=== PATIENT | female | born 1965 | race Caucasian/White ===

== ENCOUNTER → 2016-10-11 | Outpatient (CLI) | payer OTHER ==
--- NOTE | 2016-10-11 12:22 | MR ---
EXAMINATION TYPE: MR brain wo/w con DATE OF EXAM: 10/11/2016 8:55 AM COMPARISON: 10/16/2015 and 07/23/2012. HISTORY: 50-year-old female with dysphagia. TECHNIQUE: Multiplanar, multisequence images of the brain and brainstem were acquired before and aft er administration of 15 mL IV MultiHance. Diffusion weighted imaging is performed. FINDINGS: No evidence for acute infarction, hemorrhage, mass, mass effect, midline shift, herniation, effacemen t of basal cisterns, or extra-axial fluid collection. The ventricles and sulci are age-appropriate. Major intracranial flow voids are intact. On T2/FLAIR weighted sequencing: - A couple foci of bright signal in the posterior right frontal juxtacortical white matter are redemo nstrated, stable, measuring up to 6 mm. - A 5 mm focus in the left pericallosal white matter is unchanged. - 2-3 foci in the juxtacortical and deep white matter of the left frontal lobe anteriorly are unchang ed. - A 4 mm focus in the lateral and inferior left frontal lobe, axial image 19 is unchanged. Midline structures demonstrate normal morphology. The craniocervical junction is normal. Post contrast images demonstrate no evidence of pathologic enhancement. Dural venous sinuses are pat ent. Rightward nasal septal deviation and mild mucosal thickening within the ethmoid air cells. Globes are intact. IMPRESSION: 1. Stable nonspecific T2 bright signal foci with minimal to mild overall burden. 2. No acute intracranial abnormality seen.
== END | disposition home or self-care (01) ==
LOC: RADMRIMAIN 08:05
PROVIDERS: ATTEND Psychiatry & Neurology Neurology
DX: R93.0 Abnormal findings on diagnostic imaging of skull and head, not elsewhere classified (principal); R13.10 Dysphagia, unspecified
CPT/HCPCS: 70553; A9577

== ENCOUNTER → 2016-10-12 | Outpatient (CLI) | payer OTHER ==
--- NOTE | 2016-10-12 11:39 | FL ---
EXAMINATION TYPE: FL barium swallow DATE OF EXAM ORDERED: 10/12/2016 9:19 AM HISTORY: Dysphagia. COMPARISON: Previous study of 05/12/2016. FINDINGS: The patient swallowed barium of these. There is no evidence of obstructing or constricting disease. There is a prominent Schatzki's B ring in the lower esophagus. The mucosal pattern througho ut the esophagus is unremarkable. Limited views of the stomach are normal. IMPRESSION: PROMINENT SCHATZKI B RING IN THE LOWER ESOPHAGUS.
== END | disposition home or self-care (01) ==
LOC: RADFLWHC 08:17
PROVIDERS: ATTEND Psychiatry & Neurology Neurology
DX: K22.2 Esophageal obstruction (principal)
CPT/HCPCS: 74220

== ENCOUNTER → 2016-10-14 | Outpatient (CLI) | payer OTHER ==
--- NOTE | 2016-10-14 10:01 | CT ---
EXAMINATION TYPE: CT soft tissue neck wo con DATE OF EXAM: 10/14/2016 9:31 AM HISTORY: Pt states her neck "collapses" if she doesn't wear soft collar causing her dysphagia and NINO COMPARISON: NONE CT DLP: 271 mGycm. Automated Exposure Control for Dose Reduction was Utilized. TECHNIQUE: CT scan of the neck is performed without IV contrast, axial images are obtained, coronal and sagittal reformatted images are reviewed. FINDINGS: Exam is noted suboptimal due to lack of IV contrast limiting evaluation for mucosal lesions and subcentimeter adenopathy. Airway: Nasopharyngeal and oropharyngeal airways are grossly patent. Region of epiglottis and vallecu la appears within normal limits. Hypopharyngeal airway extending into proximal trachea is unremarkabl e. Thyroid gland is within normal limits in size. Visualized lung apices are clear with minimal apica l scarring bilaterally noted. Parotid/submandibular glands: No gross abnormality seen. Carotid/Vascular Structures: No significant calcified plaque identified in the carotid bulb level. Osseous Structures: Nasal septum is noted deviated to right of midline possibly related to remote tra stefani. Paranasal sinuses are clear. Other: Some scattered subcentimeter lymph nodes are seen throughout the neck bilaterally. No greater than 1 cm suspicious neck lymph nodes are clearly identified. IMPRESSION: No significant abnormality is seen. Visualized airway is felt within normal limits.
== END | disposition home or self-care (01) ==
LOC: RADCTMAIN 09:15
PROVIDERS: ATTEND Psychiatry & Neurology Neurology
DX: R13.10 Dysphagia, unspecified (principal)
CPT/HCPCS: 70490

== ENCOUNTER 2016-11-18 09:18 | Day surgery (SDC) | payer OTHER ==
[2016-11-15 15:42] VITALS: BMI 23.3
[~2016-11-18 09:18] MED LIST: LACTATED RINGERS 1,000 ML IV SCH
[2016-11-18 09:38] VITALS: RESP 16; TEMP 97.8
[2016-11-18] MEDS ORDERED: PROPOFOL 10 MG/ML 20 ML VIAL IV ONE (10:24)
[2016-11-18] MEDS ORDERED: LIDOCAINE 1% INJ 10MG/ML (20 ML MDV) ONE (10:24)
--- NOTE | 2016-11-18 10:37 | P.PCN ---
Date of Procedure: 11/18/16 Procedure(s) Performed: BRIEF HISTORY: Patient is a 51-year-old, pleasant, white female, scheduled for an upper endoscopy as a part of evaluation of dysphagia for the last 2 months duration. She recently had a CT of the neck and was unremarkable. Her symptoms started after she had Botox injection for chronic migraines. She reports no heartburn and denies any odynophagia. PROCEDURE PERFORMED: Esophagogastroduodenoscopy with biopsy. PREOPERATIVE DIAGNOSIS: Dysphagia of 2 months duration. IV sedation per anesthesia. PROCEDURE: After informed consent was obtained, the patient was brought into the endoscopy unit. IV conscious sedation was administered by Anesthesia under continuous monitoring. Initially the Olympus GIF-140 video endoscope was inserted into the mouth. Esophagus intubated without any difficulty. It was gradually advanced into the stomach and duodenum and carefully examined. The bulb and the second part of the duodenum appeared normal. The scope at this time was withdrawn to the stomach, adequately insufflated with air, and upon careful examination, mucosa of the antrum mild gastritis and biopsies were done from this area. The body, cardia and the fundus appeared normal. There was evidence of Penny fundoplication noted. The scope was then withdrawn into the esophagus. The GE junction was located at 36 cm from the incisors. Biopsies were done from the distal esophagus to rule out eosinophilic esophagitis. The esophagus appeared normal. There were no erosions or ulcerations seen. The proximal cervical esophagus was carefully examined and no obvious mucosal lesions identified and the patient tolerated the procedure well. IMPRESSION: 1. Normal-appearing esophagus with no evidence of esophagitis, esophageal stricture or esophageal web. 2. Mild antral gastritis. RECOMMENDATIONS: The findings of this examination were discussed with the patient as well as her family. She was advised to follow with the biopsy results. If she continues to have persistent symptoms and dysphagia will consider proceeding with a modified barium swallow to evaluate for oropharyngeal dysphagia.
[2016-11-18 10:55] VITALS: BP 138/71; PULSE 58
== END 2016-11-18 11:40 | disposition home or self-care (01) ==
LOC: ORWHC2ENDO 09:18
PROVIDERS: ATTEND Internal Medicine Gastroenterology
DX: K29.50 Unspecified chronic gastritis without bleeding (principal); K20.9 Esophagitis, unspecified; G43.909 Migraine, unspecified, not intractable, without status migrainosus; J45.909 Unspecified asthma, uncomplicated; J44.9 Chronic obstructive pulmonary disease, unspecified; N20.9 Urinary calculus, unspecified; M79.7 Fibromyalgia; F39 Unspecified mood [affective] disorder; Z79.891 Long term (current) use of opiate analgesic; Z79.899 Other long term (current) drug therapy
CPT/HCPCS: 88305; 88342; 43239; J2001; J2704

== ENCOUNTER 2016-12-04 13:20 | Emergency (ER) | payer OTHER ==
[2016-12-04 13:27] VITALS: BP 140/70; PULSE 99; RESP 18; TEMP 97.8
[2016-12-04] MEDS ORDERED: SODIUM CHLORIDE 0.9% 1,000 ML IV STA ×2 (14:37)
[2016-12-04] MEDS ORDERED: RX INFO: IV CONTRAST WAS GIVEN 1 EACH MISC MISCELLANE PRN (14:37)
[2016-12-04] MEDS ORDERED: IOHEXOL 350 MG/ML 25 ML BOTTLE (ORAL USE) PO PRN (14:37)
[2016-12-04] MEDS ORDERED: ONDANSETRON 4 MG/2 ML VIAL IVP STA (14:37)
[2016-12-04] MEDS ORDERED: DICYCLOMINE 10 MG/ML 2 ML AMP IM STA (14:39)
--- NOTE | 2016-12-04 14:48 | ED ---
Nausea/Vomiting/Diarrhea HPI - General Chief complaint: Nausea/Vomiting/Diarrhea Stated complaint: Female Source: patient Mode of arrival: ambulatory Limitations: no limitations - History of Present Illness Initial comments: Patient is a 51-year-old female who presents for evaluation for 1+ month of constant diarrhea and left lower quadrant abdominal cramping. Past medical history as below. Patient has a known history of colitis and had constant nausea and vomiting in the past. She is followed by GI. Recently had an EGD on 11/18/2016 which revealed gastritis. Michael has a history of a Schatzki be ringing in the lower esophagus. She stated that she also had a colonoscopy a few weeks ago which was apparently normal and that there were no "bacteria there ". Again she has been having one month of constant diarrhea. She is tried Pepto-Bismol, Imodium with no relief. She is also tried increasing her fiber. She discussed this with her purchasing manager who told her to continue the course. She comes in today because the diarrhea has significantly worsened. She is somewhat incontinent. She stated that she had dark stools which are now an orange color. She also stated that she recently "passed out" while having a bowel movement. She states whenever she drinks or eats immediately goes to her system. She also has some mild nausea and vomiting which is at baseline for her. No significant change. She denies fever, headaches, URI symptoms, shortness of breath, cough, chest pain, significant abdominal pain, pain or burning with urination. - Related Data Home Medications Medication Instructions Recorded Confirmed Albuterol Inhaler [Ventolin Hfa 1 - 2 puff INHALATION RT-Q6H PRN 02/10/16 Inhaler] Baclofen [Lioresal] 10 mg PO TID PRN 02/10/16 12/04/16 Butalb/APAP/Caff 50-325-40Mg 1 tab PO BID PRN 02/10/16 12/04/16 [Fioricet 50-325-40] Cholecalciferol [Vitamin D3] 2,000 unit PO DAILY 02/10/16 12/04/16 Dicyclomine [Bentyl] 10 mg PO TID 02/10/16 12/04/16 Gabapentin [Neurontin] 600 mg PO BID 02/10/16 12/04/16 Glucosamine HCl/Chondr Watters A Na 1 tab PO DAILY 02/10/16 12/04/16 [Osteo Bi-Flex Caplet] Mesalamine [Asacol Hd] 400 mg PO TID 02/10/16 12/04/16 Ondansetron [Zofran ODT] 8 mg PO Q8HR PRN 02/10/16 12/04/16 Simvastatin [Zocor] 20 mg PO HS 02/10/16 12/04/16 Verapamil HCl [Calan] 120 mg PO HS 02/10/16 12/04/16 Sertraline [Zoloft] 50 mg PO DAILY 11/15/16 12/04/16 Black Cohosh Root [Black Cohosh] 200 mg PO DAILY 12/04/16 12/04/16 DULoxetine HCL [Cymbalta] 60 mg PO DAILY 12/04/16 12/04/16 HYDROcodone/APAP 5-325MG [Wister 1 tab PO Q6H PRN 12/04/16 12/04/16 5-325] Previous Rx's Medication Instructions Recorded metroNIDAZOLE [Flagyl] 500 mg PO Q8HR 14 Days 12/04/16 Allergies Allergy/AdvReac Type Severity Reaction Status Date / Time venom-honey bee Allergy Severe Throat Verified 12/04/16 15:05 [bee venom (honey bee)] Swelling coconut oil Allergy Unknown Rash/Hives Verified 12/04/16 15:05 Review of Systems ROS Statement: Those systems with pertinent positive or pertinent negative responses have been documented in the HPI. ROS Other: All systems not noted in ROS Statement are negative. 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 , STATES SHE IS HAVING ALOT OF NECK PAIN AND SOME S.O.B. History of Any Multi-Drug Resistant Organisms: None Reported Past Surgical History: Appendectomy, Cholecystectomy, Hysterectomy, Orthopedic Surgery, Tubal Ligation, Uterine Ablation Additional Past Surgical History / Comment(s): carpel tunnel to left, ganglion cyst, SYED FUNDOPLASTY. Past Anesthesia/Blood Transfusion Reactions: No Reported Reaction Past Psychological History: Anxiety, Depression Additional Psychological History / Comment(s): NO MEDS. Smoking Status: Light tobacco smoker Past Alcohol Use History: Rare Additional Past Alcohol Use History / Comment(s): quit smoking 5-12-15, smoked on & off 30 yrs. CURRENTLY SMOKES OCCASIONALLY WITH STRESS. Past Drug Use History: Marijuana - Past Family History Mother Family Medical History: No Reported History General Exam Limitations: no limitations General appearance: alert, in no apparent distress, other (Well-appearing) Head exam: Present: atraumatic, normocephalic, normal inspection Eye exam: Present: normal appearance, PERRL, EOMI. Absent: scleral icterus, conjunctival injection, periorbital swelling ENT exam: Present: normal exam, mucous membranes dry, mucous membranes moist Neck exam: Present: normal inspection. Absent: tenderness, meningismus, lymphadenopathy Respiratory exam: Present: normal lung sounds bilaterally. Absent: respiratory distress, wheezes, rales, rhonchi, stridor Cardiovascular Exam: Present: regular rate, normal rhythm, normal heart sounds. Absent: systolic murmur, diastolic murmur, rubs, gallop, clicks GI/Abdominal exam: Present: soft, normal bowel sounds, other (Hyperactive bowel sounds in all 4 quadrants. No high-pitched bowel sounds to suggest obstruction. Abdomen is soft. Pain with palpation in the left lower quadrant. She actually grabbed my hand and told me to stop. No peritoneal signs. No rebound tenderness.). Absent: distended, tenderness, guarding, rebound, rigid Extremities exam: Present: normal inspection, full ROM, normal capillary refill. Absent: tenderness, pedal edema, joint swelling, calf tenderness Back exam: Present: normal inspection Neurological exam: Present: alert, oriented X3, CN II-XII intact Psychiatric exam: Present: normal affect, normal mood Skin exam: Present: warm, dry, intact, normal color. Absent: rash Course Vital Signs 12/04/16 13:24 Temperature 97.8 F Pulse Rate 99 Respiratory 18 Rate Blood Pressure 140/70 O2 Sat by Pulse 100 Oximetry Medical Decision Making - Medical Decision Making Patient resents for evaluation for left lower quadrant abdominal pain, constant diarrhea over the past 1+ month. Has a purchasing manager for follow-up. With her history of colitis and left lower quadrant pain we'll get a CT with by mouth and IV contrast. Abdominal labs. IV fluids. Zofran. Bentyl. We'll also order stool studies. 1702: Laboratory studies as below. Within normal limits. No significant leukocytosis. +1 ketones in the urine. No urinary tract infection. Noted to have fecal occult positive stool. However, the patient is regularly taking Pepto-Bismol and is most likely a false negative as she is not having black or bright red stools. Notified by staff that the patient tested positive for C. diff. Awaiting CT abdomen and pelvis. 1810: Reviewed CT findings. Evidence of pancolitis. No signs of perforation. No free air in the abdomen. No other acute abnormalities. Discussed the findings with the patient. Gave patient the option of observation here versus discharge home with prescription for Flagyl and follow-up with her purchasing manager to his outside of this hospital system. She is actually an excellent candidate as there are no signs of ileus, leukocytosis, intractable pain. Discussed risks and benefits. Patient elected to the discharge home with follow-up with her own purchasing manager in the [facility] system. We will write a prescription for 14 days of Flagyl. Recommended that she discontinue all of her intestine motility drugs including lynzest, Bentyl, loperamide. Patient voiced understanding. Also recommended that she avoid playing with children are elderly. Frequent handwashing. We will contact her purchasing manager tomorrow morning for follow-up appointment. Discussed signs and symptoms on when to return to the emergency department for further evaluation. This includes high fevers, worsening diarrhea, black stools, severe abdominal pain, or any other changes in her symptoms. - Lab Data Result diagrams: 12/04/16 15:25 12/04/16 15:25 Lab Results 12/04/16 12/04/16 12/04/16 Range/Units 15:25 15:25 15:25 WBC 10.7 H (3.8-10.6) k/uL RBC 4.40 (3.80-5.40) m/uL Hgb 14.0 (11.4-16.0) gm/dL Hct 40.9 (34.0-46.0) % MCV 92.9 (80.0-100.0) fL MCH 31.8 (25.0-35.0) pg MCHC 34.2 (31.0-37.0) g/dL RDW 13.2 (11.5-15.5) % Plt Count 239 (150-450) k/uL Neutrophils % 77 % Lymphocytes % 8 % Monocytes % 11 % Eosinophils % 1 % Basophils % 0 % Neutrophils # 8.2 H (1.3-7.7) k/uL Lymphocytes # 0.9 L (1.0-4.8) k/uL Monocytes # 1.2 H (0-1.0) k/uL Eosinophils # 0.1 (0-0.7) k/uL Basophils # 0.0 (0-0.2) k/uL Sodium 139 (137-145) mmol/L Potassium 3.5 (3.5-5.1) mmol/L Chloride 101 (98-107) mmol/L Carbon Dioxide 23 (22-30) mmol/L Anion Gap 15 mmol/L BUN 13 (7-17) mg/dL Creatinine 0.67 (0.52-1.04) mg/dL Est GFR (MDRD) Af Amer >60 (>60 ml/min/1.73 sqM) Est GFR (MDRD) Non-Af >60 (>60 ml/min/1.73 sqM) Glucose 87 (74-99) mg/dL Calcium 9.2 (8.4-10.2) mg/dL Total Bilirubin 0.6 (0.2-1.3) mg/dL AST 28 (14-36) U/L ALT 38 (9-52) U/L Alkaline Phosphatase 94 (38-126) U/L Total Protein 6.3 (6.3-8.2) g/dL Albumin 3.7 (3.5-5.0) g/dL Amylase <30 L (30-110) U/L Lipase 14 L (23-300) U/L Urine Color Yellow Urine Appearance Cloudy H (Clear) Urine pH 6.0 (5.0-8.0) Ur Specific [place] 1.019 (1.001-1.035) Urine Protein Trace H (Negative) Urine Glucose (UA) Negative (Negative) Urine Ketones 1+ H (Negative) Urine Blood Negative (Negative) Urine Nitrate Negative (Negative) Urine Bilirubin Negative (Negative) Urine Urobilinogen <2.0 (<2.0) mg/dL Ur Leukocyte Esterase Negative (Negative) Urine RBC 2 (0-5) /hpf Urine WBC 2 (0-5) /hpf Ur Squamous Epith Cells 11 H (0-4) /hpf Amorphous Sediment Occasional H (None) /hpf Hyaline Casts 1 (0-2) /lpf Urine Mucus Rare H (None) /hpf Stool Occult Blood (Negative) C. difficile (EIA) Intrp (Negative) 12/04/16 12/04/16 Range/Units 16:11 16:11 WBC (3.8-10.6) k/uL RBC (3.80-5.40) m/uL Hgb (11.4-16.0) gm/dL Hct (34.0-46.0) % MCV (80.0-100.0) fL MCH (25.0-35.0) pg MCHC (31.0-37.0) g/dL RDW (11.5-15.5) % Plt Count (150-450) k/uL Neutrophils % % Lymphocytes % % Monocytes % % Eosinophils % % Basophils % % Neutrophils # (1.3-7.7) k/uL Lymphocytes # (1.0-4.8) k/uL Monocytes # (0-1.0) k/uL Eosinophils # (0-0.7) k/uL Basophils # (0-0.2) k/uL Sodium (137-145) mmol/L Potassium (3.5-5.1) mmol/L Chloride (98-107) mmol/L Carbon Dioxide (22-30) mmol/L Anion Gap mmol/L BUN (7-17) mg/dL Creatinine (0.52-1.04) mg/dL Est GFR (MDRD) Af Amer (>60 ml/min/1.73 sqM) Est GFR (MDRD) Non-Af (>60 ml/min/1.73 sqM) Glucose (74-99) mg/dL Calcium (8.4-10.2) mg/dL Total Bilirubin (0.2-1.3) mg/dL AST (14-36) U/L ALT (9-52) U/L Alkaline Phosphatase (38-126) U/L Total Protein (6.3-8.2) g/dL Albumin (3.5-5.0) g/dL Amylase (30-110) U/L Lipase (23-300) U/L Urine Color Urine Appearance (Clear) Urine pH (5.0-8.0) Ur Specific [place] (1.001-1.035) Urine Protein (Negative) Urine Glucose (UA) (Negative) Urine Ketones (Negative) Urine Blood (Negative) Urine Nitrate (Negative) Urine Bilirubin (Negative) Urine Urobilinogen (<2.0) mg/dL Ur Leukocyte Esterase (Negative) Urine RBC (0-5) /hpf Urine WBC (0-5) /hpf Ur Squamous Epith Cells (0-4) /hpf Amorphous Sediment (None) /hpf Hyaline Casts (0-2) /lpf Urine Mucus (None) /hpf Stool Occult Blood Positive H (Negative) C. difficile (EIA) Intrp Positive A (Negative) Disposition Clinical Impression: C. difficile colitis, Diarrhea Disposition: HOME SELF-CARE Condition: Good Instructions: Clostridium Difficile Infection (ED) Prescriptions: metroNIDAZOLE [Flagyl] 500 mg PO Q8HR 14 Days Referrals: Holly Jaffe DO [Primary Care Provider] - 1-2 days
[2016-12-04 15:48] LABS: ALT 38 U/L (9-52); AST 28 U/L (14-36); Alkaline Phosphatase 94 U/L (38-126); Amylase <30 U/L (30-110); Anion Gap 15 mmol/L; Blood Urea Nitrogen 13 mg/dL (7-17); Calcium 9.2 mg/dL (8.4-10.2); Carbon Dioxide 23 mmol/L (22-30); Chloride 101 mmol/L (98-107); Glucose 87 mg/dL (74-99); Non-African American GFR(MDRD) >60 (>60 ml/min/1.73 sqM); Potassium 3.5 mmol/L (3.5-5.1); Sodium 139 mmol/L (137-145); Total Bilirubin 0.6 mg/dL (0.2-1.3); Total Protein 6.3 g/dL (6.3-8.2)
[2016-12-04 15:52] LABS: Basophils % (A) 0 %; CH 31.8; CHCM 34.4; Eosinophils # (A) 0.1 k/uL (0-0.7); Eosinophils % (A) 1 %; HCT 40.9 % (34.0-46.0); HDW 2.53; Immature Gran Flag Slight; Luc # (Auto) 0.28; Luc % (Auto) 3; Lymphocytes # (A) 0.9 k/uL (1.0-4.8); Lymphocytes % (A) 8 %; MCH 31.8 pg (25.0-35.0); MCHC 34.2 g/dL (31.0-37.0); MCV 92.9 fL (80.0-100.0); Mean Platelet Volume 7.7; Monocytes # (A) 1.2 k/uL (0-1.0); Monocytes % (A) 11 %; Neutrophils # (A) 8.2 k/uL (1.3-7.7); Neutrophils % (A) 77 %; RDW 13.2 % (11.5-15.5); WBC 10.7 k/uL (3.8-10.6); WBC (Perox) 11.03
[2016-12-04 16:05] LABS: Amorphous Sediment,Urine Occasional /hpf; Appearance,Urine Cloudy (Clear); Bilirubin,Urine Negative (Negative); Glucose,Urine (UA) Negative (Negative); Ketones,Urine 1+ (Negative); Leukocyte Esterase,Urine Negative (Negative); Mucus,Urine Rare /hpf; Nitrite,Urine Negative (Negative); Particle Count 2374; Protein,Urine Trace (Negative); RBC,Urine 2 /hpf (0-5); Specific Gravity,Urine 1.019 (1.001-1.035); Squamous Epithelial Cell,Urine 11 /hpf (0-4); UA Billing (MACRO vs. MICRO) MICRO; Urobilinogen,Urine <2.0 mg/dL (<2.0); WBC,Urine 2 /hpf (0-5)
--- NOTE | 2016-12-04 17:37 | CT ---
EXAMINATION TYPE: CT abdomen pelvis w con DATE OF EXAM: 12/04/2016 5:23 PM COMPARISON: 02/16/2012 HISTORY: Patient complains of LLQ pain nausea/vommitting/diarrhea. CT DLP: 426.8 mGycm CONTRAST: CT scan of the abdomen and pelvis is performed with Oral Contrast and with IV Contrast, patient injec julian with 100 mL of Omnipaque 300. FINDINGS: LUNG BASES-: No visible nodule. No infiltrate. LIVER/GB: Cholecystectomy changes identified. No space occupying hepatic lesion. Biliary tree is o f normal caliber. PANCREAS: No inflammation. No distinct mass. SPLEEN: No splenic enlargement. No lesion seen. ADRENALS: No nodule. No thickening. KIDNEYS/BLADDER: No hydronephrosis. No nephrolithiasis. No cystic changes noted. Urinary bladder g rossly unremarkable. BOWEL: There is contiguous wall thickening from the rectum to the cecum compatible with pancolitis of uncertain etiology. Consider inflammatory process such as ulcerative colitis as well as infectious c olitis. Small bowel is of normal caliber. No evidence for perforation or abscess. Appendectomy change s identified. GENITAL ORGANS: No gross abnormality. LYMPH NODES: No greater than 1cm abdominal or pelvic lymph nodes are appreciated. AORTA: No significant abnormality. OSSEOUS STRUCTURES: No significant abnormality is seen. OTHER: No significant additional abnormality is seen. IMPRESSION: 1. There is contiguous wall thickening from the rectum to the cecum compatible with pancolitis of unc ertain etiology. Consider inflammatory process such as ulcerative colitis as well as infectious colit is.
[2016-12-04] MEDS ORDERED: metroNIDAZOLE 500 MG TAB PO STA (18:11)
== END 2016-12-04 18:40 | disposition home or self-care (01) ==
LOC: EC 13:20
DX: A04.7 Enterocolitis due to Clostridium difficile (principal); M79.7 Fibromyalgia; F41.9 Anxiety disorder, unspecified; F32.9 Major depressive disorder, single episode, unspecified; M19.90 Unspecified osteoarthritis, unspecified site; F17.200 Nicotine dependence, unspecified, uncomplicated; Z79.1 Long term (current) use of non-steroidal anti-inflammatories (NSAID); Z87.11 Personal history of peptic ulcer disease; Z87.19 Personal history of other diseases of the digestive system
CPT/HCPCS: 36415; 80053; 82150; 83690; 85025; 82272; 81001; 87324; 87045; 89055; 87046; 74177; 99284; 96374; 96361 ×2; 96372; J0500; J2405; Q9967

== ENCOUNTER 2016-12-24 10:23 | Inpatient (IN) | payer OTHER ==
[2016-12-24] MEDS ORDERED: SODIUM CHLORIDE 0.9% 500 ML IV STA (11:05)
[2016-12-24] MEDS ORDERED: SODIUM CHLORIDE 0.9% 1,000 ML IV STA ×2 (11:05)
[2016-12-24] MEDS ORDERED: MORPHINE SULFATE 4 MG/ML SYRINGE IVP STA (11:58)
[2016-12-24] MEDS ORDERED: PANTOPRAZOLE 40 MG/10 ML VIAL IVP STA (11:58)
[2016-12-24] MEDS ORDERED: ACETAMINOPHEN IV (For NPO) 1,000 MG in EMPTY BAG 1 BAG IVPB STA (11:58)
[2016-12-24] MEDS ORDERED: ONDANSETRON 4 MG/2 ML VIAL IVP STA (11:58)
[2016-12-24] MEDS ORDERED: DICYCLOMINE 10 MG/ML 2 ML AMP IM STA (11:58)
[2016-12-24] MEDS ORDERED: LEVOFLOXACIN 750MG-D5W PMX 750 MG in DEXTROSE/WATER 1 150ML.BAG IVPB STA (12:08)
[2016-12-24] MEDS ORDERED: metroNIDAZOLE-NS PMX 500 MG in SALINE 1 100ML.BAG IVPB STA (12:08)
--- NOTE | 2016-12-24 12:09 | ED ---
General Adult HPI - General Chief complaint: Abdominal Pain Stated complaint: ABDOMINAL PAIN, DIARRHEA, MIGRAINE Time Seen by Provider: 12/24/16 11:01 Source: patient, RN notes reviewed, old records reviewed Mode of arrival: ambulatory Limitations: no limitations - History of Present Illness Initial comments: This is a 31-year-old female here for evaluation. This represents for evaluation of severe diarrhea abdominal cramping. Patient states she does have history of C. diff colitis. Patient states the symptoms have been going on for a day or so now, she had recent significant about 3 months ago, symptoms did improve between then and now the symptoms are worse now than before. Diarrhea 15 times a day by mouth liquid dark diarrhea foul-smelling. No travel history of similar sick contacts. no recent antibiotic use otherwise - Related Data Home Medications Medication Instructions Recorded Confirmed Albuterol Inhaler [Ventolin Hfa 1 - 2 puff INHALATION RT-Q6H PRN 02/10/16 Inhaler] Baclofen [Lioresal] 10 mg PO TID PRN 02/10/16 12/24/16 Butalb/APAP/Caff 50-325-40Mg 1 tab PO BID PRN 02/10/16 12/24/16 [Fioricet 50-325-40] Cholecalciferol [Vitamin D3] 2,000 unit PO DAILY 02/10/16 12/24/16 Dicyclomine [Bentyl] 10 mg PO TID 02/10/16 12/24/16 Gabapentin [Neurontin] 600 mg PO BID 02/10/16 12/24/16 Glucosamine HCl/Chondr Watters A Na 1 tab PO DAILY 02/10/16 12/24/16 [Osteo Bi-Flex Caplet] Mesalamine [Asacol Hd] 400 mg PO TID 02/10/16 12/24/16 Ondansetron [Zofran ODT] 8 mg PO Q8HR PRN 02/10/16 12/24/16 Simvastatin [Zocor] 20 mg PO HS 02/10/16 12/24/16 Verapamil HCl [Calan] 120 mg PO HS 02/10/16 12/24/16 Sertraline [Zoloft] 50 mg PO DAILY 11/15/16 12/24/16 Black Cohosh Root [Black Cohosh] 200 mg PO DAILY 12/04/16 12/24/16 DULoxetine HCL [Cymbalta] 60 mg PO DAILY 12/04/16 12/24/16 HYDROcodone/APAP 5-325MG [[place] 1 tab PO Q6H PRN 12/04/16 12/24/16 5-325] Allergies Allergy/AdvReac Type Severity Reaction Status Date / Time venom-honey bee Allergy Severe Throat Verified 12/24/16 10:50 [bee venom (honey bee)] Swelling coconut oil Allergy Unknown Rash/Hives Verified 12/24/16 10:50 Review of Systems ROS Statement: Those systems with pertinent positive or pertinent negative responses have been documented in the HPI. ROS Other: All systems not noted in ROS Statement are negative. 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 , STATES SHE IS HAVING ALOT OF NECK PAIN AND SOME S.O.B. History of Any Multi-Drug Resistant Organisms: C-DIFF Date of last positivie culture/infection: 2016 MDRO Source:: stool Past Surgical History: Appendectomy, Cholecystectomy, Hysterectomy, Orthopedic Surgery, Tubal Ligation, Uterine Ablation Additional Past Surgical History / Comment(s): carpel tunnel to left, ganglion cyst, SYED FUNDOPLASTY. Past Anesthesia/Blood Transfusion Reactions: No Reported Reaction Past Psychological History: Anxiety, Depression Additional Psychological History / Comment(s): NO MEDS. Smoking Status: Light tobacco smoker Past Alcohol Use History: Rare Additional Past Alcohol Use History / Comment(s): quit smoking 5-12-15, smoked on & off 30 yrs. CURRENTLY SMOKES OCCASIONALLY WITH STRESS. Past Drug Use History: Marijuana - Past Family History Mother Family Medical History: No Reported History General Exam Limitations: no limitations General appearance: alert, in no apparent distress Head exam: Present: atraumatic, normocephalic, normal inspection Eye exam: Present: normal appearance, PERRL, EOMI. Absent: scleral icterus, conjunctival injection, periorbital swelling ENT exam: Present: mucous membranes dry Neck exam: Present: normal inspection. Absent: tenderness, meningismus, lymphadenopathy Respiratory exam: Present: normal lung sounds bilaterally. Absent: respiratory distress, wheezes, rales, rhonchi, stridor Cardiovascular Exam: Present: regular rate, normal rhythm, tachycardia, normal heart sounds. Absent: systolic murmur, diastolic murmur, rubs, gallop, clicks GI/Abdominal exam: Present: soft, normal bowel sounds. Absent: distended, tenderness, guarding, rebound, rigid Extremities exam: Present: normal inspection, full ROM, normal capillary refill. Absent: tenderness, pedal edema, joint swelling, calf tenderness Back exam: Present: normal inspection Neurological exam: Present: alert, oriented X3, CN II-XII intact Psychiatric exam: Present: normal affect, normal mood Skin exam: Present: warm, dry, intact, normal color. Absent: rash Course Vital Signs 12/24/16 10:46 Temperature 98.6 F Pulse Rate 101 H Respiratory 16 Rate Blood Pressure 91/51 O2 Sat by Pulse 96 Oximetry - Reevaluation(s) Reevaluation #1: 12/24/16 13:52 Patient still feeling nauseous with severe diarrhea and cramping Medical Decision Making - Medical Decision Making 51 female the ER for evaluation of infectious diarrhea, severe diarrhea 15-20 times a day, positive for C. diff, patient will be admitted for. Patient's treatment C. diff as well as treatment of possible recurrence of C. diff. Patient was put on IV antibiotics by mouth antibiotics as tolerated and IV fluid resuscitation - Lab Data Result diagrams: 12/24/16 12:30 12/24/16 12:30 Lab Results 12/24/16 12/24/16 12/24/16 Range/Units 12:30 12:30 12:30 WBC 11.0 H (3.8-10.6) k/uL RBC 4.34 (3.80-5.40) m/uL Hgb 13.7 (11.4-16.0) gm/dL Hct 41.5 (34.0-46.0) % MCV 95.6 (80.0-100.0) fL MCH 31.6 (25.0-35.0) pg MCHC 33.0 (31.0-37.0) g/dL RDW 13.9 (11.5-15.5) % Plt Count 300 (150-450) k/uL Neutrophils % 86 % Lymphocytes % 7 % Monocytes % 6 % Eosinophils % 0 % Basophils % 0 % Neutrophils # 9.5 H (1.3-7.7) k/uL Lymphocytes # 0.8 L (1.0-4.8) k/uL Monocytes # 0.6 (0-1.0) k/uL Eosinophils # 0.0 (0-0.7) k/uL Basophils # 0.0 (0-0.2) k/uL PT (9.0-12.0) sec INR (<1.1) APTT (22.0-30.0) sec Sodium 139 (137-145) mmol/L Potassium 4.0 (3.5-5.1) mmol/L Chloride 103 (98-107) mmol/L Carbon Dioxide 24 (22-30) mmol/L Anion Gap 12 mmol/L BUN 18 H (7-17) mg/dL Creatinine 0.62 (0.52-1.04) mg/dL Est GFR (MDRD) Af Amer >60 (>60 ml/min/1.73 sqM) Est GFR (MDRD) Non-Af >60 (>60 ml/min/1.73 sqM) Glucose 95 (74-99) mg/dL Plasma Lactic Acid Nick (0.7-2.0) mmol/L Calcium 9.1 (8.4-10.2) mg/dL Phosphorus 4.4 (2.5-4.5) mg/dL Magnesium 1.7 (1.6-2.3) mg/dL Total Bilirubin 0.6 (0.2-1.3) mg/dL AST 20 (14-36) U/L ALT 25 (9-52) U/L Alkaline Phosphatase 54 (38-126) U/L Total Creatine Kinase 33 (30-135) U/L CK-MB (CK-2) <0.2 (0.0-2.4) ng/mL CK-MB (CK-2) Rel Index Troponin I <0.012 (0.000-0.034) ng/mL Total Protein 6.1 L (6.3-8.2) g/dL Albumin 3.7 (3.5-5.0) g/dL 12/24/16 12/24/16 Range/Units 12:30 12:30 WBC (3.8-10.6) k/uL RBC (3.80-5.40) m/uL Hgb (11.4-16.0) gm/dL Hct (34.0-46.0) % MCV (80.0-100.0) fL MCH (25.0-35.0) pg MCHC (31.0-37.0) g/dL RDW (11.5-15.5) % Plt Count (150-450) k/uL Neutrophils % % Lymphocytes % % Monocytes % % Eosinophils % % Basophils % % Neutrophils # (1.3-7.7) k/uL Lymphocytes # (1.0-4.8) k/uL Monocytes # (0-1.0) k/uL Eosinophils # (0-0.7) k/uL Basophils # (0-0.2) k/uL PT 10.9 (9.0-12.0) sec INR 1.1 (<1.1) APTT 21.9 L (22.0-30.0) sec Sodium (137-145) mmol/L Potassium (3.5-5.1) mmol/L Chloride (98-107) mmol/L Carbon Dioxide (22-30) mmol/L Anion Gap mmol/L BUN (7-17) mg/dL Creatinine (0.52-1.04) mg/dL Est GFR (MDRD) Af Amer (>60 ml/min/1.73 sqM) Est GFR (MDRD) Non-Af (>60 ml/min/1.73 sqM) Glucose (74-99) mg/dL Plasma Lactic Acid Nick 2.3 H* (0.7-2.0) mmol/L Calcium (8.4-10.2) mg/dL Phosphorus (2.5-4.5) mg/dL Magnesium (1.6-2.3) mg/dL Total Bilirubin (0.2-1.3) mg/dL AST (14-36) U/L ALT (9-52) U/L Alkaline Phosphatase (38-126) U/L Total Creatine Kinase (30-135) U/L CK-MB (CK-2) (0.0-2.4) ng/mL CK-MB (CK-2) Rel Index Troponin I (0.000-0.034) ng/mL Total Protein (6.3-8.2) g/dL Albumin (3.5-5.0) g/dL Disposition Clinical Impression: C. difficile colitis, Diarrhea, Migraine Disposition: ADMITTED IP TO THIS HOSP Condition: Good Referrals: Holly Jaffe DO [Primary Care Provider] - 1-2 days
[2016-12-24 13:07] LABS: Basophils % (A) 0 %; CH 31.8; CHCM 33.4; Eosinophils % (A) 0 %; HCT 41.5 % (34.0-46.0); HDW 2.35; HGB 13.7 gm/dL (11.4-16.0); Luc # (Auto) 0.12; Luc % (Auto) 1; Lymphocytes # (A) 0.8 k/uL (1.0-4.8); Lymphocytes % (A) 7 %; MCH 31.6 pg (25.0-35.0); MCV 95.6 fL (80.0-100.0); Mean Platelet Volume 7.6; Monocytes # (A) 0.6 k/uL (0-1.0); Monocytes % (A) 6 %; Neutrophils # (A) 9.5 k/uL (1.3-7.7); Neutrophils % (A) 86 %; RBC 4.34 m/uL (3.80-5.40); RDW 13.9 % (11.5-15.5); WBC (Perox) 12.18
[2016-12-24 13:10] LABS: INR 1.1 (<1.1); Partial Thromboplastin Time 21.9 sec (22.0-30.0); Prothrombin Time 10.9 sec (9.0-12.0)
[2016-12-24 13:11] LABS: ALT 25 U/L (9-52); AST 20 U/L (14-36); Alkaline Phosphatase 54 U/L (38-126); Anion Gap 12 mmol/L; Blood Urea Nitrogen 18 mg/dL (7-17); Calcium 9.1 mg/dL (8.4-10.2); Carbon Dioxide 24 mmol/L (22-30); Chloride 103 mmol/L (98-107); Glucose 95 mg/dL (74-99); Magnesium 1.7 mg/dL (1.6-2.3); Non-African American GFR(MDRD) >60 (>60 ml/min/1.73 sqM); Phosphorous 4.4 mg/dL (2.5-4.5); Sodium 139 mmol/L (137-145); Total Bilirubin 0.6 mg/dL (0.2-1.3); Total Protein 6.1 g/dL (6.3-8.2)
[2016-12-24 13:25] LABS: Creatine Kinase 33 U/L (30-135)
[2016-12-24 13:38] LABS: Creatine Kinase MB <0.2 ng/mL (0.0-2.4); Troponin I <0.012 ng/mL (0.000-0.034)
[2016-12-24] MEDS ORDERED: FIDAXOMICIN 200 MG TABLET PO ONE (13:51)
[2016-12-24] MEDS ORDERED: MORPHINE SULFATE 4 MG/ML SYRINGE IVP PRN (13:54)
[2016-12-24] MEDS ORDERED: SODIUM CHLORIDE 0.9% 1,000 ML IV ONE (13:54)
[2016-12-24] MEDS ORDERED: BACLOFEN 10 MG TAB PO PRN (14:51)
[2016-12-24] MEDS ORDERED: MELATONIN 5 MG TABLET PO PRN (14:51)
[2016-12-24] MEDS ORDERED: ONDANSETRON ODT 8 MG TAB.RAPDIS PO PRN (14:51)
[2016-12-24] MEDS ORDERED: HYDROcodone/APAP 5-325MG 1 EACH TAB PO PRN (14:51)
[2016-12-24] MEDS ORDERED: VANCOMYCIN ORAL SOLUTION 250 MG/5 ML BOTTLE PO SCH (15:00)
[2016-12-24 16:29] VITALS: BMI 23.4
[2016-12-24] MEDS ORDERED: ACETAMINOPHEN TAB 325 MG TAB PO PRN (17:37)
[2016-12-24] MEDS: BALSALAZIDE DISODIUM 750 MG CAPSULE PO SCH ×2 (17:59→21:45)
[2016-12-24] MEDS: CHOLESTYRAMINE (WITH SUGAR) 4 GM PACKET PO SCH (17:59)
[2016-12-24] MEDS: SODIUM CHLORIDE 0.9% 1,000 ML IV SCH ×2 (18:00→23:40)
[2016-12-24] MEDS: CHERRY FLAVOR 60 ML BOTTLE PO SCH ×2 (18:00→23:40)
[2016-12-24] MEDS ORDERED: ACETAMINOPHEN IV (For NPO) 1,000 MG in EMPTY BAG 1 BAG IVPB PRN (18:00)
[2016-12-24] MEDS: VANCOMYCIN ORAL SOLUTION 250 MG/5 ML BOTTLE PO SCH ×2 (18:00→23:40)
[2016-12-24] MEDS: MORPHINE SULFATE 4 MG/ML SYRINGE IVP PRN ×2 (18:02→22:11)
[2016-12-24 19:55] LABS: Appearance,Urine Clear (Clear); Bilirubin,Urine Negative (Negative); Glucose,Urine (UA) Negative (Negative); Ketones,Urine Negative (Negative); Leukocyte Esterase,Urine Negative (Negative); Nitrite,Urine Negative (Negative); PH, Urine 5.5 (5.0-8.0); Protein,Urine Negative (Negative); Specific Gravity,Urine 1.012 (1.001-1.035); UA Billing (MACRO vs. MICRO) CHEM; Urobilinogen,Urine <2.0 mg/dL (<2.0)
[2016-12-24] MEDS ORDERED: FIDAXOMICIN 200 MG TABLET PO SCH (21:00)
[2016-12-24] MEDS ORDERED: VERAPAMIL HCL 120 MG PO SCH (21:00)
--- NOTE | 2016-12-24 21:41 | HP ---
DATE OF ADMISSION: 12/24/2016 The patient with known history of C-diff colitis, came in with severe abdominal pain, abdominal cramping, nausea, vomiting, which is much worse for the last couple of days. Has been going on since last discharge. The patient was discharged ( ) for C-dif. The patient was not ( ), because of which the patient was discharged on oral metronidazole. The patient did not take any antibiotics in the recent past as per the patient. The patient is also having a little bit of suprapubic pain and tenderness, because of which ( ) pain. The patient denies any cough, fevers or chills. The patient does have leukocytosis. Unfortunately the patient was ( ). The patient was initially started on metronidazole and ( ), which were discontinued and the patient was started on vancomycin. The patient will continue with IV fluids. Denies any blood in the stool, dark stools, hematemesis, melena or hematochezia. Home medications: 1. Albuterol. 2. Baclofen. 3. Fioricet. 4. Dicyclamine. 5. Cholecalciferol. 6. Gabapentin. 7. Glucosamine. 8. Mesalamine. 9. ( ). 10. Simvastatin. 11. Verapamil. 12. Sertraline. 13. Zaroxolyn. 14. ( ). ALLERGIES: ( ) PAST MEDICAL HISTORY: Asthma, fibromyalgia, osteoarthritis. PAST SURGICAL HISTORY: Cholecystectomy, hysterectomy, orthopedic surgery, tubal ligation, uterine ablation surgery. SOCIAL HISTORY: Quit smoking in 2014. Denies any alcohol abuse or drug abuse. FAMILY HISTORY: Unknown at this time. Mother and father history unknown per patient. REVIEW OF SYSTEMS: CONSTITUTIONAL: No fever, no malaise, no fatigue. HEENT: No recent visual problems or hearing problems. Denied any sore throat. CARDIOVASCULAR: No chest pain, orthopnea, PND, no palpitations, no syncope. PULMONARY: No shortness of breath, no cough, no hemoptysis. GASTROINTESTINAL: No diarrhea, no nausea, no vomiting, no abdominal pain. Normoactive bowel sounds. NEUROLOGICAL: No headaches, no weakness, no numbness. HEMATOLOGICAL: Denies any bleeding or petechiae. GENITOURINARY: Denies any burning micturition, frequency, or urgency. MUSCULOSKELETAL/RHEUMATOLOGICAL: Denies any joint pain, swelling, or any muscle pain. ENDOCRINE: Denies any polyuria or polydipsia. The rest of the 14 point review of systems is negative. PHYSICAL EXAMINATION: Temperature 98.6, pulse 101, respiratory rate 16, blood pressure 91/51. saturating at 97% on room air. GENERAL: The patient is alert and oriented x3, not in any acute distress. Well developed, well nourished. HEENT: Pupils are round and equally reacting to light. EOMI. No scleral icterus. No conjunctival pallor. Normocephalic, atraumatic. No pharyngeal erythema. No thyromegaly. CARDIOVASCULAR: S1 and S2 present. No murmurs, rubs, or gallops. PULMONARY: Chest is clear to auscultation, no wheezing or crackles. ABDOMEN: Minimal suprapubic tenderness. No rebound or rigidity appreciated. Abdomen soft, nontender, nondistended. MUSCULOSKELETAL: No joint swelling or deformity. EXTREMITIES: No cyanosis, clubbing, or pedal edema. NEUROLOGICAL: Gross neurological examination did not reveal any focal deficits. SKIN: No rashes. LABS: ( ) 11,000, neutrophilic leukocytosis. Comprehensive metabolic profile is essentially within normal limits. ASSESSMENT AND PLAN: 1. C-diff colitis. Start on vancomycin. Patient has been ( ) consistent with ( ) C-diff colitis. The patient's IV fluids will be increased to 125 mL/hour. Lactic acidosis can be related to dehydration as well. 2. Fibromyalgia. 3. ( ). 4. Asthma and chronic obstructive pulmonary disease with any acute exacerbation. 5. Hyperlipidemia. Continue home medications.
[2016-12-24] MEDS: GABAPENTIN 300 MG CAP PO SCH (21:43)
[2016-12-24] MEDS: ATORVASTATIN 10 MG TAB PO SCH (21:44)
[2016-12-24] MEDS: DULoxetine HCL 60 MG CAPSULE.DR PO SCH (21:44)
[2016-12-24] MEDS: VERAPAMIL SR 120 MG TABLET.ER PO SCH (22:19)
[2016-12-25] MEDS ORDERED: metroNIDAZOLE-NS PMX 500 MG in SALINE 1 100ML.BAG IVPB SCH
[2016-12-25] MEDS: MORPHINE SULFATE 4 MG/ML SYRINGE IVP PRN ×4 (02:17→14:35)
[2016-12-25] MEDS: VANCOMYCIN ORAL SOLUTION 250 MG/5 ML BOTTLE PO SCH ×4 (06:07→23:39)
[2016-12-25] MEDS: CHERRY FLAVOR 60 ML BOTTLE PO SCH ×4 (06:08→23:39)
[2016-12-25] MEDS: ALBUTEROL NEBULIZED 2.5 MG/3 ML INHALATION PRN (08:37)
[2016-12-25] MEDS ORDERED: PANTOPRAZOLE 40 MG/10 ML VIAL IVP SCH (09:00)
[2016-12-25] MEDS: GABAPENTIN 300 MG CAP PO SCH ×2 (09:08→21:01)
[2016-12-25] MEDS: SERTRALINE 50 MG TAB PO SCH (09:08)
[2016-12-25] MEDS: CHOLESTYRAMINE (WITH SUGAR) 4 GM PACKET PO SCH ×2 (09:08→18:04)
[2016-12-25] MEDS: SODIUM CHLORIDE 0.9% 1,000 ML IV SCH ×2 (09:08→18:05)
[2016-12-25] MEDS: BALSALAZIDE DISODIUM 750 MG CAPSULE PO SCH ×3 (09:08→21:01)
--- NOTE | 2016-12-25 16:52 | CONS ---
DATE OF CONSULTATION: 12/24/2016 REASON FOR CONSULTATION: C. diff. colitis. HISTORY OF PRESENT ILLNESS: The patient is 51-year-old female with a past medical history significant for ulcerative colitis. The patient was recently diagnosed with C. diff. colitis when she presented to the [facility] ER on 12/04/2016. At that time, the patient had been advised a 10-day course of Flagyl 500 mg 3 times a day. With the Flagyl, the patient's symptoms did improve. The patient said that she was doing well for a week; however, started having diarrhea again on , that is 2 days prior to presentation to the hospital. The patient did have multiple episodes of loose stools almost 12 to 15 per day, is watery, with no blood or mucus in it. The patient did have crampy lower abdominal pain with intensity of about 4 to 5 out of 10 and no radiation. The patient has been nauseated with episode of vomiting, but it improved with Zofran. Patient denies any high-grade fever, though. Subsequently, she was evaluated by the ER physician, where the patient did have an elevated white count 11,000. Stool for C. diff. initially came back positive. The patient then received a dose of levofloxacin and Flagyl IV and has been admitted to the hospital. I was asked to see the patient for further recommendation regarding antibiotic therapy. REVIEW OF SYSTEMS: CONSTITUTIONAL: Positive for weakness, but no high-grade fever. EYES: No complaint. ENT: No complaint. RESPIRATORY: No complaint. CARDIOVASCULAR: No complaint. GENITOURINARY: No complaint. GASTROINTESTINAL: As per HPI. MUSCULOSKELETAL: No complaint. INTEGUMENTARY: No complaint. PSYCHOLOGICAL: No complaint. ENDOCRINE: No complaint. HEMATOLOGIC: No complaint. PAST MEDICAL HISTORY: COPD, asthma, fibromyalgia, osteoarthritis, ulcerative colitis and C. difficile. PAST SURGICAL HISTORY: Appendectomy, cholecystectomy, hysterectomy, tubal ligation, uterine ablation, carpal tunnel to the left and a fundoplication. SOCIAL HISTORY: The patient has smoked off and on for about 30 years; quit back in February 2015. Occasionally drinks. Admitted to marijuana use. FAMILY HISTORY: Nobody with autoimmune disease. ALLERGIES: No known drug allergies. Medications currently include the patient is on: 1. Tylenol. 2. Fioricet. 3. Norvasc. 4. Lipitor. 5. Baclofen. 6. Cymbalta. 7. Neurontin. 8. Melatonin. 9. Morphine sulfate. 10. Zofran. 11. Melipramin. On examination, blood pressure is 91/55 with a pulse of 90, temperature 98.8. She is 95% on room air. General description is a middle-aged female lying in bed in no distress. No tachypnea or accessory muscles of respiration use. HEENT shows no pallor or scleral icterus. Oral mucous membranes dry. NECK: Trachea central. No thyromegaly. LUNGS: Unlabored breathing. Clear to auscultation anteriorly. HEART: S1, S2. Regular rate and rhythm. ABDOMEN: Soft. Very minimally tender in left lower quadrant area. No guarding. No rigidity. EXTREMITIES: No edema of feet. SKIN EXAM : No rash , No mass palpable. NEUROLOGICAL: The patient is awake, alert, oriented x3. Mood and affect were normal. LABS: Hemoglobin is 13.7, white count of 11 with a BUN of 18, creatinine of 0.62. Electrolytes have been normal. Lactic acid was 2.3. Liver enzymes are normal. Stool for C. diff. was positive. DIAGNOSTIC IMPRESSIONPLAN: Patient with acute Clostridium difficile colitis. This being the second episode in a patient who did have underlying ulcerative colitis, who did mention any exposure to antibiotics in the recent past, especially before her first episode of Clostridium difficile that was diagnosed on 12/04/2016. That apparently responded well to the Flagyl, now with recurrence, more likely because of re-germination of the spores. PLAN: 1. Vancomycin 250 p.o. every 6 hours and Questran for symptomatic relief and toxin binding. 2. Patient will be advised to use a probiotic and yogurt intake. 3. Will follow up on the clinical condition and cultures to further adjust the medication if needed. Thank you for this consultation. Will follow this patient along with you. NEEMA
[2016-12-25] MEDS: HYDROcodone/APAP 5-325MG 1 EACH TAB PO PRN (19:28)
[2016-12-25] MEDS: VERAPAMIL SR 120 MG TABLET.ER PO SCH (21:01)
[2016-12-25] MEDS: DULoxetine HCL 60 MG CAPSULE.DR PO SCH (21:01)
[2016-12-25] MEDS: ATORVASTATIN 10 MG TAB PO SCH (21:01)
[2016-12-26] MEDS: SODIUM CHLORIDE 0.9% 1,000 ML IV SCH ×3 (01:45→17:36)
[2016-12-26] MEDS: HYDROcodone/APAP 5-325MG 1 EACH TAB PO PRN ×3 (06:29→21:19)
[2016-12-26] MEDS: CHERRY FLAVOR 60 ML BOTTLE PO SCH ×4 (06:30→23:35)
[2016-12-26] MEDS: VANCOMYCIN ORAL SOLUTION 250 MG/5 ML BOTTLE PO SCH ×4 (06:30→23:35)
[2016-12-26] MEDS: BALSALAZIDE DISODIUM 750 MG CAPSULE PO SCH ×3 (09:09→21:15)
[2016-12-26] MEDS: SERTRALINE 50 MG TAB PO SCH (09:09)
[2016-12-26] MEDS: GABAPENTIN 300 MG CAP PO SCH ×2 (09:09→21:16)
[2016-12-26] MEDS: CHOLESTYRAMINE (WITH SUGAR) 4 GM PACKET PO SCH ×2 (09:10→17:35)
[2016-12-26] MEDS: ONDANSETRON 4 MG/2 ML VIAL IVP PRN ×2 (09:16→21:22)
--- NOTE | 2016-12-26 09:45 | PN ---
DATE OF SERVICE: 12/25/2016 Reason for follow-up: C. dif colitis. INTERVAL HISTORY: The patient is afebrile. Her diarrhea has slightly decreased in frequency However, still having some liquidy stools. She is having pain in the left lower abdominal area, but no worsening. No further nausea or vomiting. Denies having any chest pain or shortness of breath or cough. On examination, blood pressure is 100/59 with a pulse of 74, temperature 97.6, she is 96% on room air. General description is a middle-age female lying in bed in no distress. RESPIRATORY SYSTEM: Unlabored breathing. Clear to auscultation anteriorly. HEART: S1, S2 with regular rate and rhythm. ABDOMEN: Soft, no tenderness. LABS: No new labs have been obtained today. lactic acid has come down to normal. DIAGNOSTIC IMPRESSION AND PLAN: Patient with acute Clostridium difficile colitis, has a second episode last month. Currently on p.o. vancomycin which will be continued along with Questran. Patient advised increase Probiotic and yogurt intake. We will reevaluate the patient tomorrow. NEEMA
[2016-12-26 09:48] LABS: CH 31.6; CHCM 33.2; HCT 33.3 % (34.0-46.0); HDW 2.53; HGB 11.2 gm/dL (11.4-16.0); MCH 32.1 pg (25.0-35.0); MCHC 33.5 g/dL (31.0-37.0); MCV 95.7 fL (80.0-100.0); Mean Platelet Volume 7.3; RBC 3.48 m/uL (3.80-5.40); RDW 13.5 % (11.5-15.5); WBC 4.6 k/uL (3.8-10.6)
[2016-12-26] MEDS: IOHEXOL 350 MG/ML 25 ML BOTTLE (ORAL USE) PO PRN ×2 (10:39→11:38)
[2016-12-26] MEDS: BUTALB/APAP/CAFF 50-325-40MG TAB PO PRN (10:42)
[2016-12-26 10:58] LABS: Anion Gap 9 mmol/L; Blood Urea Nitrogen 3 mg/dL (7-17); Calcium 8.5 mg/dL (8.4-10.2); Carbon Dioxide 26 mmol/L (22-30); Chloride 108 mmol/L (98-107); Glucose 109 mg/dL (74-99); Non-African American GFR(MDRD) >60 (>60 ml/min/1.73 sqM); Potassium 4.2 mmol/L (3.5-5.1); Sodium 143 mmol/L (137-145)
--- NOTE | 2016-12-26 11:13 | PN ---
Patient is admitted for Clostridium difficile colitis. Patient's diarrhea is improving at this point of time. Patient will be continued on oral vancomycin. REVIEW OF SYSTEMS: CARDIOVASCULAR: No chest pain, no orthopnea, no PND, no palpitations. PULMONARY: Denied any shortness of breath. No cough or hemoptysis. GASTROINTESTINAL: As described in history of present illness. NEUROLOGIC: No headaches, no weakness, no numbness. Medications are reviewed. PHYSICAL EXAMINATION: Temperature 97.6, pulse of 88, respirations 16, blood pressure is 100/79, saturating at 96% on room air. GENERAL: The patient is alert and oriented x3, not in any acute distress. Well developed, well nourished. HEENT: Pupils are round and equally reacting to light. EOMI. No scleral icterus. No conjunctival pallor. Normocephalic, atraumatic. No pharyngeal erythema. No thyromegaly. CARDIOVASCULAR: S1 and S2 present. No murmurs, rubs, or gallops. PULMONARY: Chest is clear to auscultation, no wheezing or crackles. ABDOMEN: Soft, nontender, nondistended, normoactive bowel sounds. No palpable organomegaly. MUSCULOSKELETAL: No joint swelling or deformity. EXTREMITIES: No cyanosis, clubbing, or pedal edema. NEUROLOGICAL: Gross neurological examination did not reveal any focal deficits. SKIN: No rashes. LABORATORY DATA: None available from today. ASSESSMENT AND PLAN: 1. Severe Clostridium difficile colitis. Continue vancomycin. 2. Fibromyalgia. 3. Asthma, without any acute exacerbation. 4. Hyperlipidemia. 5. Nicotine abuse. Counseling was provided regarding that. Plan is to continue with present medications. Continue with IV fluids. Awaiting improvement in her diarrhea. Continue with ( ) and probiotics.
--- NOTE | 2016-12-26 12:59 | CT ---
EXAMINATION TYPE: CT abdomen pelvis wo con DATE OF EXAM: 12/26/2016 12:36 PM COMPARISON: 12/04/2016 HISTORY: LLQ pain and diarrhea CT DLP: 785 mGycm Automated exposure control for dose reduction was used. TECHNIQUE: Helical acquisition of images was performed from the lung bases through the pelvis. Exam limited by noncontrast technique particularly for vascular anomalies or intra-abdominal masses. FINDINGS: LIVER/GB: Cholecystectomy changes identified. No space occupying hepatic lesion. Biliary tree is of n ormal caliber. PANCREAS: No inflammation. No distinct mass. SPLEEN: No splenic enlargement. No lesion seen. ADRENALS: No nodule. No thickening. KIDNEYS/BLADDER: No hydronephrosis. There is a 8 mm cortical based calcification the right kidney wit h evidence of cortical loss. No hydronephrosis. 3 mm mid pole left renal calculus seen. No hydronephr osis. Additional punctate 2 mm calculus lower pole right kidney. Nonspecific hypodense lesions are se en within the left kidney. There are multiple hyperdense subcentimeter lesion seen within the left ki dney and a single within the right kidney which may represent tiny hemorrhagic cyst. 2 small to fully characterize. BOWEL: There is thickening of the rectum and sigmoid colon wall. No inflammatory changes. Small bowel is of normal caliber. No evidence for perforation or abscess. Appendectomy changes identified. LYMPH NODES: No greater than 1cm abdominal or pelvic lymph nodes are appreciated. AORTA: No significant abnormality. OSSEOUS STRUCTURES: No significant abnormality is seen. OTHER: Small periumbilical hernia noted. Small follicle or cyst within the right ovary measuring 1.5 cm as well as a calcification. Similar finding noted involving the left ovary. Uterus not seen with amado lo correlate for surgical history. IMPRESSION: 1. There is contiguous wall thickening from the rectum and sigmoid colon without inflammatory pericol onic changes. Correlate for a colitis. Mucosal lesion not excluded. 2. Basilar atelectasis or infiltrate. 3. See above regarding the kidneys with multiple indeterminate lesions and renal calculi but no evide nce of obstruction. Evaluation limited by noncontrast technique. Findings stable from previous exam.
[2016-12-26] MEDS: VERAPAMIL SR 120 MG TABLET.ER PO SCH (21:16)
[2016-12-26] MEDS: ATORVASTATIN 10 MG TAB PO SCH (21:16)
[2016-12-26] MEDS: DULoxetine HCL 60 MG CAPSULE.DR PO SCH (21:16)
[2016-12-27] MEDS: SODIUM CHLORIDE 0.9% 1,000 ML IV SCH ×4 (00:47→22:00)
[2016-12-27] MEDS: VANCOMYCIN ORAL SOLUTION 250 MG/5 ML BOTTLE PO SCH ×2 (06:01→12:25)
[2016-12-27] MEDS: HYDROcodone/APAP 5-325MG 1 EACH TAB PO PRN ×3 (06:02→23:52)
[2016-12-27] MEDS: CHERRY FLAVOR 60 ML BOTTLE PO SCH ×3 (06:02→17:42)
[2016-12-27] MEDS: BALSALAZIDE DISODIUM 750 MG CAPSULE PO SCH ×3 (07:34→21:57)
[2016-12-27] MEDS: GABAPENTIN 300 MG CAP PO SCH ×2 (07:34→21:57)
[2016-12-27] MEDS: SERTRALINE 50 MG TAB PO SCH (07:34)
[2016-12-27] MEDS: BUTALB/APAP/CAFF 50-325-40MG TAB PO PRN ×2 (07:34→19:25)
--- NOTE | 2016-12-27 08:23 | PN ---
Patient is admitted with C. diff colitis and patient's diarrhea, although improving and his stool is ill-defined, patient still has these symptoms, because of which will keep her here today. Possibly can be discharged on oral vancomycin tomorrow. Patient had a CT of the abdomen which did show colitis, sigmoid colitis maybe because of the diverticulitis. Leukocytosis is improving. Her diarrhea is also improving. REVIEW OF SYSTEMS: CARDIOVASCULAR: No chest pain, no orthopnea, no PND, no palpitations. PULMONARY: Denied any shortness of breath. No cough or hemoptysis. GASTROINTESTINAL: As described in HPI. NEUROLOGIC: No headaches, no weakness, no numbness. Medications are reviewed. PHYSICAL EXAMINATION: Temperature 97.6, pulse of 63, respiratory rate of 17, blood pressure is 117/73, saturating at 96% on room air. GENERAL: The patient is alert and oriented x3, not in any acute distress. Well developed, well nourished. HEENT: Pupils are round and equally reacting to light. EOMI. No scleral icterus. No conjunctival pallor. Normocephalic, atraumatic. No pharyngeal erythema. No thyromegaly. CARDIOVASCULAR: S1 and S2 present. No murmurs, rubs, or gallops. PULMONARY: Chest is clear to auscultation, no wheezing or crackles. ABDOMEN: Soft, nontender, nondistended, normoactive bowel sounds. No palpable organomegaly. MUSCULOSKELETAL: No joint swelling or deformity. EXTREMITIES: No cyanosis, clubbing, or pedal edema. NEUROLOGICAL: Gross neurological examination did not reveal any focal deficits. SKIN: No rashes. LABORATORY DATA: CBC, CMP showed improvement in leukocytosis. ASSESSMENT AND PLAN: 1. Severe Clostridium difficile colitis which is improving on oral vancomycin and patient has colitis which is probably due to Clostridium difficile colitis. 2. Fibromyalgia. 3. Asthma without any acute exacerbation. 4. Hyperlipidemia. 5. Nicotine abuse. Plan is to continue with oral vancomycin. Continue with IV fluids at a slower rate. Possibility of discharge tomorrow on oral vancomycin for 14 days.
[2016-12-27] MEDS: CHOLESTYRAMINE (WITH SUGAR) 4 GM PACKET PO SCH ×2 (09:03→17:51)
[2016-12-27 09:11] LABS: Anion Gap 8 mmol/L; Blood Urea Nitrogen 3 mg/dL (7-17); Carbon Dioxide 28 mmol/L (22-30); Chloride 107 mmol/L (98-107); Glucose 100 mg/dL (74-99); Non-African American GFR(MDRD) >60 (>60 ml/min/1.73 sqM); Potassium 3.7 mmol/L (3.5-5.1); Sodium 143 mmol/L (137-145)
[2016-12-27 09:12] LABS: Calcium 8.8 mg/dL (8.4-10.2)
[2016-12-27] MEDS: ONDANSETRON 4 MG/2 ML VIAL IVP PRN (10:22)
--- NOTE | 2016-12-27 12:33 | PN ---
DATE OF SERVICE: 12/26/2016 Reason for follow-up is C. dif colitis. INTERVAL HISTORY: The patient is afebrile. Her diarrhea has decreased. Slightly decreased and forming up slightly formed stools. However, the patient still complaining of pain in her left lower abdominal area. The patient did have some nausea, but no vomiting. Denies having chest pain or shortness of breath or cough. On examination, blood pressure is 126/69 with a pulse of 57, temperature 97.4. She is 96% on room air. GENERAL DESCRIPTION: A middle-age female lying in bed in no distress. RESPIRATORY SYSTEM: Unlabored breathing. Clear to auscultation anteriorly. HEART: S1, S2. Regular rate and rhythm. ABDOMEN: Soft. Minimally tender in the lower quadrant area. EXTREMITIES: No edema of the feet. LABS: Hemoglobin 11.2, white count 4.6 with a BUN of 3, creatinine 0.50. DIAGNOSTIC IMPRESSION AND PLAN: Patient with Clostridium difficile colitis with a recurrent episode of because of her abdominal pain, a CT was ordered which did show inflammatory changes, but no complication of toxic megacolon, the patient does not look toxic either. She will be maintained on p.o. vancomycin and we be at least two more weeks of therapy in addition to the Questran. Continue supportive care. MTDD
[2016-12-27] MEDS: FIDAXOMICIN 200 MG TABLET PO SCH ×2 (15:12→21:57)
[2016-12-27] MEDS: ATORVASTATIN 10 MG TAB PO SCH (21:56)
[2016-12-27] MEDS: DULoxetine HCL 60 MG CAPSULE.DR PO SCH (21:57)
[2016-12-27] MEDS: VERAPAMIL SR 120 MG TABLET.ER PO SCH (21:57)
[2016-12-28] MEDS: HYDROcodone/APAP 5-325MG 1 EACH TAB PO PRN ×3 (07:15→18:57)
[2016-12-28] MEDS: ALBUTEROL NEBULIZED 2.5 MG/3 ML INHALATION PRN (07:44)
[2016-12-28] MEDS: SODIUM CHLORIDE 0.9% 1,000 ML IV SCH ×2 (09:03→15:44)
[2016-12-28] MEDS: SERTRALINE 50 MG TAB PO SCH (09:04)
[2016-12-28] MEDS: GABAPENTIN 300 MG CAP PO SCH ×2 (09:04→20:21)
[2016-12-28] MEDS: FIDAXOMICIN 200 MG TABLET PO SCH ×2 (09:04→20:20)
[2016-12-28] MEDS: CHOLESTYRAMINE (WITH SUGAR) 4 GM PACKET PO SCH ×2 (09:04→16:42)
[2016-12-28] MEDS: BALSALAZIDE DISODIUM 750 MG CAPSULE PO SCH ×3 (09:04→20:21)
--- NOTE | 2016-12-28 10:10 | PN ---
DATE OF SERVICE: 12/27/2016 INTERVAL HISTORY: Ms. Florence is a 51-year-old female who was admitted to the hospital for recurrent C. diff colitis starting from October 2016. Apparently, patient was started on p.o. vancomycin. Otherwise, the patient does have improved diarrhea today. One episode of diarrhea in the morning. Otherwise, denied any complaints of abdominal pain. No nausea or vomiting. No fever or chills. No acute overnight issues. Leukocytosis is improving. REVIEW OF SYSTEMS: CONSTITUTIONAL: No fever. No chills. No weakness. RESPIRATORY: No cough or sputum production. CARDIOVASCULAR: No chest pain or short of breath. ABDOMEN: No nausea, vomiting or abdominal pain. Patient does have diarrhea. ( ): Negative. ENDOCRINE: Negative. MUSCULOSKELETAL: Negative. Current medications include Tylenol, Fioricet, [place], albuterol, Lipitor, baclofen, Colazal, cholestyramine, Cymbalta, fidaxomicin, gabapentin, melatonin, Zofran, Zoloft, normal saline 125 mL/h, verapamil. PHYSICAL EXAM: A 51-year-old female lying in the bed, awake, alert, oriented x3, patient in no apparent distress. VITALS: Blood pressure is 136/81, pulse is a 67, respirations 20, temperature afebrile, pulse ox 97% on room air. HEENT: Atraumatic, normocephalic. Neck is supple, no JVD. CVS EXAM: S1, S2 heard. No murmurs, no gallop. LUNGS: Bilateral air entry is present. No wheezing. No crackles. Nonlabored breathing. Abdomen is soft, nontender. Bowel sounds are present. ST[employer]: Awake, alert and oriented x3. No focal neurologic deficit. Cranial nerves are grossly intact. EXTREMITIES: No edema. Pulses palpable bilaterally. No clubbing or cyanosis. PSYCHIATRIC: Cooperative. LABORATORY DATA: Sodium 143, potassium 3.7, chloride 107, bicarb is 28. BUN 3 and creatinine 0.71, calcium 8.8. IMPRESSION: 1. Acute recurrent Clostridium difficile colitis, currently on fidaxomicin, diarrhea is improving. Patient may need ( ) treatment as per ID recommendations. 2. Fibromyalgia. 3. Asthma without any exacerbation. 4. Hyperlipidemia. 5. Nicotine abuse. DISCUSSION AND PLAN: Patient will be continued on fidaxomicin. Continue with IV fluids. Patient is slightly tolerating p.o. diet and follow up closely. Further information based on the clinical course and ID final recommendations.
--- NOTE | 2016-12-28 10:41 | PN ---
DATE OF SERVICE: 12/27/2016 Reason for followup is C. diff colitis. INTERVAL HISTORY: The patient is afebrile. The patient continues to have diarrhea with every hour on the hour, still loose, has not formed up. The abdominal has lessened up. No nausea, no vomiting. On examination, blood pressure is 126/71 with a pulse of 57, temperature 98.0, she is 96% on room air. General description is a middle-age female, lying in bed in no distress. RESPIRATORY SYSTEM: Unlabored breathing, clear to auscultation. HEART: S1, S2, regular rate and rhythm. ABDOMEN: Soft. No tenderness. LABS: Hemoglobin is 11.2, white count of 4.6 with a BUN of 3 creatinine 0.71. DIAGNOSTIC IMPRESSION AND PLAN: Patient with Clostridium difficile colitis with not very good response to the p.o. vancomycin. At this time antibiotic will be switched over to Dificid 200 mg p.o. twice a day. Continue with the [facility] and will re-evaluate the patient tomorrow.
[2016-12-28] MEDS: BUTALB/APAP/CAFF 50-325-40MG TAB PO PRN (13:30)
[2016-12-28 15:28] VITALS: RESP 16
--- NOTE | 2016-12-28 17:14 | PN ---
DATE OF SERVICE: 12/28/2016 Reason for follow-up: C. difficile colitis. INTERVAL HISTORY: The patient is afebrile. She is feeling better compared to yesterday after she was started on Dificid and has had only one bowel movement slightly formed this morning. Patient abdominal pain has improved. Patient denies any nausea, vomiting, denies having any chest pain, shortness of breath or cough. On examination, blood pressure 118/70 with a pulse of 75, temperature 97.4. She is 97% on room air. General description is a middle-age female lying in bed in no distress. RESPIRATORY SYSTEM: Unlabored breathing. Clear to auscultation anteriorly. HEART: S1, S2 regular rate and rhythm. Abdomen soft, no tenderness. LABS: Hemoglobin 11.4, white count 4.6. BUN of 30, creatinine 0.71. DIAGNOSTIC IMPRESSION AND PLAN: Patient with Clostridium difficile colitis and did have a recurrence after she was treated with oral Flagyl and did not respond very well to the p.o. Vanco for the last few days. She did well on p.o. Dificid, hence we will recommend getting the Dificid 200 daily for another 9 days to finish a course of therapy. Scripts have been written for the patient, once antibiotics arranged, she should be able to go home from ID standpoint with outpatient follow-up.
[2016-12-28] MEDS: ATORVASTATIN 10 MG TAB PO SCH (20:20)
[2016-12-28] MEDS: DULoxetine HCL 60 MG CAPSULE.DR PO SCH (20:20)
[2016-12-28] MEDS: VERAPAMIL SR 120 MG TABLET.ER PO SCH (20:21)
[2016-12-28 23:24] VITALS: TEMP 97.4
[2016-12-29] MEDS ORDERED: ONDANSETRON 4 MG TAB PO PRN
[2016-12-29 07:44] VITALS: BP 122/72; PULSE 70
[2016-12-29] MEDS: SERTRALINE 50 MG TAB PO SCH (09:25)
[2016-12-29] MEDS: HYDROcodone/APAP 5-325MG 1 EACH TAB PO PRN (09:25)
[2016-12-29] MEDS: FIDAXOMICIN 200 MG TABLET PO SCH (09:25)
[2016-12-29] MEDS: CHOLESTYRAMINE (WITH SUGAR) 4 GM PACKET PO SCH (09:26)
[2016-12-29] MEDS: GABAPENTIN 300 MG CAP PO SCH (09:26)
[2016-12-29] MEDS: BALSALAZIDE DISODIUM 750 MG CAPSULE PO SCH (09:26)
--- NOTE | 2016-12-29 11:07 | PN ---
DATE OF SERVICE: 12/29/2016 Reason for follow-up is C. dif colitis. INTERVAL HISTORY: The patient is afebrile. Her diarrhea has improved. She had about three episodes of semi-formed stool in the last 24 hours. Her abdominal pain has improved. The patient denies any nausea or vomiting. She is currently waiting for insurance approval for the Dificid before discharge. On examination, blood pressure is 122/72 with a pulse of 70, temperature 97.4. She is 97% on room air. General description is a middle-age female lying in bed in no distress. RESPIRATORY SYSTEM: Unlabored breathing. Clear to auscultation anteriorly. HEART: S1, S2. Regular rate and rhythm. ABDOMEN: Soft, no tenderness. EXTREMITIES: No edema of feet. LABS: No new labs have been obtained today. DIAGNOSTIC IMPRESSION AND PLAN: Patient with Clostridium difficile colitis this being her second episode. She has recurrence with Flagyl and did not respond very well to p.o. Vanco. However, was doing good on the p.o. Dificid. At this point we are waiting for insurance approval for Dificid for another 8 days to finish a total of 10 day course of therapy. The patient advised to increase probiotic and yogurt intake and follow up in the office in about a week's time.
--- NOTE | 2016-12-30 11:45 | PN ---
DATE OF SERVICE: 12/28/2016 INTERVAL HISTORY: Ms. Florence is a 51 -year-old male admitted to the hospital for diarrhea and recurrent C. dif infection since October 2016. The patient was initially started on p.o. Vancomycin. The patient was still having diarrhea and antibiotic has been changed to Dificid which controlled her diarrhea. Otherwise, the patient is awaiting for prior authorization for antibiotics. Otherwise, the patient does have formed stool today. No nausea, vomiting, tolerating p.o. diet. Complete review of systems negative except as above. No complaints of chest pain or short of breath. CURRENT MEDICATIONS: Reviewed. PHYSICAL EXAMINATION: A 51-year-old female, lying in bed comfortably, awake, alert, oriented, x3. Appears to be in no apparent distress. VITALS: Blood pressure is 123/71, pulse is 66, respirations 16, temperature afebrile, pulse ox 96% on room air. Laboratory data reviewed. Discharge physical examination done. Laboratory data reviewed. IMPRESSION: 1. Acute recurrent Clostridium difficile colitis, currently on ( ) diarrhea improved now. Infectious disease is following. 2. Fibromyalgia. 3. Asthma, without any acute exacerbation. 4. Hyperlipidemia. 5. Leukocytosis history. DISCUSSION AND PLAN: Patient will be continued on ( ). Continue with ( ) the patient is tolerating a p.o. diet. We will hold IV fluids and continue to follow closely. Awaiting for antibiotic approval. Anticipate discharge tomorrow with more clinical improvement ( ).
--- NOTE | 2016-12-30 22:07 | DS ---
DATE OF ADMISSION: 12/24/2016 DATE OF DISCHARGE: 12/29/2016 DISCHARGE DIAGNOSES: 1. Acute recurrent Clostridium difficile colitis. Diarrhea improved with fidaxomicin. Continue with the fidaxomicin for a total of 10 days as per ID recommendations. 2. Fibromyalgia. 3. Nicotine abuse. 4. Asthma without exacerbation. 5. Hyperlipidemia. HOSPITAL COURSE: Ms. Florence is a 51-year-old female with known history of C difficile colitis, first in October 2016. She came to the hospital with worsening diarrhea and abdominal pain. Patient was found to have C difficile toxin positive. Patient was initially started on vancomycin, but patient was still having diarrhea. Her antibiotics were changed to fidaxomicin as per ID recommendations. Patient did improve clinically and diarrhea has improved now. Patient was sent for prior authorization for antibiotic fidaxomicin, which has been approved, and patient is being discharged home to complete the remaining course of antibiotics for a total of 10 days with fidaxomicin. Otherwise, patient is stable to be discharged. DISCHARGE PHYSICAL EXAMINATION: [id number]-old female lying in bed. Awake, alert and oriented x3. No apparent distress. VITALS: Blood pressure is 128/72. Pulse is 70, respiration 16, temperature afebrile, pulse ox 97% on room air. LABORATORY DATA: Reviewed. Discharge physical examination done. Discharge medications include: 1. Albuterol inhaler 2 puffs q.6 hourly p.r.n. for shortness of breath. 2. Baclofen 10 mg p.o. t.i.d. 3. Fioricet 1 tablet p.o. b.i.d. p.r.n. 4. Vitamin D3 2000 units p.o. daily. 5. Gabapentin 600 mg p.o. b.i.d. 6. Osteo Bi-Flex 1 tablet p.o. daily. 7. Mesalamine 800 mg p.o. t.i.d. 8. Ondansetron 8 mg p.o. q.8 hourly p.r.n. 9. Simvastatin 20 mg p.o. at bedtime. 10. Verapamil 120 mg p.o. at bedtime. 11. Sertraline 50 mg p.o. daily. 12. Black cohosh root 200 mg p.o. daily. 13. Cymbalta 60 mg p.o. at bedtime. 14. Bertha 5 q.6 hourly p.r.n. for pain. 15. Zyrtec-D one tablet p.o. q.12 hours p.r.n. for allergies. 16. Melatonin 5 mg p.o. at bedtime p.r.n. for sleep. 17. Naprosyn 500 mg p.o. q.12 hourly p.r.n. 18. Fidaxomicin 200 mg p.o. b.i.d. for 9 more days. Activity as tolerated. Heart-healthy diet. Follow with primary physician, Dr. Holly Jaffe. Follow up with Dr. Kimble.
== END 2016-12-29 14:40 | disposition home or self-care (01) | DRG 372 ==
LOC: EC 10:23 → 4MS4W 13:54
PROVIDERS: ADMIT Hospitalist; ATTEND Hospitalist
DX: A04.7 Enterocolitis due to Clostridium difficile (principal); E87.2 Acidosis; K51.90 Ulcerative colitis, unspecified, without complications; E78.5 Hyperlipidemia, unspecified; E86.0 Dehydration; F12.90 Cannabis use, unspecified, uncomplicated; F17.200 Nicotine dependence, unspecified, uncomplicated; G43.909 Migraine, unspecified, not intractable, without status migrainosus; J44.9 Chronic obstructive pulmonary disease, unspecified; J45.909 Unspecified asthma, uncomplicated; M79.7 Fibromyalgia; F32.9 Major depressive disorder, single episode, unspecified; F41.9 Anxiety disorder, unspecified; M19.90 Unspecified osteoarthritis, unspecified site; M54.2 Cervicalgia; Z79.899 Other long term (current) drug therapy
CPT/HCPCS: 36415; 74176; 80048; 80053; 81003; 82550; 82553; 83605; 83735; 84100; 84484; 85025; 85027; 85610; 85730; 87040; 87086; 87324; 94640

== ENCOUNTER 2017-04-10 13:45 | Emergency (ER) | payer OTHER ==
[2017-04-10] MEDS ORDERED: SODIUM CHLORIDE 0.9% 1,000 ML IV ONE (14:10)
--- NOTE | 2017-04-10 14:14 | ED ---
Nausea/Vomiting/Diarrhea HPI - General Chief complaint: Nausea/Vomiting/Diarrhea Stated complaint: Diarrhea Time Seen by Provider: 04/10/17 13:54 Source: patient Mode of arrival: ambulatory Limitations: no limitations - History of Present Illness Initial comments: This is a 51-year-old female to history of ulcerative colitis and C. diff colitis who presents emergency department for diarrhea, abdominal pain, nausea. She states the symptoms been going on for the last 2 months. She states that she had shock wave lithotripsy performed and was placed on Keflex and that is when the diarrhea started. This was at the beginning of February 2017. She states that she has had consistent diarrhea since then however it seemed to worsen over the last couple of days. She has some abdominal cramping and left-sided abdominal pain. She also has some associated nausea. She has been checked for C. diff twice by Dr. Gtz with infectious disease which has been negative. She came in today because of the worsening symptoms. She follows with Dr. Morris with GI out of [place]. She denies any other complaints. - Related Data Home Medications Medication Instructions Recorded Confirmed Albuterol Inhaler [Ventolin Hfa 1 - 2 puff INHALATION RT-Q6H PRN 02/10/16 Inhaler] Baclofen [Lioresal] 10 mg PO TID PRN 02/10/16 04/10/17 Butalb/APAP/Caff 50-325-40Mg 1 tab PO BID PRN 02/10/16 04/10/17 [Fioricet 50-325-40] Cholecalciferol [Vitamin D3] 2,000 unit PO DAILY 02/10/16 04/10/17 Gabapentin [Neurontin] 600 mg PO BID 02/10/16 04/10/17 Ondansetron [Zofran ODT] 8 mg PO Q8HR PRN 02/10/16 04/10/17 Simvastatin [Zocor] 20 mg PO HS 02/10/16 04/10/17 Sertraline [Zoloft] 50 mg PO DAILY 11/15/16 04/10/17 Black Cohosh Root [Black Cohosh] 200 mg PO DAILY 12/04/16 04/10/17 DULoxetine HCL [Cymbalta] 60 mg PO HS 12/04/16 04/10/17 HYDROcodone/APAP 5-325MG [[place] 1 tab PO Q6H PRN 12/04/16 04/10/17 5-325] Cetirizine HCl/Pseudoephedrine 1 tab PO DAILY PRN 12/24/16 04/10/17 [Zyrtec-D Tablet] Melatonin 5 mg PO HS PRN 12/24/16 04/10/17 Dicyclomine [Bentyl] 10 mg PO TID 04/10/17 04/10/17 Hyoscyamine Sulfate [Hyoscyamine 0.125 mg SL Q6H PRN 04/10/17 04/10/17 Sulfate SL] Mesalamine Ec 400mg 400 mg PO TID 04/10/17 04/10/17 Verapamil HCl [Verapamil ER] 180 mg PO DAILY 04/10/17 04/10/17 Previous Rx's Medication Instructions Recorded Diphenox-Atrop 2.5-0.025 mg 1 tab PO QID PRN #30 tablet 04/10/17 [Lomotil] Allergies Allergy/AdvReac Type Severity Reaction Status Date / Time venom-honey bee Allergy Severe Anaphylaxis Verified 04/10/17 14:43 [bee venom (honey bee)] coconut oil Allergy Unknown Rash/Hives Verified 04/10/17 14:43 hops Allergy Unknown Verified 04/10/17 14:43 Review of Systems ROS Statement: Those systems with pertinent positive or pertinent negative responses have been documented in the HPI. ROS Other: All systems not noted in ROS Statement are negative. 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 , STATES SHE IS HAVING ALOT OF NECK PAIN AND SOME S.O.B. History of Any Multi-Drug Resistant Organisms: C-DIFF Date of last positivie culture/infection: 12/24/16 MDRO Source:: stool Past Surgical History: Appendectomy, Cholecystectomy, Hysterectomy, Orthopedic Surgery, Tubal Ligation, Uterine Ablation Additional Past Surgical History / Comment(s): carpel tunnel to left, ganglion cyst, SYED FUNDOPLASTY. Past Anesthesia/Blood Transfusion Reactions: No Reported Reaction Past Psychological History: Anxiety, Depression Smoking Status: Light tobacco smoker Past Alcohol Use History: Rare Past Drug Use History: Marijuana - Past Family History Mother Family Medical History: No Reported History General Exam - General Exam Comments Initial Comments: Constitutional: Awake alert Appears comfortable Head: Normocephalic atraumatic Eyes: no conjunctival injection No scleral icterus EOMI Neck: No JVD Supple Heart: Regular rate rhythm normal S1-S2 no murmurs Lungs: Clear to auscultation bilaterally No wheezing No rales Abdomen: Soft nondistended tenderness to palpation in the left upper and left lower quadrant without rebound or guarding Extremities: Non edematous DP pulses intact Radial pulses intact Neuro: A&Ox3 No focal neurologic deficits Psych: Appropriate mood and affect Limitations: no limitations Course Vital Signs 04/10/17 13:50 Temperature 99 F Pulse Rate 81 Respiratory 20 Rate Blood Pressure 108/66 O2 Sat by Pulse 97 Oximetry Medical Decision Making - Medical Decision Making This is a 51-year-old female to history of C. diff colitis and ulcerative colitis who presents emergency department for diarrhea for 2 months. Patient had lab work performed which is significant for mild leukocytosis otherwise unremarkable. Computed tomography scan did not show any evidence for colitis. C. diff toxin was negative. I spoke with Dr. Kimble about the patient who recommended Lomotil or Imodium. He also recommended close follow-up with GI specialist. He does not feel that this is infectious in etiology. Patient was updated on this and agrees. Can return if has worsening or changing symptoms. - Lab Data Result diagrams: 04/10/17 14:22 04/10/17 14:22 Lab Results 04/10/17 04/10/17 04/10/17 Range/Units 14:22 14:22 14:40 WBC 14.7 H (3.8-10.6) k/uL RBC 4.18 (3.80-5.40) m/uL Hgb 13.4 (11.4-16.0) gm/dL Hct 38.8 (34.0-46.0) % MCV 92.9 (80.0-100.0) fL MCH 32.2 (25.0-35.0) pg MCHC 34.7 (31.0-37.0) g/dL RDW 14.0 (11.5-15.5) % Plt Count 293 (150-450) k/uL Neutrophils % 79 % Lymphocytes % 13 % Monocytes % 6 % Eosinophils % 1 % Basophils % 1 % Neutrophils # 11.6 H (1.3-7.7) k/uL Lymphocytes # 1.9 (1.0-4.8) k/uL Monocytes # 0.9 (0-1.0) k/uL Eosinophils # 0.2 (0-0.7) k/uL Basophils # 0.1 (0-0.2) k/uL Sodium 140 (137-145) mmol/L Potassium 4.6 (3.5-5.1) mmol/L Chloride 107 (98-107) mmol/L Carbon Dioxide 24 (22-30) mmol/L Anion Gap 9 mmol/L BUN 27 H (7-17) mg/dL Creatinine 0.61 (0.52-1.04) mg/dL Est GFR (MDRD) Af Amer >60 (>60 ml/min/1.73 sqM) Est GFR (MDRD) Non-Af >60 (>60 ml/min/1.73 sqM) Glucose 80 (74-99) mg/dL Calcium 9.3 (8.4-10.2) mg/dL Total Bilirubin 0.6 (0.2-1.3) mg/dL AST 26 (14-36) U/L ALT 11 (9-52) U/L Alkaline Phosphatase 63 (38-126) U/L Total Protein 6.9 (6.3-8.2) g/dL Albumin 4.1 (3.5-5.0) g/dL Amylase 31 (30-110) U/L Lipase 74 (23-300) U/L Urine Color Urine Appearance (Clear) Urine pH (5.0-8.0) Ur Specific [place] (1.001-1.035) Urine Protein (Negative) Urine Glucose (UA) (Negative) Urine Ketones (Negative) Urine Blood (Negative) Urine Nitrite (Negative) Urine Bilirubin (Negative) Urine Urobilinogen (<2.0) mg/dL Ur Leukocyte Esterase (Negative) C. difficile (EIA) Intrp Negative (Negative) 04/10/17 Range/Units 15:40 WBC (3.8-10.6) k/uL RBC (3.80-5.40) m/uL Hgb (11.4-16.0) gm/dL Hct (34.0-46.0) % MCV (80.0-100.0) fL MCH (25.0-35.0) pg MCHC (31.0-37.0) g/dL RDW (11.5-15.5) % Plt Count (150-450) k/uL Neutrophils % % Lymphocytes % % Monocytes % % Eosinophils % % Basophils % % Neutrophils # (1.3-7.7) k/uL Lymphocytes # (1.0-4.8) k/uL Monocytes # (0-1.0) k/uL Eosinophils # (0-0.7) k/uL Basophils # (0-0.2) k/uL Sodium (137-145) mmol/L Potassium (3.5-5.1) mmol/L Chloride (98-107) mmol/L Carbon Dioxide (22-30) mmol/L Anion Gap mmol/L BUN (7-17) mg/dL Creatinine (0.52-1.04) mg/dL Est GFR (MDRD) Af Amer (>60 ml/min/1.73 sqM) Est GFR (MDRD) Non-Af (>60 ml/min/1.73 sqM) Glucose (74-99) mg/dL Calcium (8.4-10.2) mg/dL Total Bilirubin (0.2-1.3) mg/dL AST (14-36) U/L ALT (9-52) U/L Alkaline Phosphatase (38-126) U/L Total Protein (6.3-8.2) g/dL Albumin (3.5-5.0) g/dL Amylase (30-110) U/L Lipase (23-300) U/L Urine Color Yellow Urine Appearance Clear (Clear) Urine pH 5.5 (5.0-8.0) Ur Specific [place] 1.023 (1.001-1.035) Urine Protein Negative (Negative) Urine Glucose (UA) Negative (Negative) Urine Ketones Negative (Negative) Urine Blood Negative (Negative) Urine Nitrite Negative (Negative) Urine Bilirubin Negative (Negative) Urine Urobilinogen <2.0 (<2.0) mg/dL Ur Leukocyte Esterase Negative (Negative) C. difficile (EIA) Intrp (Negative) Disposition Clinical Impression: Diarrhea Disposition: HOME SELF-CARE Condition: Stable Instructions: Chronic Diarrhea (ED) Prescriptions: Diphenox-Atrop 2.5-0.025 mg [Lomotil] 1 tab PO QID PRN #30 tablet PRN Reason: Diarrhea Referrals: Holly Jaffe DO [Primary Care Provider] - 1-2 days April Anne MD [STAFF PHYSICIAN] - 1-2 days
[2017-04-10 14:58] LABS: Basophils # (A) 0.1 k/uL (0-0.2); Basophils % (A) 1 %; CH 32.3; CHCM 34.9; Eosinophils # (A) 0.2 k/uL (0-0.7); Eosinophils % (A) 1 %; HCT 38.8 % (34.0-46.0); HDW 2.26; HGB 13.4 gm/dL (11.4-16.0); Luc # (Auto) 0.17; Luc % (Auto) 1; Lymphocytes # (A) 1.9 k/uL (1.0-4.8); Lymphocytes % (A) 13 %; MCH 32.2 pg (25.0-35.0); MCHC 34.7 g/dL (31.0-37.0); MCV 92.9 fL (80.0-100.0); Mean Platelet Volume 7.9; Monocytes # (A) 0.9 k/uL (0-1.0); Monocytes % (A) 6 %; Neutrophils # (A) 11.6 k/uL (1.3-7.7); Neutrophils % (A) 79 %; RBC 4.18 m/uL (3.80-5.40); WBC 14.7 k/uL (3.8-10.6); WBC (Perox) 13.67
[2017-04-10 15:03] LABS: ALT 11 U/L (9-52); AST 26 U/L (14-36); Alkaline Phosphatase 63 U/L (38-126); Amylase 31 U/L (30-110); Anion Gap 9 mmol/L; Blood Urea Nitrogen 27 mg/dL (7-17); Calcium 9.3 mg/dL (8.4-10.2); Carbon Dioxide 24 mmol/L (22-30); Chloride 107 mmol/L (98-107); Glucose 80 mg/dL (74-99); Non-African American GFR(MDRD) >60 (>60 ml/min/1.73 sqM); Sodium 140 mmol/L (137-145); Total Bilirubin 0.6 mg/dL (0.2-1.3); Total Protein 6.9 g/dL (6.3-8.2)
[2017-04-10 15:05] LABS: Potassium 4.6 mmol/L (3.5-5.1)
--- NOTE | 2017-04-10 15:10 | CT ---
EXAMINATION TYPE: CT abdomen pelvis wo con DATE OF EXAM: 04/10/2017 COMPARISON: 12/26/2016 INDICATION: Pt states of diarrhea and left side abdominal pain. DLP: 258.7 mGycm, Automated exposure control for dose reduction was used. CONTRAST: 0 mL of Omnipaque 300. Study performed without Oral Contrast TECHNIQUE: Axial images were obtained from above the diaphragm to the pubic rami in the axial plane a t 5 mm thick sections. Reconstructed images are reviewed on the computer in the coronal plane. FINDINGS: Limited CT sections are obtained the lung bases. The lung bases are clear. CT ABDOMEN: Liver: Normal Spleen: Normal Pancreas: Normal Adrenal glands: The adrenal glands are normal. Gallbladder: Normal Kidneys: There is a 2.8 cm rounded density in the superior medial left kidney. This could be a comple x cyst or underlying mass. Follow-up is recommended. There is a 2.3 cm cyst along the superior media l more anterior portion of the left kidney. A left kidney stone measuring 0.65 cm is present within t he midportion without evidence of obstruction. Subtle hypodensity may be at the inferior pole left ki dney measuring 1.8 cm may be a cyst or mass. A 1.6 similar cyst on the anterior inferior pole left ki dney. There are several calcifications without obstruction in the right kidney including a 0.3 cm kimberly cification at the inferior pole, a punctate 0.2 cm mid renal calcification. A coarse cortical renal c alcification measuring 0.6 cm a couple of additional punctate cortical medullary junction calcificati ons. Renal findings appear stable from December 2016.. No hydronephrosis is present. Aorta: Normal Inferior vena cava: Normal. CT PELVIS: Loops of bowel within the abdomen and pelvis are normal. Study is without contrast limiting the e valuation. Appendix: Surgically absent Urinary bladder: Decompressed and not evaluated. Genitourinary structures: There is a 2.5 cm right ovarian cyst present. Osseous structures: No suspicious lytic or sclerotic lesions. IMPRESSIONS: 1. 2.5 cm right ovarian cyst. 2. Multiple stable low density structures in cysts within the bilateral kidneys. 3. Nonobstructing renal stones
[2017-04-10 15:55] LABS: Appearance,Urine Clear (Clear); Bilirubin,Urine Negative (Negative); Glucose,Urine (UA) Negative (Negative); Ketones,Urine Negative (Negative); Leukocyte Esterase,Urine Negative (Negative); Nitrite,Urine Negative (Negative); PH, Urine 5.5 (5.0-8.0); Protein,Urine Negative (Negative); Specific Gravity,Urine 1.023 (1.001-1.035); UA Billing (MACRO vs. MICRO) CHEM; Urobilinogen,Urine <2.0 mg/dL (<2.0)
[2017-04-10 16:35] VITALS: BP 108/61; PULSE 65; RESP 18; TEMP 98.3
== END 2017-04-10 16:35 | disposition home or self-care (01) ==
LOC: EC 13:45
DX: R19.7 Diarrhea, unspecified (principal); R10.12 Left upper quadrant pain; R10.32 Left lower quadrant pain; F32.9 Major depressive disorder, single episode, unspecified; M79.7 Fibromyalgia; F17.200 Nicotine dependence, unspecified, uncomplicated; Z90.49 Acquired absence of other specified parts of digestive tract; Z91.030 Bee allergy status; Z91.09 Other allergy status, other than to drugs and biological substances; Z79.899 Other long term (current) drug therapy
CPT/HCPCS: 36415; 74176; 80053; 81003; 82150; 83690; 85025; 87045; 87046; 87324; 89055; 96360; 99284

== ENCOUNTER → 2017-04-14 | Outpatient (CLI) | payer OTHER ==
[2017-04-14 17:38] LABS: CH 31.8; CHCM 33.9; HCT 37.7 % (34.0-46.0); HDW 2.45; HGB 13.2 gm/dL (11.4-16.0); MCH 33.1 pg (25.0-35.0); MCHC 35.1 g/dL (31.0-37.0); MCV 94.3 fL (80.0-100.0); Mean Platelet Volume 7.5; RDW 13.4 % (11.5-15.5); WBC 11.9 k/uL (3.8-10.6)
[2017-04-14 18:34] LABS: Erythrocyte Sedimentation Rate 36 mm/hr (0-20)
[2017-04-15 00:55] LABS: Gliadin AB IgA, Deaminated NEGATIVE (NEGATIVE); Gliadin AB IgG, Deaminated NEGATIVE (NEGATIVE); Gliadin AB IgG, Unit <0.4 U/mL; Tis Transglutaminase IgA Unit <0.5 AI; Tis Transglutaminase IgG Unit <0.8 U/mL
== END ==
LOC: LABWHC1 17:06
PROVIDERS: ATTEND Internal Medicine Gastroenterology
DX: K51.90 Ulcerative colitis, unspecified, without complications (principal)
CPT/HCPCS: 36415; 83516; 85027; 85652; 86140

== ENCOUNTER 2017-05-01 14:38 | Emergency (ER) | payer OTHER ==
[2017-05-01 14:50] VITALS: TEMP 98.7
[2017-05-01] MEDS ORDERED: SODIUM CHLORIDE 0.9% 1,000 ML IV STA (15:19)
--- NOTE | 2017-05-01 15:29 | ED ---
GI Bleed HPI - General Chief complaint: GI Bleed Stated complaint: rectal bleeding Time Seen by Provider: 05/01/17 15:06 Source: patient, RN notes reviewed Mode of arrival: ambulatory Limitations: no limitations - History of Present Illness Initial comments: 51-year-old female presents emergency Department chief complaint abdominal discomfort, rectal bleeding. Patient states that she yesterday where she had a bowel movement and had some rectal discomfort and bleeding. Patient states she had another one today when she went to the bathroom she noticed blood in her underwear. Patient states that she had this prior to her bowel movement. Patient states she has a history of hemorrhoids. Patient also has a history of ulcerative colitis though she's been having chronic diarrhea over the last 7 months. Patient states that she has seen her GI physician several times and they have narrowed it down to chronic diarrhea. Patient has had several stool studies colonoscopy with no acute findings. They state that is not hurts ulcerative colitis that she has no active areas. Patient denies any dysuria hematuria denies any nausea vomiting. Patient denies any chest pain, shortness breath, fatigue. - Related Data Home Medications Medication Instructions Recorded Confirmed Albuterol Inhaler [Ventolin Hfa 1 puff INHALATION RT-Q6H PRN 02/10/16 05/01/17 Inhaler] Baclofen [Lioresal] 10 mg PO TID PRN 02/10/16 05/01/17 Butalb/APAP/Caff 50-325-40Mg 1 tab PO BID PRN 02/10/16 05/01/17 [Fioricet 50-325-40] Cholecalciferol [Vitamin D3] 2,000 unit PO DAILY 02/10/16 05/01/17 Gabapentin [Neurontin] 600 mg PO BID 02/10/16 05/01/17 Ondansetron [Zofran ODT] 8 mg PO Q8HR PRN 02/10/16 05/01/17 Simvastatin [Zocor] 20 mg PO HS 02/10/16 05/01/17 Black Cohosh Root [Black Cohosh] 200 mg PO DAILY 12/04/16 05/01/17 DULoxetine HCL [Cymbalta] 60 mg PO HS 12/04/16 05/01/17 HYDROcodone/APAP 5-325MG [[place] 1 tab PO Q6H PRN 12/04/16 05/01/17 5-325] Cetirizine HCl/Pseudoephedrine 1 tab PO DAILY PRN 12/24/16 05/01/17 [Zyrtec-D Tablet] Melatonin 5 mg PO HS PRN 12/24/16 05/01/17 Dicyclomine [Bentyl] 10 mg PO TID 04/10/17 05/01/17 Hyoscyamine Sulfate [Hyoscyamine 0.125 mg SL Q6H PRN 04/10/17 05/01/17 Sulfate SL] Mesalamine Ec 400mg 400 mg PO TID 04/10/17 05/01/17 Verapamil HCl [Verapamil ER] 180 mg PO DAILY 04/10/17 05/01/17 Sertraline [Zoloft] 100 mg PO DAILY 05/01/17 05/01/17 Tamsulosin [Flomax] 0.4 mg PO DAILY 05/01/17 05/01/17 Previous Rx's Medication Instructions Recorded Lidocaine 2% Gel [Xylocaine Jelly 1 applic TOPICAL QID #15 gm 05/01/17 2%] Allergies Allergy/AdvReac Type Severity Reaction Status Date / Time venom-honey bee Allergy Severe Anaphylaxis Verified 05/01/17 14:50 [bee venom (honey bee)] coconut oil Allergy Unknown Rash/Hives Verified 05/01/17 14:50 hops Allergy Unknown Verified 05/01/17 14:50 Review of Systems ROS Statement: Those systems with pertinent positive or pertinent negative responses have been documented in the HPI. ROS Other: All systems not noted in ROS Statement are negative. 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 , STATES SHE IS HAVING ALOT OF NECK PAIN AND SOME S.O.B. History of Any Multi-Drug Resistant Organisms: C-DIFF Date of last positivie culture/infection: 12/24/16 MDRO Source:: stool Past Surgical History: Appendectomy, Cholecystectomy, Hysterectomy, Orthopedic Surgery, Tubal Ligation, Uterine Ablation Additional Past Surgical History / Comment(s): carpel tunnel to left, ganglion cyst, SYED FUNDOPLASTY. Past Anesthesia/Blood Transfusion Reactions: No Reported Reaction Past Psychological History: Anxiety, Depression Smoking Status: Light tobacco smoker Past Alcohol Use History: Rare Past Drug Use History: Marijuana - Past Family History Mother Family Medical History: No Reported History General Exam Limitations: no limitations General appearance: alert, in no apparent distress Respiratory exam: Present: normal lung sounds bilaterally. Absent: respiratory distress, wheezes, rales, rhonchi, stridor Cardiovascular Exam: Present: regular rate, normal rhythm, normal heart sounds. Absent: systolic murmur, diastolic murmur, rubs, gallop, clicks GI/Abdominal exam: Present: soft, tenderness (Mild diffuse), normal bowel sounds. Absent: distended, guarding, rebound, rigid Rectal exam: Present: hemorrhoids (Bleeding), other (Exam performed with Nancie RN) Back exam: Absent: CVA tenderness (R), CVA tenderness (L) Skin exam: Present: warm, dry, intact, normal color. Absent: rash Course Vital Signs 05/01/17 14:47 Temperature 98.7 F Pulse Rate 103 H Respiratory 18 Rate Blood Pressure 114/71 O2 Sat by Pulse 97 Oximetry Medical Decision Making - Medical Decision Making 51-year-old female presented for rectal bleeding. Patient's weight is primarily related to her hemorrhoid. Patient will be given medication for this. Patient also has some evidence of colitis on CT consistent with her ulcerative colitis. She will follow up with GI return parameters were discussed. - Lab Data Result diagrams: 05/01/17 15:27 05/01/17 15:27 Lab Results 05/01/17 05/01/17 05/01/17 Range/Units 15:27 15:27 15:27 WBC 17.4 H (3.8-10.6) k/uL RBC 3.93 (3.80-5.40) m/uL Hgb 12.9 (11.4-16.0) gm/dL Hct 37.6 (34.0-46.0) % MCV 95.8 (80.0-100.0) fL MCH 32.8 (25.0-35.0) pg MCHC 34.2 (31.0-37.0) g/dL RDW 13.8 (11.5-15.5) % Plt Count 365 (150-450) k/uL Neutrophils % 78 % Lymphocytes % 14 % Monocytes % 6 % Eosinophils % 1 % Basophils % 0 % Neutrophils # 13.6 H (1.3-7.7) k/uL Lymphocytes # 2.4 (1.0-4.8) k/uL Monocytes # 1.1 H (0-1.0) k/uL Eosinophils # 0.1 (0-0.7) k/uL Basophils # 0.0 (0-0.2) k/uL APTT 20.7 L (22.0-30.0) sec Sodium 140 (137-145) mmol/L Potassium 3.8 (3.5-5.1) mmol/L Chloride 104 (98-107) mmol/L Carbon Dioxide 28 (22-30) mmol/L Anion Gap 8 mmol/L BUN 17 (7-17) mg/dL Creatinine 0.66 (0.52-1.04) mg/dL Est GFR (MDRD) Af Amer >60 (>60 ml/min/1.73 sqM) Est GFR (MDRD) Non-Af >60 (>60 ml/min/1.73 sqM) Glucose 87 (74-99) mg/dL Calcium 9.1 (8.4-10.2) mg/dL Total Bilirubin 0.3 (0.2-1.3) mg/dL AST 13 L (14-36) U/L ALT 26 (9-52) U/L Alkaline Phosphatase 66 (38-126) U/L Total Protein 5.9 L (6.3-8.2) g/dL Albumin 3.6 (3.5-5.0) g/dL Lipase 86 (23-300) U/L Disposition Clinical Impression: Colitis, Bleeding external hemorrhoids Disposition: HOME SELF-CARE Condition: Stable Instructions: Hemorrhoids (ED) Additional Instructions: Please return to the Emergency Department if symptoms worsen or any other concerns. Prescriptions: Lidocaine 2% Gel [Xylocaine Jelly 2%] 1 applic TOPICAL QID #15 gm Referrals: Holly Jaffe DO [Primary Care Provider] - 1-2 days Time of Disposition: 17:18
[2017-05-01] MEDS ORDERED: LIDOCAINE VISCOUS 2% 15 ML CUP TOPICAL ONE (15:33)
[2017-05-01 15:39] LABS: Basophils % (A) 0 %; CH 31.8; CHCM 33.3; Eosinophils # (A) 0.1 k/uL (0-0.7); Eosinophils % (A) 1 %; HCT 37.6 % (34.0-46.0); HDW 2.24; HGB 12.9 gm/dL (11.4-16.0); Luc # (Auto) 0.18; Luc % (Auto) 1; Lymphocytes # (A) 2.4 k/uL (1.0-4.8); Lymphocytes % (A) 14 %; MCH 32.8 pg (25.0-35.0); MCHC 34.2 g/dL (31.0-37.0); MCV 95.8 fL (80.0-100.0); Mean Platelet Volume 7.3; Monocytes # (A) 1.1 k/uL (0-1.0); Monocytes % (A) 6 %; Neutrophils # (A) 13.6 k/uL (1.3-7.7); Neutrophils % (A) 78 %; RBC 3.93 m/uL (3.80-5.40); RDW 13.8 % (11.5-15.5); WBC 17.4 k/uL (3.8-10.6); WBC (Perox) 18.46
--- NOTE | 2017-05-01 15:46 | XR ---
EXAMINATION TYPE: XR KUB DATE OF EXAM: 05/01/2017 3:41 PM CLINICAL HISTORY: Pain per order. Rectal bleed per patient. TECHNIQUE: 2 upright KUB images of the abdomen are obtained. COMPARISON: CT abdomen pelvis April 10, 2017. FINDINGS: Surgical sutures epigastric region are redemonstrated from prior Memo fundoplication surg maru. Scattered gas is seen in non-distended small bowel loops. Gas and fecal material is seen in non- distended colon. There is no visceromegaly, pneumoperitoneum, or abnormal calcification appreciated. The lung bases are clear and the osseous structures are intact. IMPRESSION: Overall nonobstructive bowel gas pattern remains present.
[2017-05-01 16:03] LABS: ALT 26 U/L (9-52); AST 13 U/L (14-36); Alkaline Phosphatase 66 U/L (38-126); Anion Gap 8 mmol/L; Blood Urea Nitrogen 17 mg/dL (7-17); Calcium 9.1 mg/dL (8.4-10.2); Carbon Dioxide 28 mmol/L (22-30); Chloride 104 mmol/L (98-107); Glucose 87 mg/dL (74-99); Non-African American GFR(MDRD) >60 (>60 ml/min/1.73 sqM); Potassium 3.8 mmol/L (3.5-5.1); Sodium 140 mmol/L (137-145); Total Bilirubin 0.3 mg/dL (0.2-1.3); Total Protein 5.9 g/dL (6.3-8.2)
[2017-05-01] MEDS ORDERED: RX INFO: IV CONTRAST WAS GIVEN 1 EACH MISC MISCELLANE PRN (16:23)
--- NOTE | 2017-05-01 16:54 | CT ---
EXAMINATION TYPE: CT abdomen pelvis w con DATE OF EXAM: 05/01/2017 HISTORY: Rectal bleeding today. CT DLP: 431.5mGycm Automated Exposure Control for Dose Reduction was Utilized. CONTRAST: CT scan of the abdomen and pelvis is performed without oral but with IV Contrast, patient injected wi th 100 mL of Omnipaque 300. COMPARISON: CT abdomen pelvis April 10, 2017 FINDINGS: LUNG BASES: Dependent atelectasis in both lung bases is present. LIVER/GB: No significant abnormality is appreciated. PANCREAS: No significant abnormality is seen. SPLEEN: No significant abnormality is seen. ADRENALS: No significant abnormality is seen. KIDNEYS: There are 2-3 calculi scattered throughout right kidney measuring up to 6 mm in size redemon strated. There is persistent 4 mm calculus in left kidney mid pole level on axial image 30. There are several simple appearing cysts scattered throughout the left kidney. There is symmetric cortical med ullary uptake and excretion from both kidneys without evidence of hydronephrosis bilaterally. BOWEL: Evaluation bowel is suboptimal secondary to lack of enteric contrast. Sutures at base of cecum are present. There is no suspicious small or large bowel dilatation identified there is mild to mode rate wall eccentric thickening in the mid to distal rectum near axial image 72, a focal colitis at th is level is suspected. UTERUS/ADNEXA: Uterus is surgically absent or markedly atrophic in appearance. Interval resolution of cystic lesion right pelvis consistent with resolution of follicular cyst. LYMPH NODES: No greater than 1cm abdominal or pelvic lymph nodes are appreciated. OSSEOUS STRUCTURES: No significant abnormality is seen. OTHER: No significant additional abnormality is seen. IMPRESSION: Suboptimal study. No bowel obstruction is seen. Probable mild distal colitis, clinical co rrelation advised, consider infectious or inflammatory etiologies..
[2017-05-01 17:30] VITALS: BP 121/63; PULSE 74; RESP 16
== END 2017-05-01 17:29 | disposition home or self-care (01) ==
LOC: EC 14:38
DX: K52.9 Noninfective gastroenteritis and colitis, unspecified (principal); K64.4 Residual hemorrhoidal skin tags; M79.7 Fibromyalgia; F32.9 Major depressive disorder, single episode, unspecified; F41.9 Anxiety disorder, unspecified; F17.200 Nicotine dependence, unspecified, uncomplicated; Z90.49 Acquired absence of other specified parts of digestive tract; Z91.030 Bee allergy status; Z91.018 Allergy to other foods; Z87.442 Personal history of urinary calculi; Z79.899 Other long term (current) drug therapy
CPT/HCPCS: 36415; 80053; 83690; 85025; 85730; 74000; 74177; 99284; 96360; Q9967

== ENCOUNTER → 2017-08-15 | Outpatient (CLI) | payer OTHER ==
[2017-08-15 22:33] LABS: Appearance,CSF Clear
[2017-08-17 13:21] LABS: Immunoglobulin G 521 mg/dL (700 - 1600)
[2017-08-20 13:36] LABS: Lyme Specimen Source csf
== END | disposition home or self-care (01) ==
LOC: LABWHC1 09:51
PROVIDERS: ATTEND Psychiatry & Neurology Neurology
DX: R90.82 White matter disease, unspecified (principal)
CPT/HCPCS: 36415; 82040; 82042; 82784; 83873; 83916; 84157; 87476; 88108; 89050

== ENCOUNTER → 2017-11-06 | Outpatient (CLI) | payer OTHER ==
--- NOTE | 2017-11-08 00:17 | MR ---
EXAMINATION TYPE: MR foot LT wo con DATE OF EXAM: 11/06/2017 COMPARISON: NONE HISTORY: 52-year-old female Lesion of plantar nerve / Pain/Numbness, swelling 5th and 4th MTP joints. TECHNIQUE: Multiplanar, multisequence images of the left foot were obtained without IV contrast. FINDINGS: The tarsal tunnel without any abnormal mass lesion or accessory muscle. No evidence for plantar fasciitis. There may be a tiny plantar calcaneal spur. No abnormal hypertroph y of the abductor hallucis. Mild edema is noted of the flexor digitorum brevis along the hindfoot, coronal image 33. However, the re is no abnormal edema of the abductor hallucis. Additionally, no edema of the flexor hallucis brevi s or first lumbrical in the forefoot and midfoot region. The knot of Gavin is clear. There is some deep soft tissue edema along the intrinsic muscles at the level of the fourth and fifth metatarsal heads. Some focal edema along the myotendinous junction of the abductor digit minimi at t he mid metatarsal level is also noted, coronal image 15 and coronal image 21, respectively. No discrete muscular atrophy is identified. Small first and second MTP joint effusions likely within physiologic range. Sinus tarsi normal. Achilles tendon is intact. No tenosynovial fluid seen. No suspicious bone marrow replacement. IMPRESSION: 1. 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 2. The abductor digiti minimi shows mild focal edema along the myotendinous junction at the mid metat arsal level. This pattern of edema does not suggest denervation from inferior calcaneal nerve entrapm ent. Consider muscle strain. 3. Some mild focal edema of the flexor digitorum brevis at the hindfoot level but without additional edema of the other muscles supplied by the medial plantar nerve. Consider a mild muscle strain or sonam ma reactive to altered biomechanics rather than medial plantar neuropathy. 4. There is no linsey atrophy of the muscles of the foot.
== END | disposition home or self-care (01) ==
LOC: RADMRIMAIN 13:34
PROVIDERS: ATTEND Podiatrist
DX: M62.89 Other specified disorders of muscle (principal)

== ENCOUNTER 2018-01-04 10:16 | Day surgery (SDC) | payer OTHER ==
[2018-01-02 10:55] VITALS: BMI 24.9
[~2018-01-04 10:16] MED LIST changes: +LIDOCAINE 1% 20 ML VIAL (10MG/ML) FOR IV START INTRADERMA PRN
[2018-01-04 10:45] VITALS: TEMP 97.5
[2018-01-04] MEDS ORDERED: PROPOFOL 10 MG/ML 20 ML VIAL IV ONE (11:16)
[2018-01-04] MEDS ORDERED: LIDOCAINE 1% INJ 10MG/ML (20 ML MDV) ONE (11:16)
--- NOTE | 2018-01-04 11:24 | P.GSHP ---
History of Present Illness H&P Date: 01/04/18 Chief Complaint: GERD, epigastric pain This a 52-year-old female who's had complaints of GERD epigastric pain. She does today for EGD. 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 History of Any Multi-Drug Resistant Organisms: C-DIFF Date of last positivie culture/infection: MDRO Source:: stool Past Surgical History: Appendectomy, Cholecystectomy, Hysterectomy, Orthopedic Surgery, Tubal Ligation, Uterine Ablation Additional Past Surgical History / Comment(s): carpel tunnel to left, ganglion cyst, SYED FUNDOPLASTY Past Anesthesia/Blood Transfusion Reactions: No Reported Reaction Smoking Status: Current some day smoker - Past Family History Mother Family Medical History: No Reported History Medications and Allergies Home Medications Medication Instructions Recorded Confirmed Type Albuterol Inhaler [Ventolin Hfa 1 puff INHALATION RT-Q6H PRN 02/10/16 01/02/18 History Inhaler] Baclofen [Lioresal] 10 mg PO TID PRN 02/10/16 01/02/18 History Butalb/APAP/Caff 50-325-40Mg 1 tab PO TID PRN 02/10/16 01/02/18 History [Fioricet 50-325-40] Cholecalciferol [Vitamin D3] 2,000 unit PO DAILY 02/10/16 01/02/18 History Gabapentin [Neurontin] 600 mg PO TID 02/10/16 01/02/18 History Ondansetron [Zofran ODT] 8 mg PO Q8HR PRN 02/10/16 01/02/18 History Simvastatin [Zocor] 20 mg PO HS 02/10/16 01/02/18 History Black Cohosh Root [Black Cohosh] 200 mg PO DAILY 12/04/16 01/02/18 History DULoxetine HCL [Cymbalta] 60 mg PO HS 12/04/16 01/04/18 History Cetirizine HCl/Pseudoephedrine 1 tab PO DAILY PRN 12/24/16 01/02/18 History [Zyrtec-D Tablet] Melatonin 5 mg PO HS PRN 12/24/16 01/02/18 History Verapamil HCl [Verapamil ER] 180 mg PO HS 04/10/17 01/02/18 History Lidocaine 2% Gel [Xylocaine Jelly 1 applic TOPICAL QID #15 gm 05/01/17 01/02/18 Rx 2%] Apriso 1.5 gm PO DAILY 01/02/18 01/02/18 History Budesonide [Budesonide EC] 9 mg PO QAM 01/02/18 01/02/18 History HYDROcodone/APAP 7.5-325MG [[place] 1 tab PO BID PRN 01/02/18 01/02/18 History 7.5-325] Naproxen 500 mg PO BID 01/02/18 01/02/18 History SUMAtriptan SUCCINATE [Imitrex] 50 mg PO DAILY PRN 01/02/18 01/02/18 History buPROPion XL [Wellbutrin Xl] 150 mg PO QAM 01/02/18 01/02/18 History Allergies Allergy/AdvReac Type Severity Reaction Status Date / Time venom-honey bee Allergy Severe Anaphylaxis Verified 01/04/18 10:31 [bee venom (honey bee)] coconut oil Allergy Unknown Rash/Hives Verified 01/04/18 10:31 Hops plant Allergy projectile Uncoded 01/04/18 10:31 vomiting Surgical - Exam Vital Signs Temp Pulse Resp BP Pulse Ox 97.5 F L 65 16 121/68 97 01/04/18 10:42 01/04/18 10:42 01/04/18 10:42 01/04/18 10:42 01/04/18 10:42 - General well developed, no distress - Eyes PERRL - ENT normal pinna - Neck no masses - Respiratory normal expansion - Cardiovascular Rhythm: regular - Abdomen Abdomen: soft, non tender Assessment and Plan Assessment: GERD, epigastric pain. We'll perform EGD.
--- NOTE | 2018-01-04 11:37 | P.OP ---
Date of Procedure: 01/04/18 Preoperative Diagnosis: GERD Epigastric pain Postoperative Diagnosis: Mild antral gastritis No evidence of recurrent hiatal hernia No evidence of esophagitis Procedure(s) Performed: EGD Anesthesia: MAC Surgeon: Davin Clark Pathology: other (Antrum) Condition: stable Disposition: PACU Description of Procedure: The patient's placed on the endoscopy table in the lateral position. She received IV sedation. The gastroscope was placed oropharynx passed in the esophagus and into the stomach. The scope was then placed through the pylorus. The first and second portion of the duodenum appeared normal. The scope was then brought back the antrum this is mildly inflamed. A biopsies performed. The scope was retroflexed and remainder of the stomach appeared normal. There was no evidence of a hiatal hernia. The previous fundal plication wrap appeared to be in appropriate position. The distal esophagus appeared normal. The proximal esophagus appeared normal. The scope was withdrawn for patient.
[2018-01-04 11:43] VITALS: PULSE 58
[2018-01-04 12:12] VITALS: BP 117/73; RESP 16
== END 2018-01-04 12:14 | disposition home or self-care (01) ==
LOC: ORWHC2ENDO 10:16
PROVIDERS: ATTEND Surgery
DX: K21.9 Gastro-esophageal reflux disease without esophagitis (principal); J44.9 Chronic obstructive pulmonary disease, unspecified; F17.200 Nicotine dependence, unspecified, uncomplicated; M19.90 Unspecified osteoarthritis, unspecified site; K29.70 Gastritis, unspecified, without bleeding; Z87.19 Personal history of other diseases of the digestive system; Z87.442 Personal history of urinary calculi; M79.7 Fibromyalgia; Z79.899 Other long term (current) drug therapy; Z91.030 Bee allergy status; Z91.018 Allergy to other foods; Z91.09 Other allergy status, other than to drugs and biological substances
CPT/HCPCS: 88305; 43239; J2001; J2704

== ENCOUNTER → 2018-03-27 | Outpatient (CLI) | payer OTHER ==
[2018-03-27 11:18] VITALS: BMI 24.3
== END | disposition home or self-care (01) ==
LOC: MNTWWP 10:46
PROVIDERS: ATTEND Family Medicine
DX: K51.919 Ulcerative colitis, unspecified with unspecified complications (principal); N20.0 Calculus of kidney
CPT/HCPCS: 97802

== ENCOUNTER → 2018-06-20 | Outpatient (CLI) | payer OTHER ==
--- NOTE | 2018-06-20 11:02 | MR ---
MRI CERVICAL SPINE: CLINICAL HISTORY: Cervicalgia per order. Headache with inability to move neck for 1.5 years per patie nt. TECHNIQUE: Multiplanar, multisequence imaging of the cervical spine is performed without IV contrast. COMPARISON: None. FINDINGS: Sagittal images of the cervical spine show the craniocervical junction to appear within nor mal limits. The cervical and upper thoracic spinal cord is normal in course, caliber, and signal. V ertebral alignment is anatomic. The vertebral body and intravertebral disk heights are normal. Poste rior disc herniation C5-C6 level as seen on sagittal images mildly effacing anterior thecal sac. The bone marrow signal intensity is within normal limits. No significant spurring is seen. Axial images show the C2-C3, C3-C4, and C4-C5 levels to appear within normal limits. Axial images at the C5-C6 level show broad-based posterior disc protrusion mildly effacing anterior t hecal sac and causing asymmetric mild right-sided neural foraminal narrowing. Left-sided neural erik en is patent. Axial images at the C6-C7 level and C7-T1 level are felt within normal limits. IMPRESSION: Small disc herniation C5-C6 level otherwise unremarkable study.
== END | disposition home or self-care (01) ==
LOC: RADMRIMAIN 09:38
PROVIDERS: ATTEND Physician Assistant
DX: M50.222 Other cervical disc displacement at C5-C6 level (principal); Z91.030 Bee allergy status; Z91.048 Other nonmedicinal substance allergy status
CPT/HCPCS: 72141

== ENCOUNTER 2020-03-10 10:18 | Inpatient (IN) | payer MEDICARE, OTHER ==
[2020-03-10] MEDS ORDERED: SODIUM CHLORIDE 0.9% 1,000 ML IV STA (10:46)
[2020-03-10] MEDS ORDERED: ONDANSETRON 4 MG/2 ML VIAL IVP STA (10:46)
--- NOTE | 2020-03-10 10:51 | ED ---
Abdominal Pain HPI - General Chief Complaint: Abdominal Pain Stated Complaint: Abd Pain Time Seen by Provider: 03/10/20 10:28 Source: patient Mode of arrival: ambulatory Limitations: no limitations - History of Present Illness Initial Comments: Patient is a 54-year-old female presenting to the emergency department with chief complaint of abdominal pain. States she woke up this morning around 0500 with sudden onset of upper abdominal pain along with nausea and multiple episodes of nonbilious, nonbloody vomiting. Denies any diarrhea. States the pain is sharp in nature and constant. Patient reports previous surgical history of cholecystectomy, appendectomy and hysterectomy. States she also developed shortness of breath at the abdominal pain began. Denies taking medication to alleviate the symptoms. Denies any urinary or vaginal symptoms. Denies hematuria, hematochezia or melena. - Related Data Home Medications Medication Instructions Recorded Confirmed Albuterol Inhaler (Mhu) [Ventolin 1 puff INHALATION RT-Q6H PRN 02/10/16 01/02/18 Hfa Inhaler (Mhu)] Baclofen [Lioresal] 10 mg PO TID PRN 02/10/16 01/02/18 Butalb/APAP/Caff 50-325-40Mg 1 tab PO TID PRN 02/10/16 01/02/18 [Fioricet 50-325-40] Cholecalciferol [Vitamin D3 (25 2,000 unit PO DAILY 02/10/16 01/02/18 Mcg = 1000 Iu)] Gabapentin [Neurontin] 600 mg PO TID 02/10/16 01/02/18 Ondansetron [Zofran ODT] 8 mg PO Q8HR PRN 02/10/16 01/02/18 Simvastatin [Zocor] 20 mg PO HS 02/10/16 01/02/18 Black Cohosh Root [Black Cohosh] 200 mg PO DAILY 12/04/16 01/02/18 DULoxetine HCL [Cymbalta] 60 mg PO HS 12/04/16 01/04/18 Cetirizine HCl/Pseudoephedrine 1 tab PO DAILY PRN 12/24/16 01/02/18 [Zyrtec-D Tablet] Melatonin 5 mg PO HS PRN 12/24/16 01/02/18 Verapamil HCl [Verapamil ER] 180 mg PO HS 04/10/17 01/02/18 Apriso 1.5 gm PO DAILY 01/02/18 01/02/18 Budesonide [Budesonide EC] 9 mg PO QAM 01/02/18 01/02/18 HYDROcodone/APAP 7.5-325MG [[place] 1 tab PO BID PRN 01/02/18 01/02/18 7.5-325] Naproxen 500 mg PO BID 01/02/18 01/02/18 SUMAtriptan SUCCINATE [Imitrex] 50 mg PO DAILY PRN 01/02/18 01/02/18 buPROPion XL [Wellbutrin Xl] 150 mg PO QAM 01/02/18 01/02/18 Previous Rx's Medication Instructions Recorded Lidocaine 2% Gel [Xylocaine Jelly 1 applic TOPICAL QID #15 gm 05/01/17 2%] Allergies Allergy/AdvReac Type Severity Reaction Status Date / Time venom-honey bee Allergy Severe Anaphylaxis Verified 03/10/20 10:28 [bee venom (honey bee)] coconut oil Allergy Unknown Rash/Hives Verified 03/10/20 10:28 Hops plant Allergy projectile Uncoded 03/10/20 10:28 vomiting Review of Systems ROS Statement: Those systems with pertinent positive or pertinent negative responses have been documented in the HPI. ROS Other: All systems not noted in ROS Statement are negative. 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 History of Any Multi-Drug Resistant Organisms: C-DIFF Date of last positivie culture/infection: MDRO Source:: stool Past Surgical History: Appendectomy, Cholecystectomy, Hysterectomy, Orthopedic Surgery, Tubal Ligation, Uterine Ablation Additional Past Surgical History / Comment(s): carpel tunnel to left, ganglion cyst, SYED FUNDOPLASTY Past Anesthesia/Blood Transfusion Reactions: No Reported Reaction Past Psychological History: Anxiety, Depression Smoking Status: Current some day smoker - Past Family History Mother Family Medical History: No Reported History General Exam Limitations: no limitations General appearance: alert, in no apparent distress Head exam: Present: atraumatic, normocephalic, normal inspection Eye exam: Present: normal appearance, PERRL, EOMI Pupils: Present: normal accommodation ENT exam: Present: normal exam, normal oropharynx, mucous membranes moist Neck exam: Present: normal inspection, full ROM Respiratory exam: Present: normal lung sounds bilaterally. Absent: respiratory distress, wheezes, rales Cardiovascular Exam: Present: regular rate, normal rhythm, normal heart sounds GI/Abdominal exam: Present: soft, tenderness (Epigastric right upper quadrant). Absent: distended, guarding, rebound, rigid Extremities exam: Present: normal inspection, full ROM Back exam: Present: normal inspection, full ROM Neurological exam: Present: alert, oriented X3 Psychiatric exam: Present: normal affect, normal mood Skin exam: Present: warm, dry, intact, normal color Course Vital Signs 03/10/20 03/10/20 10:26 12:15 Temperature 97.6 F Pulse Rate 91 98 Respiratory 22 18 Rate Blood Pressure 138/91 121/83 O2 Sat by Pulse 98 98 Oximetry Medical Decision Making - Medical Decision Making Patient is a 54-year-old female presenting to the emergency department with a chief complaint of abdominal pain. Sonata the abdominal pain. Exam dispersed with diffuse abdominal pain. Patient has history of appendectomy hysterectomy and cholecystectomy. She does have a white count of 23K. CT of abdomen shows partial small bowel obstruction. Nothing by mouth. I spoke with Dr. Bang who will admit the patient further medical management. Case discussed with Dr. Lakhani. GI on consult. - Lab Data Result diagrams: 03/10/20 10:36 03/10/20 10:36 Lab Results 03/10/20 03/10/20 03/10/20 Range/Units 10:36 10:36 10:55 WBC 23.2 H (3.8-10.6) k/uL RBC 5.06 (3.80-5.40) m/uL Hgb 16.0 (11.4-16.0) gm/dL Hct 47.4 H (34.0-46.0) % MCV 93.6 (80.0-100.0) fL MCH 31.6 (25.0-35.0) pg MCHC 33.8 (31.0-37.0) g/dL RDW 13.1 (11.5-15.5) % Plt Count 299 (150-450) k/uL Neutrophils % 82 % Lymphocytes % 11 % Monocytes % 5 % Eosinophils % 1 % Basophils % 0 % Neutrophils # 19.0 H (1.3-7.7) k/uL Lymphocytes # 2.6 (1.0-4.8) k/uL Monocytes # 1.1 H (0-1.0) k/uL Eosinophils # 0.2 (0-0.7) k/uL Basophils # 0.1 (0-0.2) k/uL Sodium 141 (137-145) mmol/L Potassium 4.5 (3.5-5.1) mmol/L Chloride 102 (98-107) mmol/L Carbon Dioxide 28 (22-30) mmol/L Anion Gap 11 mmol/L BUN 35 H (7-17) mg/dL Creatinine 0.87 (0.52-1.04) mg/dL Est GFR (CKD-EPI)AfAm 87 (>60 ml/min/1.73 sqM) Est GFR (CKD-EPI)NonAf 75 (>60 ml/min/1.73 sqM) Glucose 125 H (74-99) mg/dL Calcium 9.9 (8.4-10.2) mg/dL Total Bilirubin 0.5 (0.2-1.3) mg/dL AST 19 (14-36) U/L ALT 16 (4-34) U/L Alkaline Phosphatase 117 (38-126) U/L Total Protein 7.4 (6.3-8.2) g/dL Albumin 4.6 (3.5-5.0) g/dL Amylase 42 (30-110) U/L Lipase 67 (23-300) U/L Urine Color Yellow Urine Appearance Cloudy H (Clear) Urine pH 7.0 (5.0-8.0) Ur Specific [place] 1.023 (1.001-1.035) Urine Protein Trace H (Negative) Urine Glucose (UA) Negative (Negative) Urine Ketones Negative (Negative) Urine Blood Negative (Negative) Urine Nitrite Negative (Negative) Urine Bilirubin Negative (Negative) Urine Urobilinogen <2.0 (<2.0) mg/dL Ur Leukocyte Esterase Negative (Negative) Urine RBC 4 (0-5) /hpf Urine WBC 3 (0-5) /hpf Ur Squamous Epith Cells 1 (0-4) /hpf Amorphous Sediment Rare H (None) /hpf Urine Mucus Rare H (None) /hpf - EKG Data EKG Comments: Sinus rhythm no ST or T-wave changes. Ventricular rate 96, DE 144, QRS 84, QTC 457. Disposition Clinical Impression: Abdominal pain, Nausea & vomiting, Small bowel obstruction Disposition: ADMITTED IP TO THIS HOSP Condition: Stable Instructions (If sedation given, give patient instructions): Abdominal Pain (ED) Additional Instructions: Patient will be admitted Is patient prescribed a controlled substance at d/c from ED?: No Referrals: Holly Jaffe DO [Primary Care Provider] - 1-2 days Time of Disposition: 13:17
[2020-03-10] MEDS ORDERED: MORPHINE SULFATE 4 MG/ML SYRINGE IVP STA (11:11)
[2020-03-10 11:17] LABS: Basophils # (A) 0.1 k/uL (0-0.2); Basophils % (A) 0 %; Eosinophils # (A) 0.2 k/uL (0-0.7); Eosinophils % (A) 1 %; HCT 47.4 % (34.0-46.0); Lymphocytes # (A) 2.6 k/uL (1.0-4.8); Lymphocytes % (A) 11 %; MCH 31.6 pg (25.0-35.0); MCHC 33.8 g/dL (31.0-37.0); MCV 93.6 fL (80.0-100.0); Mean Platelet Volume 7.9; Monocytes # (A) 1.1 k/uL (0-1.0); Monocytes % (A) 5 %; Neutrophils % (A) 82 %; Platelet Count 299 k/uL (150-450); RBC 5.06 m/uL (3.80-5.40); RDW 13.1 % (11.5-15.5); WBC 23.2 k/uL (3.8-10.6)
[2020-03-10 11:26] LABS: Albumin 4.6 g/dL (3.5-5.0); Calcium 9.9 mg/dL (8.4-10.2); Potassium 4.5 mmol/L (3.5-5.1); Total Bilirubin 0.5 mg/dL (0.2-1.3); Total Protein 7.4 g/dL (6.3-8.2)
[2020-03-10 11:31] LABS: Amorphous Sediment,Urine Rare /hpf; Appearance,Urine Cloudy (Clear); Bilirubin,Urine Negative (Negative); Blood,Urine Negative (Negative); Color,Urine Yellow; Glucose,Urine (UA) Negative (Negative); Ketones,Urine Negative (Negative); Leukocyte Esterase,Urine Negative (Negative); Mucus,Urine Rare /hpf; Nitrite,Urine Negative (Negative); Protein,Urine Trace (Negative); RBC,Urine 4 /hpf (0-5); Specific Gravity,Urine 1.023 (1.001-1.035); Squamous Epithelial Cell,Urine 1 /hpf (0-4); Urobilinogen,Urine <2.0 mg/dL (<2.0); WBC,Urine 3 /hpf (0-5)
--- NOTE | 2020-03-10 11:36 | XR ---
EXAMINATION TYPE: XR KUB DATE OF EXAM: 03/10/2020 11:27 AM CLINICAL HISTORY: Abdominal pain TECHNIQUE: Single upright image of the abdomen is obtained. COMPARISON: 05/01/2017. FINDINGS: Centralized loops of mildly dilated small bowel measuring up to 3.3 cm and display differen tial air-fluid levels. Mild degree colonic fecal stasis is seen in the nondilated large bowel. Lung b ases are well aerated. Very mild right hemidiaphragm elevation incidentally noted. Osseous structures appear grossly intact. IMPRESSION: Differential small bowel air-fluid levels in mildly dilated centralized small bowel marcela rning for small bowel obstruction versus high-grade ileus
--- NOTE | 2020-03-10 12:41 | CT ---
EXAMINATION TYPE: CT abdomen pelvis w con DATE OF EXAM: 03/10/2020 HISTORY: Abd. pain CT DLP: 1061.8mGycm Automated Exposure Control for Dose Reduction was Utilized. CONTRAST: CT scan of the abdomen and pelvis is performed with IV Contrast, patient injected with 100 mL of Isov ue 300. COMPARISON: 05/01/2017 FINDINGS: LUNG BASES: Minimal bibasilar subsegmental atelectasis. LIVER/GB: Hepatic parenchyma is diffusely hypoattenuated in comparison to that of the spleen, most co mmonly seen in hepatic steatosis. This finding limits evaluation for hepatic masses. Extrahepatic tj iary ductal dilatation measures up to 1.2 cm and there is mild intrahepatic biliary ductal dilatation . Finding is new from 2017. Surgical absence of the gallbladder. PANCREAS: Main pancreatic duct is slightly dilated measuring 3.5 mm. SPLEEN: No splenomegaly. ADRENALS: No significant abnormality is seen. KIDNEYS: Cortical retraction is seen of the right mid to lower pole with a dystrophic calcification m easuring 3 mm on delayed imaging there is a calyceal diverticulum at this location on series 301 imag e 35. There are multiple bilateral renal cysts, and few subcentimeter bilateral renal lesions that ar e too small to accurately characterize. The largest cyst is seen on the left in the superior pole catrachito suring 3.8 cm. No hydronephrosis of either kidney. BOWEL: Postsurgical change at the gastroesophageal junction. Descending duodenal diverticulum again n oted. Appendix appears surgically absent. Dilated loops of small bowel containing air-fluid levels an d there are few loops of small bowel are nondilated. In the right lower quadrant there is slight narr owing of the small bowel without distinct transition point is more distally the bowel becomes fluid-f illed and prominent again. Additionally the terminal ileum is fluid-filled. Distal esophagus is fluid -filled. LYMPH NODES: No greater than 1cm abdominal or pelvic lymph nodes are appreciated. OSSEOUS STRUCTURES: No significant abnormality is seen. OTHER: Minimal atherosclerosis of the abdominal aorta. IMPRESSION: 1. Findings relating to either early partial small bowel obstruction or high-grade ileus as there is a focal area of narrowing in the right lower quadrant without focal transition point as fluid-filled loops of bowel are seen distal to this and the terminal ileum is fluid-filled. 2. New main pancreatic, intrahepatic and extra hepatic biliary ductal dilatation status post cholecys tectomy. Correlate with serum bilirubin and alkaline phosphatase. Nonemergent follow-up MRCP with and without contrast is recommended for further evaluation.
[2020-03-10] MEDS ORDERED: MORPHINE SULFATE 4 MG/ML SYRINGE IV PRN (13:14)
[2020-03-10] MEDS ORDERED: NALOXONE 0.4 MG/ML 1 ML VIAL IV PRN (13:14)
[2020-03-10] MEDS ORDERED: ALPRAZolam 0.25 MG TAB PO PRN (13:14)
[2020-03-10] MEDS ORDERED: PANTOPRAZOLE 40 MG/10 ML VIAL IVP STA (13:17)
--- NOTE | 2020-03-10 14:40 | P.HPIM ---
History of Present Illness patient is a pleasant 54-year-old female came in with complaints of abdominal pain for the midepigastric as well as bilateral upper quadrant abdominal pain had multiple episodes of nausea vomiting which started today pain is sharp in nature constant moderate severity patient had previous cholecystectomy appendectomy and hysterectomy. Patient is found to havehigh-grade ileus and there is a focal area of narrowing in the right lower quadrant without any obvious focal transition point in the terminal EEG and was significantly dilated with fluid filled loops. There is also incidental finding of mild intrahepatic ductal limitation although liver enzymes are essentially within normal limits Review of Systems REVIEW OF SYSTEMS: CONSTITUTIONAL: No fever, no malaise, no fatigue. HEENT: No recent visual problems or hearing problems. Denied any sore throat. CARDIOVASCULAR: No chest pain, orthopnea, PND, no palpitations, no syncope. PULMONARY: No shortness of breath, no cough, no hemoptysis. GASTROINTESTINAL:as mentioned in HPI NEUROLOGICAL: No headaches, no weakness, no numbness. HEMATOLOGICAL: Denies any bleeding or petechiae. GENITOURINARY: Denies any burning micturition, frequency, or urgency. MUSCULOSKELETAL/RHEUMATOLOGICAL: Denies any joint pain, swelling, or any muscle pain. ENDOCRINE: Denies any polyuria or polydipsia. The rest of the 14-point review of systems is negative. 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 History of Any Multi-Drug Resistant Organisms: C-DIFF Date of last positivie culture/infection: MDRO Source:: stool Past Surgical History: Appendectomy, Cholecystectomy, Hysterectomy, Orthopedic Surgery, Tubal Ligation, Uterine Ablation Additional Past Surgical History / Comment(s): carpel tunnel to left, ganglion cyst, SYED FUNDOPLASTY Past Anesthesia/Blood Transfusion Reactions: No Reported Reaction Past Psychological History: Anxiety, Depression Smoking Status: Current some day smoker - Past Family History Mother Family Medical History: No Reported History Medications and Allergies Home Medications Medication Instructions Recorded Confirmed Type Albuterol Inhaler (Mhu) [Ventolin 1 puff INHALATION RT-QID PRN 02/10/16 03/10/20 History Hfa Inhaler (Mhu)] Gabapentin [Neurontin] 600 mg PO TID 02/10/16 03/10/20 History Simvastatin [Zocor] 20 mg PO HS 02/10/16 03/10/20 History DULoxetine HCL [Cymbalta] 60 mg PO HS 12/04/16 03/10/20 History Melatonin 5 mg PO HS PRN 12/24/16 03/10/20 History Verapamil HCl [Verapamil ER] 180 mg PO HS 04/10/17 03/10/20 History HYDROcodone/APAP 7.5-325MG [[place] 1 tab PO BID PRN 01/02/18 03/10/20 History 7.5-325] Naproxen 500 mg PO BID 01/02/18 03/10/20 History SUMAtriptan SUCCINATE [Imitrex] 50 mg PO DAILY PRN 01/02/18 03/10/20 History Cholecalciferol [Vitamin D3 (25 2,000 unit PO DAILY 03/10/20 03/10/20 History Mcg = 1000 Iu)] Cyanocobalamin (Vitamin B-12) 2,500 mcg PO DAILY 03/10/20 03/10/20 History [Vitamin B-12] Cyclobenzaprine [Flexeril] 10 mg PO TID 03/10/20 03/10/20 History Evening [place] Oil 1,000 mg PO BID 03/10/20 03/10/20 History Galcanezumab-Gnlm [Emgality] 120 mg SQ Q28D 03/10/20 03/10/20 History Glucosamine/Chondr Watters A Sod [Osteo 1 tab PO DAILY 03/10/20 03/10/20 History Bi-Flex Caplet] L.acidoph,Paracasei, B.lactis 1 cap PO DAILY 03/10/20 03/10/20 History [Probiotic] Mesalamine [Mesalamine ER] 1.5 gm PO DAILY 03/10/20 03/10/20 History QUEtiapine [SEROquel] 100 mg PO HS 03/10/20 03/10/20 History buPROPion HCL [Bupropion HCl ER] 200 mg PO BID 03/10/20 03/10/20 History lamoTRIgine [LaMICtal] 100 mg PO DAILY 03/10/20 03/10/20 History Allergies Allergy/AdvReac Type Severity Reaction Status Date / Time venom-honey bee Allergy Severe Anaphylaxis Verified 03/10/20 14:07 [bee venom (honey bee)] coconut oil Allergy Unknown Rash/Hives Verified 03/10/20 14:07 Hops plant Allergy projectile Uncoded 03/10/20 10:28 vomiting Physical Exam Vitals: Vital Signs Temp Pulse Resp BP Pulse Ox 03/10/20 12:15 98 18 121/83 98 03/10/20 10:26 97.6 F 91 22 138/91 98 Intake and Output 03/09/20 03/10/20 03/10/20 22:59 06:59 14:59 Other: Weight 77.111 kg PHYSICAL EXAMINATION: GENERAL: The patient is alert and oriented x3, not in any acute distress. Well developed, well nourished. HEENT: Pupils are round and equally reacting to light. EOMI. No scleral icterus. No conjunctival pallor. Normocephalic, atraumatic. No pharyngeal erythema. No thyromegaly. CARDIOVASCULAR: S1 and S2 present. No murmurs, rubs, or gallops. PULMONARY: Chest is clear to auscultation, no wheezing or crackles. ABDOMEN: Soft, tenderness in the upper quadrants and epigastric area, nondistended, hyperactive bowel sounds. No palpable organomegaly. MUSCULOSKELETAL: No joint swelling or deformity. EXTREMITIES: No cyanosis, clubbing, or pedal edema. NEUROLOGICAL: Gross neurological examination did not reveal any focal deficits. SKIN: No rashes. Results CBC & Chem 7: 03/10/20 10:36 03/10/20 10:36 Labs: Abnormal Lab Results - Last 24 Hours (Table) 03/10/20 03/10/20 03/10/20 Range/Units 10:36 10:36 10:55 WBC 23.2 H (3.8-10.6) k/uL Hct 47.4 H (34.0-46.0) % Neutrophils # 19.0 H (1.3-7.7) k/uL Monocytes # 1.1 H (0-1.0) k/uL BUN 35 H (7-17) mg/dL Glucose 125 H (74-99) mg/dL Urine Appearance Cloudy H (Clear) Urine Protein Trace H (Negative) Amorphous Sediment Rare H (None) /hpf Urine Mucus Rare H (None) /hpf Assessment and Plan Plan: -possible years,'s small bowel obstruction: Patient will be nothing by mouth, continue with IV fluids general surgery will be consulted computed tomography scan of the abdomen as mentioned aboveconservative measures continue with present pain medication -Possible peptic is this is a gastritis: Patient was started on Protonix- COPD without any acute exacerbation continued nicotine use nicotine cessation counseling was provided patient was started back on his home medications -Fibromyalgia -DVT prophylaxis and early ambulation
[2020-03-10] MEDS: HYDROmorphone 0.5 MG/0.5 ML SYRINGE IVP PRN ×2 (15:02→18:34)
[2020-03-10] MEDS: SODIUM CHLORIDE 0.9% 1,000 ML IV SCH (15:35)
[2020-03-11] MEDS: HYDROmorphone 0.5 MG/0.5 ML SYRINGE IVP PRN ×6 (00:27→20:26)
[2020-03-11] MEDS: SODIUM CHLORIDE 0.9% 1,000 ML IV SCH ×2 (06:35→17:00)
[2020-03-11] MEDS ORDERED: SUMAtriptan SUCCINATE 50 MG TAB PO PRN (06:51)
[2020-03-11] MEDS ORDERED: MELATONIN 5 MG TABLET PO PRN (06:51)
[2020-03-11] MEDS ORDERED: ALBUTEROL NEBULIZED 2.5 MG/3 ML INHALATION PRN (06:51)
--- NOTE | 2020-03-11 07:37 | P.GSCN ---
History of Present Illness Consult date: 03/10/20 Reason for Consult: SBO Requesting physician: Fabian Lee History of present illness: CHIEF COMPLAINT: Small bowel obstruction HISTORY OF PRESENT ILLNESS: 54-year-old female who presented to the emergency room with a chief complaint of abdominal pain. Patient examined at the bedside with Dr. Clark. Patient complains of abdominal bloating. She reports generalized pain. She is passing flatus and having bowel movements. PAST MEDICAL HISTORY: See list. PAST SURGICAL HISTORY: See list. SOCIAL HISTORY: No illicit drug use. REVIEW OF SYSTEMS: CONSTITUTIONAL: Denies fever or chills. HEENT: Denies blurred vision, vision changes, or eye pain. Denies hemoptysis CARDIOVASCULAR: Denies chest pain or pressure. RESPIRATORY: No shortness of breath. GASTROINTESTINAL: Refer to HPI for pertinent findings HEMATOLOGIC: Denies bleeding disorders. GENITOURINARY: Denies any blood in urine. SKIN: Denies pruitis. Denies rash. PHYSICAL EXAM: VITAL SIGNS: Reviewed. GENERAL: Well-developed in no acute distress. HEENT: No sclera icterus. Extraocular movements grossly intact. Moist buccal mucosa. Head is atraumatic, normocephalic. ABDOMEN: Soft. Mildly distended. Mild diffuse tenderness. NEUROLOGIC: Alert and oriented. Cranial nerves II through XII grossly intact. LABORATORY DATA: WBC 23.2. Hemoglobin 16.0. Platelet count 299. IMAGING: CT abdomen and pelvis: Findings relating to either early partial small bowel obstruction or high-grade ileus as there is focal area of narrowing in the right lower quadrant without focal transition point as fluid-filled loops of bowel are seen distal to this and the terminal ileum is fluid-filled ASSESSMENT: 1. Abdominal pain 2. Small bowel obstruction versus ileus PLAN: -Begin clear liquid diet -Repeat abdominal x-ray in a.m. Nurse practitioner note has been reviewed by physician. Signing provider agrees with the documented findings, assessment, and plan of care. 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 History of Any Multi-Drug Resistant Organisms: C-DIFF Year Discovered:: MDRO Source:: stool Past Surgical History: Appendectomy, Cholecystectomy, Hysterectomy, Orthopedic Surgery, Tubal Ligation, Uterine Ablation Additional Past Surgical History / Comment(s): carpel tunnel to left, ganglion cyst, SYED FUNDOPLASTY Past Anesthesia/Blood Transfusion Reactions: No Reported Reaction Past Psychological History: Anxiety, Depression Smoking Status: Current some day smoker - Past Family History Mother Family Medical History: No Reported History Medications and Allergies Home Medications Medication Instructions Recorded Confirmed Type Albuterol Inhaler (Mhu) [Ventolin 1 puff INHALATION RT-QID PRN 02/10/16 03/10/20 History Hfa Inhaler (Mhu)] Gabapentin [Neurontin] 600 mg PO TID 02/10/16 03/10/20 History Simvastatin [Zocor] 20 mg PO HS 02/10/16 03/10/20 History DULoxetine HCL [Cymbalta] 60 mg PO HS 12/04/16 03/10/20 History Melatonin 5 mg PO HS PRN 12/24/16 03/10/20 History Verapamil HCl [Verapamil ER] 180 mg PO HS 04/10/17 03/10/20 History HYDROcodone/APAP 7.5-325MG [[place] 1 tab PO BID PRN 01/02/18 03/10/20 History 7.5-325] Naproxen 500 mg PO BID 01/02/18 03/10/20 History SUMAtriptan SUCCINATE [Imitrex] 50 mg PO DAILY PRN 01/02/18 03/10/20 History Cholecalciferol [Vitamin D3 (25 2,000 unit PO DAILY 03/10/20 03/10/20 History Mcg = 1000 Iu)] Cyanocobalamin (Vitamin B-12) 2,500 mcg PO DAILY 03/10/20 03/10/20 History [Vitamin B-12] Cyclobenzaprine [Flexeril] 10 mg PO TID 03/10/20 03/10/20 History Evening [place] Oil 1,000 mg PO BID 03/10/20 03/10/20 History Galcanezumab-Gnlm [Emgality] 120 mg SQ Q28D 03/10/20 03/10/20 History Glucosamine/Chondr [place] A Sod [Osteo 1 tab PO DAILY 03/10/20 03/10/20 History Bi-Flex Caplet] L.acidoph,Paracasei, B.lactis 1 cap PO DAILY 03/10/20 03/10/20 History [Probiotic] Mesalamine [Mesalamine ER] 1.5 gm PO DAILY 03/10/20 03/10/20 History QUEtiapine [SEROquel] 100 mg PO HS 03/10/20 03/10/20 History buPROPion HCL [Bupropion HCl ER] 200 mg PO BID 03/10/20 03/10/20 History lamoTRIgine [LaMICtal] 100 mg PO DAILY 03/10/20 03/10/20 History Allergies Allergy/AdvReac Type Severity Reaction Status Date / Time venom-honey bee Allergy Severe Anaphylaxis Verified 03/10/20 14:07 [bee venom (honey bee)] coconut oil Allergy Unknown Rash/Hives Verified 03/10/20 14:07 Hops plant Allergy projectile Uncoded 03/10/20 10:28 vomiting Surgical - Exam Vital Signs Temp Pulse Resp BP Pulse Ox 97.6 F 91 22 138/91 98 03/10/20 10:26 03/10/20 10:26 03/10/20 10:26 03/10/20 10:26 03/10/20 10:26 Results - Labs 03/10/20 10:36 03/10/20 10:36 Abnormal Lab Results - Last 24 Hours (Table) 03/10/20 03/10/20 03/10/20 Range/Units 10:36 10:36 10:55 WBC 23.2 H (3.8-10.6) k/uL Hct 47.4 H (34.0-46.0) % Neutrophils # 19.0 H (1.3-7.7) k/uL Monocytes # 1.1 H (0-1.0) k/uL BUN 35 H (7-17) mg/dL Glucose 125 H (74-99) mg/dL Urine Appearance Cloudy H (Clear) Urine Protein Trace H (Negative) Amorphous Sediment Rare H (None) /hpf Urine Mucus Rare H (None) /hpf Diabetes panel 03/10/20 Range/Units 10:36 Sodium 141 (137-145) mmol/L Potassium 4.5 (3.5-5.1) mmol/L Chloride 102 (98-107) mmol/L Carbon Dioxide 28 (22-30) mmol/L BUN 35 H (7-17) mg/dL Creatinine 0.87 (0.52-1.04) mg/dL Glucose 125 H (74-99) mg/dL Calcium 9.9 (8.4-10.2) mg/dL AST 19 (14-36) U/L ALT 16 (4-34) U/L Alkaline Phosphatase 117 (38-126) U/L Total Protein 7.4 (6.3-8.2) g/dL Albumin 4.6 (3.5-5.0) g/dL Calcium panel 03/10/20 Range/Units 10:36 Calcium 9.9 (8.4-10.2) mg/dL Albumin 4.6 (3.5-5.0) g/dL Pituitary panel 03/10/20 Range/Units 10:36 Sodium 141 (137-145) mmol/L Potassium 4.5 (3.5-5.1) mmol/L Chloride 102 (98-107) mmol/L Carbon Dioxide 28 (22-30) mmol/L BUN 35 H (7-17) mg/dL Creatinine 0.87 (0.52-1.04) mg/dL Glucose 125 H (74-99) mg/dL Calcium 9.9 (8.4-10.2) mg/dL Adrenal panel 03/10/20 Range/Units 10:36 Sodium 141 (137-145) mmol/L Potassium 4.5 (3.5-5.1) mmol/L Chloride 102 (98-107) mmol/L Carbon Dioxide 28 (22-30) mmol/L BUN 35 H (7-17) mg/dL Creatinine 0.87 (0.52-1.04) mg/dL Glucose 125 H (74-99) mg/dL Calcium 9.9 (8.4-10.2) mg/dL Total Bilirubin 0.5 (0.2-1.3) mg/dL AST 19 (14-36) U/L ALT 16 (4-34) U/L Alkaline Phosphatase 117 (38-126) U/L Total Protein 7.4 (6.3-8.2) g/dL Albumin 4.6 (3.5-5.0) g/dL
[2020-03-11 07:59] LABS: HCT 40.6 % (34.0-46.0); HGB 13.2 gm/dL (11.4-16.0); MCH 31.6 pg (25.0-35.0); MCHC 32.4 g/dL (31.0-37.0); MCV 97.6 fL (80.0-100.0); Platelet Count 222 k/uL (150-450); RBC 4.16 m/uL (3.80-5.40); RDW 13.1 % (11.5-15.5); WBC 9.6 k/uL (3.8-10.6)
[2020-03-11 08:07] LABS: ALT 240 U/L (4-34); AST 168 U/L (14-36); African American GFR (CKD) >90 (>60 ml/min/1.73 sqM); Albumin 3.6 g/dL (3.5-5.0); Alkaline Phosphatase 135 U/L (38-126); Anion Gap 6 mmol/L; Blood Urea Nitrogen 22 mg/dL (7-17); Calcium 8.5 mg/dL (8.4-10.2); Carbon Dioxide 24 mmol/L (22-30); Chloride 107 mmol/L (98-107); Glucose 78 mg/dL (74-99); Non-African American GFR(CKD) 85 (>60 ml/min/1.73 sqM); Potassium 4.3 mmol/L (3.5-5.1); Sodium 137 mmol/L (137-145); Total Bilirubin 0.6 mg/dL (0.2-1.3)
--- NOTE | 2020-03-11 08:21 | XR ---
EXAMINATION TYPE: XR abdomen 2V DATE OF EXAM: 03/11/2020 CLINICAL DATA: 54-year-old female ileus, [facility] COMPARISON: 03/10/2020 FINDINGS: Some mild strandy bibasilar atelectasis. No evidence for free intraperitoneal air. A couple prominent small bowel loops with air-fluid levels in the left mid abdomen are demonstrated. Moderate stool burden with air throughout the colon extending distally to the rectum. Overall decreas e in number and size of air-fluid levels. IMPRESSION: Overall decrease in size and number of air-fluid levels with a few residual small bowel air-fluid lev els in the left mid abdomen. Findings suggest partial interval improvement.
[2020-03-11] MEDS: GABAPENTIN 300 MG CAP PO SCH ×3 (09:49→20:25)
[2020-03-11] MEDS: lamoTRIgine 100 MG TAB PO SCH (09:49)
[2020-03-11] MEDS: buPROPion SR 100 MG TABLET.ER PO SCH ×2 (09:49→20:25)
[2020-03-11] MEDS: BALSALAZIDE DISODIUM 750 MG CAPSULE PO SCH ×3 (09:49→20:26)
[2020-03-11] MEDS: CYCLOBENZAPRINE 10 MG TAB PO SCH ×3 (09:49→20:25)
[2020-03-11] MEDS: PANTOPRAZOLE 40 MG/10 ML VIAL IVP SCH (09:49)
--- NOTE | 2020-03-11 14:42 | P.PN ---
Subjective Progress Note Date: 03/11/20 Principal diagnosis: patient is a pleasant 54-year-old female came in with complaints of abdominal pain for the midepigastric as well as bilateral upper quadrant abdominal pain had multiple episodes of nausea vomiting which started today pain is sharp in nature constant moderate severity patient had previous cholecystectomy appendectomy and hysterectomy. Patient is found to havehigh-grade ileus and there is a focal area of narrowing in the right lower quadrant without any ob vious focal transition point in the terminal EEG and was significantly dilated with fluid filled loops. There is also incidental finding of mild intrahepatic ductal dilatation although liver enzymes are essentially within normal limits 03/11/2020 Patient is seen and evaluated follow-up and continues to have severe abdominal discomfort in the mid epigastric area. She denies any nausea or vomiting and has been tolerating diet. Patient's liver functions were within normal limits today had increased. AST is 168, ALT is 240. White blood count improved and is 9.6. GI consulted and awaiting an MRCP. Surgery is following. Patient had a repeat abdominal x-ray today showing overall decrease in size and number of air- fluid levels with a few residual small bowel air-fluid levels in the left mid abdomen showing partial interval improvement. No reports of chest pain, shortness of breath, or palpitations. Patient is afebrile. No reports of nausea or vomiting and patient had been tolerating diet as mentioned previously. Patient is currently nothing by mouth for the MRCP. Objective - Vital Signs Vital signs: Vital Signs Temp 98.2 F 03/11/20 07:00 Pulse 77 03/11/20 07:00 Resp 19 03/11/20 07:00 BP 117/76 03/11/20 07:00 Pulse Ox 99 03/11/20 07:00 Intake & Output 03/10/20 03/11/20 03/11/20 18:59 06:59 18:59 Intake Total 400 Balance 400 Weight 77.111 kg Intake: Oral 400 Other: # Voids 1 - Exam GENERAL: The patient is alert and oriented x3, not in any acute distress. Well developed, well nourished. HEENT: Pupils are round and equally reacting to light. EOMI. No scleral icterus. No conjunctival pallor. Normocephalic, atraumatic. No pharyngeal erythema. No thyromegaly. CARDIOVASCULAR: S1 and S2 present. No murmurs, rubs, or gallops. PULMONARY: Chest is clear to auscultation, no wheezing or crackles. ABDOMEN: Soft, tenderness in the upper quadrants and epigastric area, nondistended, hyperactive bowel sounds. No palpable organomegaly. MUSCULOSKELETAL: No joint swelling or deformity. EXTREMITIES: No cyanosis, clubbing, or pedal edema. NEUROLOGICAL: Gross neurological examination did not reveal any focal deficits. SKIN: No rashes. - Labs CBC & Chem 7: 03/11/20 06:53 03/11/20 06:53 Labs: Abnormal Lab Results - Last 24 Hours (Table) 03/11/20 Range/Units 06:53 BUN 22 H (7-17) mg/dL AST 168 H (14-36) U/L ALT 240 H (4-34) U/L Alkaline Phosphatase 135 H (38-126) U/L Total Protein 6.0 L (6.3-8.2) g/dL Assessment and Plan Assessment: -possible small bowel obstruction: Patient currently tolerating clear liquids, surgery following, repeated abdominal x-ray shows some mild improvement, continue with IV fluids -Elevated liver enzymes: GI consulted and MRCP ordered -Possible peptic ulcer or gastritis: Patient attained on Protonix -COPD without any acute exacerbation -continued nicotine use nicotine cessation counseling was provided patient was started back on home medications -Fibromyalgia -DVT prophylaxis and early ambulation Plan: Patient undergo MRCP due to elevated liver functions, GI consulted. Patient will continue on IV fluids and may resume diet of clear liquids after MRCP. Continue with pain management. Will repeat a.m. labs. Further recommendations to follow. Possible discharge in 24 hours.
--- NOTE | 2020-03-11 15:09 | P.PN ---
Subjective Progress Note Date: 03/11/20 CHIEF COMPLAINT: Small bowel obstruction HISTORY OF PRESENT ILLNESS: Patient examined at the bedside. Patient reports her pain is tolerable. Patient is passing flatus. Abdominal x-ray completed this morning reveals overall decrease in size and number of air fluid levels with a few residual small bowel air-fluid levels in the left mid abdomen. Findings suggest partial interval improvement. Vital signs stable. She is afebrile. WBC improved from 23.2-9.6. AST 160. ALT 240. PHYSICAL EXAM: VITAL SIGNS: Reviewed. GENERAL: Well-developed in no acute distress. HEENT: No sclera icterus. Extraocular movements grossly intact. Moist buccal mucosa. Head is atraumatic, normocephalic. ABDOMEN: Soft. Mildly distended. Mild diffuse tenderness. NEUROLOGIC: Alert and oriented. Cranial nerves II through XII grossly intact. ASSESSMENT: 1. Abdominal pain 2. Small bowel obstruction versus ileus PLAN: Continue diet as tolerated GI consulted for elevated liver enzymes No surgical intervention recommended Nurse practitioner note has been reviewed by physician. Signing provider agrees with the documented findings, assessment, and plan of care. Objective - Vital Signs Vital signs: Vital Signs Temp 98.2 F 03/11/20 07:00 Pulse 77 03/11/20 07:00 Resp 19 03/11/20 07:00 BP 117/76 03/11/20 07:00 Pulse Ox 99 03/11/20 07:00 Intake & Output 03/10/20 03/11/20 03/11/20 18:59 06:59 18:59 Intake Total 400 Balance 400 Weight 77.111 kg Intake: Oral 400 Other: # Voids 1 - Labs CBC & Chem 7: 03/11/20 06:53 03/11/20 06:53 Labs: Abnormal Lab Results - Last 24 Hours (Table) 03/11/20 Range/Units 06:53 BUN 22 H (7-17) mg/dL AST 168 H (14-36) U/L ALT 240 H (4-34) U/L Alkaline Phosphatase 135 H (38-126) U/L Total Protein 6.0 L (6.3-8.2) g/dL
--- NOTE | 2020-03-11 16:53 | MR ---
EXAMINATION TYPE: MR MRCP DATE OF EXAM: 03/11/2020 COMPARISON: CT 03/10/2020 HISTORY: 54-year-old female Elevated LFT, small bowel obstruction Technique: Multiplanar, multisequence images of the abdomen were acquired. Highly T2 weighted sequenc es of the pancreatic or biliary system for MRCP. Rotational 3-D reconstructions generated on a [employer] workstation. FINDINGS: No focal liver lesion. The bile duct is mildly dilated at 1.1 cm status post cholecystectomy. Corresponding mild intrahepati c biliary ductal dilatation. The Main pancreatic duct is also dilated measuring up to 4 mm. It is seen to the level of the ampulla. No focal liver lesion by noncontrast MRI. No loss of signal on out of phase T1-weighted sequence to s uggest fatty infiltration. There may be a tiny hiatal hernia. Some surgical material is present at and just below the GE junctio n. Adrenal glands, spleen, and pancreas appear within normal limits. Bilateral renal cysts measuring up to 3.9 cm on the left and 9 mm on the right. No hydronephrosis. No upper abdominal ascites, lymphadenopathy, or gross bowel abnormality is seen There is a 2.4 cm air-filled diverticulum of the second portion of the duodenum projecting in the ant erior pancreatic head region. IMPRESSION: 1. Mild intrahepatic and extra hepatic biliary ductal dilatation with the bile duct measuring 1.1 cm. Findings may be secondary to postcholecystectomy status. Correlation with alkaline phosphatase and b ilirubin levels is needed. If values are elevated, consider ampullary stenosis as no choledocholithia sis is identified. 2. Mild dilatation of the main pancreatic duct as well as to 4 mm.
[2020-03-11 18:34] LABS: Hepatitis B Core IgM Non-Reactive (Non-Reactive); Hepatitis B Surface Antigen Non-Reactive (Non-Reactive); Hepatitis C IgG Antibody Non-Reactive (Non-Reactive)
[2020-03-11 18:35] LABS: Hepatitis A Antibody IgM Non-Reactive (Non-Reactive)
[2020-03-11] MEDS ORDERED: DULoxetine HCL 60 MG CAPSULE.DR PO SCH (21:00)
[2020-03-11] MEDS ORDERED: VERAPAMIL SR 180 MG TABLET.ER PO SCH (21:00)
[2020-03-11] MEDS ORDERED: ATORVASTATIN 10 MG TAB PO SCH (21:00)
[2020-03-11] MEDS ORDERED: QUEtiapine 100 MG TAB PO SCH (21:00)
[2020-03-12] MEDS: SODIUM CHLORIDE 0.9% 1,000 ML IV SCH (06:08)
[2020-03-12] MEDS: GABAPENTIN 300 MG CAP PO SCH (07:48)
[2020-03-12] MEDS: BALSALAZIDE DISODIUM 750 MG CAPSULE PO SCH (07:48)
[2020-03-12] MEDS: buPROPion SR 100 MG TABLET.ER PO SCH (07:48)
[2020-03-12] MEDS: PANTOPRAZOLE 40 MG/10 ML VIAL IVP SCH (07:48)
[2020-03-12] MEDS: CYCLOBENZAPRINE 10 MG TAB PO SCH (07:48)
[2020-03-12] MEDS: lamoTRIgine 100 MG TAB PO SCH (07:48)
[2020-03-12] MEDS: HYDROmorphone 0.5 MG/0.5 ML SYRINGE IVP PRN ×2 (07:49→13:47)
[2020-03-12 08:14] LABS: Basophils % (A) 1 %; Eosinophils # (A) 0.2 k/uL (0-0.7); Eosinophils % (A) 2 %; HCT 38.7 % (34.0-46.0); HGB 12.6 gm/dL (11.4-16.0); Lymphocytes # (A) 1.7 k/uL (1.0-4.8); Lymphocytes % (A) 18 %; MCH 30.3 pg (25.0-35.0); MCHC 32.6 g/dL (31.0-37.0); MCV 93.1 fL (80.0-100.0); Mean Platelet Volume 7.5; Monocytes # (A) 0.4 k/uL (0-1.0); Monocytes % (A) 5 %; Neutrophils % (A) 74 %; Platelet Count 198 k/uL (150-450); RBC 4.16 m/uL (3.80-5.40); RDW 13.1 % (11.5-15.5); WBC 9.5 k/uL (3.8-10.6)
[2020-03-12 08:50] LABS: ALT 139 U/L (4-34); AST 55 U/L (14-36); African American GFR (CKD) >90 (>60 ml/min/1.73 sqM); Albumin 3.4 g/dL (3.5-5.0); Alkaline Phosphatase 123 U/L (38-126); Anion Gap 5 mmol/L; Blood Urea Nitrogen 16 mg/dL (7-17); Calcium 8.6 mg/dL (8.4-10.2); Carbon Dioxide 25 mmol/L (22-30); Chloride 109 mmol/L (98-107); Glucose 85 mg/dL (74-99); Non-African American GFR(CKD) >90 (>60 ml/min/1.73 sqM); Potassium 4.1 mmol/L (3.5-5.1); Sodium 139 mmol/L (137-145); Total Bilirubin 0.5 mg/dL (0.2-1.3); Total Protein 5.6 g/dL (6.3-8.2)
--- NOTE | 2020-03-12 12:26 | P.PN ---
Subjective Progress Note Date: 03/12/20 CHIEF COMPLAINT: Small bowel obstruction HISTORY OF PRESENT ILLNESS: Patient examined at the bedside. Patient reports her pain is tolerable. Patient is passing flatus. Denies having a bowel movement. She is tolerating clear liquids. PHYSICAL EXAM: VITAL SIGNS: Reviewed. GENERAL: Well-developed in no acute distress. HEENT: No sclera icterus. Extraocular movements grossly intact. Moist buccal mucosa. Head is atraumatic, normocephalic. ABDOMEN: Soft. Mildly distended. Mild diffuse tenderness. NEUROLOGIC: Alert and oriented. Cranial nerves II through XII grossly intact. ASSESSMENT: 1. Abdominal pain 2. Small bowel obstruction versus ileus PLAN: Advance diet No surgical intervention recommended Stable for discharge home today from a surgical standpoint. We will sign off. Please reconsult if needed. Nurse practitioner note has been reviewed by physician. Signing provider agrees with the documented findings, assessment, and plan of care. Objective - Vital Signs Vital signs: Vital Signs Temp 98.4 F 03/12/20 07:00 Pulse 73 03/12/20 07:00 Resp 18 03/12/20 07:00 BP 124/72 03/12/20 07:00 Pulse Ox 97 03/12/20 07:00 Intake & Output 03/11/20 03/12/20 03/12/20 18:59 06:59 18:59 Intake Total 540 600 Balance 540 600 Intake: IV 600 Sodium Chloride 0.9% 1, 600 000 ml @ 75 mls/hr IV . [id number] RACHEL Rx#:[id number] Oral 540 Other: # Voids 3 1 - Labs CBC & Chem 7: 03/12/20 07:39 03/12/20 07:39 Labs: Abnormal Lab Results - Last 24 Hours (Table) 03/12/20 Range/Units 07:39 Chloride 109 H (98-107) mmol/L AST 55 H (14-36) U/L ALT 139 H (4-34) U/L Total Protein 5.6 L (6.3-8.2) g/dL Albumin 3.4 L (3.5-5.0) g/dL
--- NOTE | 2020-03-12 13:01 | P.CONS ---
History of Present Illness - Reason for Consult Consult date: 03/11/20 Elevated liver enzymes Requesting physician: Noemi Bang - Chief Complaint Abdominal pain - History of Present Illness 54-year-old female with a medical history significant for asthma, fibromyalgia, reported history of ulcerative colitis on 5ASA therapy, GERD and a history of peptic ulcer disease who presented to the hospital with complaints of abdominal pain. The patient describes pain as. Umbilical and worsening in intensity prior to presentation. Pain is described as sharp and worse in the left abdomen. She does report nausea and vomiting with the episodes of pain but is currently only nauseated. She reports a regular bowel movement yesterday and d oes report passing flatus today. Patient has a history of multiple intra- abdominal surgeries including cholecystectomy, appendectomy and hysterectomy. On presentation yesterday she did have findings suggestive of a small bowel obstruction with improvement on x-ray today. She did have a mild elevation in liver enzymes today with a total bilirubin 0.6, alkaline phosphatase 135, AST 240 and ALT 135 with a WBC of 4.6, hemoglobin 13.2 and platelet count of 222,000. Review of Systems REVIEW OF SYSTEMS: CONSTITUTIONAL: Denies any fevers, chills, weight change or fatigue. CARDIOVASCULAR: Denies any chest pain, palpitations high or low blood pressures RESPIRATORY: Denies any shortness of breath, hemoptysis or cough. GENITOURINARY: No dysuria or hematuria. MUSCULOSKELETAL: No weakness reported. SKIN: Denies any new rashes or lesions, jaundice or pallor. PSYCHIATRIC: Denies any depression or anxiety. NEUROLOGY: Denies headache, denies any new focal deficits. EARS/NOSE/THROAT: No recent hearing change, congestion, nasal discharge or sore throat. EYES: No pain in eyes, discharge or change in vision. GASTROINTESTINAL: As per HPI. 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 History of Any Multi-Drug Resistant Organisms: C-DIFF Year Discovered:: MDRO Source:: stool Past Surgical History: Appendectomy, Cholecystectomy, Hysterectomy, Orthopedic Surgery, Tubal Ligation, Uterine Ablation Additional Past Surgical History / Comment(s): carpel tunnel to left, ganglion cyst, SYED FUNDOPLASTY Past Anesthesia/Blood Transfusion Reactions: No Reported Reaction Past Psychological History: Anxiety, Depression Smoking Status: Current some day smoker - Past Family History Mother Family Medical History: No Reported History Medications and Allergies Home Medications Medication Instructions Recorded Confirmed Type Albuterol Inhaler (Mhu) [Ventolin 1 puff INHALATION RT-QID PRN 02/10/16 03/10/20 History Hfa Inhaler (Mhu)] Gabapentin [Neurontin] 600 mg PO TID 02/10/16 03/10/20 History Simvastatin [Zocor] 20 mg PO HS 02/10/16 03/10/20 History DULoxetine HCL [Cymbalta] 60 mg PO HS 12/04/16 03/10/20 History Melatonin 5 mg PO HS PRN 12/24/16 03/10/20 History Verapamil HCl [Verapamil ER] 180 mg PO HS 04/10/17 03/10/20 History HYDROcodone/APAP 7.5-325MG [[place] 1 tab PO BID PRN 01/02/18 03/10/20 History 7.5-325] Naproxen 500 mg PO BID 01/02/18 03/10/20 History SUMAtriptan SUCCINATE [Imitrex] 50 mg PO DAILY PRN 01/02/18 03/10/20 History Cholecalciferol [Vitamin D3 (25 2,000 unit PO DAILY 03/10/20 03/10/20 History Mcg = 1000 Iu)] Cyanocobalamin (Vitamin B-12) 2,500 mcg PO DAILY 03/10/20 03/10/20 History [Vitamin B-12] Cyclobenzaprine [Flexeril] 10 mg PO TID 03/10/20 03/10/20 History Evening [place] Oil 1,000 mg PO BID 03/10/20 03/10/20 History Galcanezumab-Gnlm [Emgality Pen] 120 mg SQ Q28D 03/10/20 03/10/20 History Glucosamine/Chondr Watters A Sod [Osteo 1 tab PO DAILY 03/10/20 03/10/20 History Bi-Flex Caplet] L.acidoph,Paracasei, B.lactis 1 cap PO DAILY 03/10/20 03/10/20 History [Probiotic] Mesalamine [Mesalamine ER] 1.5 gm PO DAILY 03/10/20 03/10/20 History QUEtiapine [SEROquel] 100 mg PO HS 03/10/20 03/10/20 History buPROPion HCL [buPROPion HCL ER] 200 mg PO BID 03/10/20 03/10/20 History lamoTRIgine [LaMICtal] 100 mg PO DAILY 03/10/20 03/10/20 History Allergies Allergy/AdvReac Type Severity Reaction Status Date / Time venom-honey bee Allergy Severe Anaphylaxis Verified 03/10/20 14:07 [bee venom (honey bee)] coconut oil Allergy Unknown Rash/Hives Verified 03/10/20 14:07 Hops plant Allergy projectile Uncoded 03/10/20 10:28 vomiting Physical Exam Vitals: Vital Signs Temp Pulse Pulse Resp BP BP Pulse Ox 03/11/20 07:00 98.2 F 77 19 117/76 99 03/11/20 02:00 98.8 F 79 109/68 98 03/10/20 20:00 98.3 F 90 16 123/55 98 03/10/20 14:50 98.2 F 94 18 120/82 97 03/10/20 12:15 98 18 121/83 98 Intake and Output 03/10/20 03/11/20 03/11/20 22:59 06:59 14:59 Intake Total 400 Balance 400 Intake: Oral 400 Other: # Voids 3 1 On physical examination, patient appears comfortable in no apparent distress. HEAD: Normocephalic, atraumatic. EYES: No scleral icterus. No conjunctival injection. MOUTH: No lesions, tongue midline. NECK: Trachea midline, no gross abnormalities. CHEST: Clear to auscultation with no wheezing or rhonchi appreciated. HEART: Regular rate and rhythm. ABDOMEN: Soft, moderately tender to palpation. Bowel sounds are positive. No organomegaly. No guarding or rigidity. EXTREMITIES: No pedal edema. SKIN: No rashes, no jaundice. NEUROLOGIC: Alert and oriented x3. No focal deficits. Results CBC & Chem 7: 03/12/20 07:39 03/12/20 07:39 Labs: Abnormal Lab Results - Last 24 Hours (Table) 03/10/20 03/11/20 Range/Units 10:55 06:53 BUN 22 H (7-17) mg/dL AST 168 H (14-36) U/L ALT 240 H (4-34) U/L Alkaline Phosphatase 135 H (38-126) U/L Total Protein 6.0 L (6.3-8.2) g/dL Urine Appearance Cloudy H (Clear) Urine Protein Trace H (Negative) Amorphous Sediment Rare H (None) /hpf Urine Mucus Rare H (None) /hpf CT scan - abdomen: report reviewed (Computed tomography scan of the abdomen with new mild intra-and extrahepatic biliary dilation and pancreatic duct dilation.) Assessment and Plan (1) Abdominal pain Narrative/Plan: 54-year-old female presented to the hospital with complaints of abdominal pain, nausea and vomiting. Patient felt a small bowel obstruction. Also incidentally found to have mild intra-and extrahepatic biliary dilation and mild dilation of the pancreatic duct on computed tomography scan of the abdomen with mildly elevated liver enzymes predominantly in a hepatocellular pattern. Unknown etiology. Suspect elevation in liver enzymes secondary to dehydration and hypoperfusion of the liver. Current Visit: Yes Status: Acute Code(s): R10.9 - UNSPECIFIED ABDOMINAL PAIN SNOMED Code(s): 94101682 (2) Nausea & vomiting Current Visit: Yes Status: Acute Code(s): R11.2 - NAUSEA WITH VOMITING, UNSPECIFIED SNOMED Code(s): 91090768 (3) Small bowel obstruction Current Visit: Yes Status: Acute Code(s): K56.609 - UNSP INTESTNL OBST, UNSP TO PARTIAL VERSUS COMPLETE OBST SNOMED Code(s): 079809726 Plan: Supportive care Clear liquid diet Continue to monitor clinically MRCP ordered for further evaluation of the pancreas and biliary system Continue to monitor CBC, BMP, LFTs Appreciate recommendations from surgical service Thank you for allowing us to participate in the care of the patient
[2020-03-12 14:40] VITALS: BP 134/84; PULSE 91; RESP 15; TEMP 98.9
--- NOTE | 2020-03-13 13:21 | P.DS ---
Providers Date of admission: 03/10/20 13:53 Expected date of discharge: 03/12/20 Attending physician: Noemi Bang Consults: 03/11/20 08:59 Consult Physician Stat Consulting Provider: Yogi Francois Reason/Comments: elevated LFTs Do you want consulting provider notified?: Yes Primary care physician: [facility] Course: Final Diagnosis -possible small bowel obstruction, ruled out -Elevated liver enzymes, approved -Possible peptic ulcer or gastritis -COPD without any acute exacerbation -continued nicotine dependence -Fibromyalgia -DVT prophylaxis Discharge disposition Patient is being discharged in a stable condition with guarded prognosis to [facility] for continued rehab. Patient will follow-up with primary care provider in the outpatient setting. Total time taken is 35 minutes. History of present illness This is a 54-year-old female who was recently admitted with midepigastric abdominal pain along with bilateral upper quadrant abdominal pain and multiple episodes of nausea and vomiting and was being closely monitored. Patient's LFTs were initially normal although repeat labs showed an elevation and patient underwent MRCP and was evaluated by GI showing mild intrahepatic and extrahepatic biliary ductal dilatation with bile duct measuring 1.1 cm most likely secondary to postcholecystectomy status along with mild dilatation of the main pancreatic duct up to 4 mm. Patient was also evaluated by surgery recommending no surgical interventions at this time. Discussed with the patient about decreasing amount of narcotic pain medication that she is currently on. Patient will need to follow-up with primary care provider in the outpatient setting. Liver functions improved today and patient is tolerating diet with no reports of nausea or vomiting. Patient continues to have some abdominal tenderness all states has improved since yesterday. She is passing gas with no recent bowel movement since yesterday. Currently no reports of chest pain, palpitations, or shortness of breath. Patient is afebrile. No reports of nausea or vomiting and patient is tolerating diet. On exam vital signs are stable. Temp is 98.9 F, pulse is 91, respirations are 15, blood pressure 134/84, oxygen saturation is 97% on room air. Cardio S1, S2 are present. Respiratory shows clear to auscultation. Abdomen is soft and mild tenderness noted palpation. Nervous system shows no focal deficits. Please refer to medication reconciliation sheet for a list of medications. Patient Condition at Discharge: Stable Plan - Discharge Summary Discharge Rx Participant: No New Discharge Prescriptions: Continue Simvastatin [Zocor] 20 mg PO HS Albuterol Inhaler (Mhu) [Ventolin Hfa Inhaler (Mhu)] 1 puff INHALATION RT-QID PRN PRN Reason: Dyspnea Gabapentin [Neurontin] 600 mg PO TID DULoxetine HCL [Cymbalta] 60 mg PO HS Melatonin 5 mg PO HS PRN PRN Reason: Insomnia Verapamil HCl [Verapamil ER] 180 mg PO HS SUMAtriptan SUCCINATE [Imitrex] 50 mg PO DAILY PRN PRN Reason: migraines HYDROcodone/APAP 7.5-325MG [[place] 7.5-325] 1 tab PO BID PRN PRN Reason: Pain Naproxen 500 mg PO BID Glucosamine/Chondr Watters A Sod [Osteo Bi-Flex Caplet] 1 tab PO DAILY Cyanocobalamin (Vitamin B-12) [Vitamin B-12] 2,500 mcg PO DAILY Cholecalciferol [Vitamin D3 (25 Mcg = 1000 Iu)] 2,000 unit PO DAILY Evening [place] Oil 1,000 mg PO BID buPROPion HCL [buPROPion HCL ER] 200 mg PO BID lamoTRIgine [LaMICtal] 100 mg PO DAILY QUEtiapine [SEROquel] 100 mg PO HS Galcanezumab-Gnlm [Emgality Pen] 120 mg SQ Q28D Cyclobenzaprine [Flexeril] 10 mg PO TID Mesalamine [Mesalamine ER] 1.5 gm PO DAILY L.acidoph,Paracasei, B.lactis [Probiotic] 1 cap PO DAILY Discharge Medication List Albuterol Inhaler (Mhu) [Ventolin Hfa Inhaler (Mhu)] 1 puff INHALATION RT-QID PRN 02/10/16 [History] Gabapentin [Neurontin] 600 mg PO TID 02/10/16 [History] Simvastatin [Zocor] 20 mg PO HS 02/10/16 [History] DULoxetine HCL [Cymbalta] 60 mg PO HS 12/04/16 [History] Melatonin 5 mg PO HS PRN 12/24/16 [History] Verapamil HCl [Verapamil ER] 180 mg PO HS 04/10/17 [History] HYDROcodone/APAP 7.5-325MG [[place] 7.5-325] 1 tab PO BID PRN 01/02/18 [History] Naproxen 500 mg PO BID 01/02/18 [History] SUMAtriptan SUCCINATE [Imitrex] 50 mg PO DAILY PRN 01/02/18 [History] Cholecalciferol [Vitamin D3 (25 Mcg = 1000 Iu)] 2,000 unit PO DAILY 03/10/20 [History] Cyanocobalamin (Vitamin B-12) [Vitamin B-12] 2,500 mcg PO DAILY 03/10/20 [History] Cyclobenzaprine [Flexeril] 10 mg PO TID 03/10/20 [History] Evening [place] Oil 1,000 mg PO BID 03/10/20 [History] Galcanezumab-Gnlm [Emgality Pen] 120 mg SQ Q28D 03/10/20 [History] Glucosamine/Chondr Watters A Sod [Osteo Bi-Flex Caplet] 1 tab PO DAILY 03/10/20 [History] L.acidoph,Paracasei, B.lactis [Probiotic] 1 cap PO DAILY 03/10/20 [History] Mesalamine [Mesalamine ER] 1.5 gm PO DAILY 03/10/20 [History] QUEtiapine [SEROquel] 100 mg PO HS 03/10/20 [History] buPROPion HCL [buPROPion HCL ER] 200 mg PO BID 03/10/20 [History] lamoTRIgine [LaMICtal] 100 mg PO DAILY 03/10/20 [History] Follow up Appointment(s)/Referral(s): Holly Jaffe DO [Primary Care Provider] - 03/16/20 1:00 pm (This appointment is scheduled for [place] office [address] [place] [id number]) Davin Clark MD [STAFF PHYSICIAN] - 1 Week Patient Instructions/Handouts: Abdominal Pain (ED) Activity/Diet/Wound Care/Special Instructions: Activity Limited until follow-up Continue current diet and advance slowly as tolerated Follow-up with primary care provider upon discharge Follow-up with GI in the outpatient setting Discharge Disposition: HOME SELF-CARE
== END 2020-03-12 16:10 | disposition home or self-care (01) | DRG 384 ==
LOC: EC 10:18 → 4SSUR 13:53
PROVIDERS: ADMIT Internal Medicine; ATTEND Internal Medicine
DX: K27.9 Peptic ulcer, site unspecified, unspecified as acute or chronic, without hemorrhage or perforation (principal); K56.600 Partial intestinal obstruction, unspecified as to cause; K51.90 Ulcerative colitis, unspecified, without complications; K86.89 Other specified diseases of pancreas; Z11.59 Encounter for screening for other viral diseases; J44.9 Chronic obstructive pulmonary disease, unspecified; K29.70 Gastritis, unspecified, without bleeding; M19.90 Unspecified osteoarthritis, unspecified site; G43.909 Migraine, unspecified, not intractable, without status migrainosus; F41.9 Anxiety disorder, unspecified; M79.7 Fibromyalgia; F32.9 Major depressive disorder, single episode, unspecified; F17.210 Nicotine dependence, cigarettes, uncomplicated; R74.8 Abnormal levels of other serum enzymes; K21.9 Gastro-esophageal reflux disease without esophagitis; E86.0 Dehydration; Z71.6 Tobacco abuse counseling; Z79.899 Other long term (current) drug therapy; Z79.1 Long term (current) use of non-steroidal anti-inflammatories (NSAID); Z90.710 Acquired absence of both cervix and uterus; Z90.49 Acquired absence of other specified parts of digestive tract; Z87.442 Personal history of urinary calculi; Z98.890 Other specified postprocedural states; Z91.030 Bee allergy status; Z91.018 Allergy to other foods
CPT/HCPCS: 36415; 74018; 74019; 74177; 74181; 80053; 80074; 81001; 82150; 83690; 85025; 85027; 93005; 96361; 96374; 96375; 99285

== ENCOUNTER → 2020-05-18 | Outpatient (CLI) | payer MEDICARE, OTHER ==
--- NOTE | 2020-05-18 10:50 | FL ---
EXAMINATION TYPE: FL barium swallow DATE OF EXAM: 05/18/2020 CLINICAL HISTORY: History of Memo fundoplication surgery 4 years ago with recurrent dysphagia. TECHNIQUE: A single contrast esophagram is performed utilizing barium given patient's history of mukul or surgery. A total of 41 seconds of fluoroscopic time was utilized during procedure. 34 spot images saved to PACS. COMPARISON: None FINDINGS: Exam noted suboptimal due to machine error, difficulty visualizing and saving pictures. The esophagus shows significant dysmotility with abnormal secondary and tertiary contractions and delaye d emptying into the stomach. No evidence of recurrent hiatal hernia or stricture noted. No significan t gastroesophageal reflux was seen during real time performance of this study. IMPRESSION: Suboptimal study with visualization of moderate to severe underlying esophageal dysmotili ty and/or achalasia. No recurrent hernia.
== END | disposition home or self-care (01) ==
LOC: RADUSWWP 09:46
PROVIDERS: ATTEND Surgery
DX: R13.19 Other dysphagia (principal)
CPT/HCPCS: 74220

== ENCOUNTER 2020-05-21 10:01 | Day surgery (SDC) | payer MEDICARE, OTHER ==
[2020-05-19 09:28] VITALS: BMI 29.5
[~2020-05-21 10:01] MED LIST changes: -LIDOCAINE 1% 20 ML VIAL (10MG/ML) FOR IV START INTRADERMA PRN; +ONDANSETRON 4 MG/2 ML VIAL IVP PRN
[2020-05-21 10:41] VITALS: RESP 16; TEMP 97.4
[2020-05-21] MEDS ORDERED: LIDOCAINE 1% INJ 10MG/ML (20 ML MDV) ONE (11:13)
[2020-05-21] MEDS ORDERED: GLYCOPYRROLATE 0.2 MG/ML 2 ML VIAL ONE (11:13)
[2020-05-21] MEDS ORDERED: PROPOFOL 10 MG/ML 20 ML VIAL IV ONE (11:13)
--- NOTE | 2020-05-21 11:16 | P.GSHP ---
History of Present Illness H&P Date: 05/21/20 Chief Complaint: Dysphagia This a 54-year-old female who presents today for EGD. Patient has had issues with dysphagia. 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 Currently "esophagus is twisted causing difficulty swallowing and nausea." History of Any Multi-Drug Resistant Organisms: C-DIFF Date of last positivie culture/infection: MDRO Source:: stool Past Surgical History: Appendectomy, Cholecystectomy, Hysterectomy, Orthopedic Surgery, Tubal Ligation, Uterine Ablation Additional Past Surgical History / Comment(s): Left carpel tunnel surgery, ganglion cyst removed, SYED FUNDOPLASTY for Hiatal Hernia. Past Anesthesia/Blood Transfusion Reactions: No Reported Reaction Past Psychological History: Anxiety, Depression Smoking Status: Former smoker Past Alcohol Use History: Rare Additional Past Alcohol Use History / Comment(s): Quit smoking 02-17-15, smoked on & off for 30 yrs. Past Drug Use History: Marijuana Additional Drug Use History / Comment(s): Uses marijuana daily, aware no use 24 hrs prior to procedure. - Past Family History Mother Family Medical History: No Reported History Medications and Allergies Home Medications Medication Instructions Recorded Confirmed Type Albuterol Inhaler (Mhu) [Ventolin 1 puff INHALATION RT-QID PRN 02/10/16 05/21/20 History Hfa Inhaler (Mhu)] Gabapentin [Neurontin] 600 mg PO TID 02/10/16 05/21/20 History Simvastatin [Zocor] 20 mg PO HS 02/10/16 05/21/20 History DULoxetine HCL [Cymbalta] 60 mg PO HS 12/04/16 05/21/20 History Melatonin 5 mg PO HS PRN 12/24/16 05/21/20 History Verapamil HCl [Verapamil ER] 180 mg PO HS 04/10/17 05/21/20 History HYDROcodone/APAP 7.5-325MG [[place] 1 tab PO BID PRN 01/02/18 05/21/20 History 7.5-325] Naproxen 500 mg PO BID 01/02/18 05/21/20 History SUMAtriptan SUCCINATE [Imitrex] 50 mg PO DAILY PRN 01/02/18 05/21/20 History Cholecalciferol [Vitamin D3 (25 2,000 unit PO DAILY 03/10/20 05/21/20 History Mcg = 1000 Iu)] Cyanocobalamin (Vitamin B-12) 2,500 mcg PO DAILY 03/10/20 05/21/20 History [Vitamin B-12] Cyclobenzaprine [Flexeril] 10 mg PO TID 03/10/20 05/21/20 History Evening [place] Oil 1,000 mg PO BID 03/10/20 05/21/20 History Galcanezumab-Gnlm [Emgality Pen] 120 mg SQ Q28D 03/10/20 05/21/20 History Glucosamine/Chondr Watters A Sod [Osteo 1 tab PO DAILY 03/10/20 05/21/20 History Bi-Flex Caplet] L.acidoph,Paracasei, B.lactis 1 cap PO DAILY 03/10/20 05/21/20 History [Probiotic] Mesalamine [Mesalamine ER] 1.5 gm PO DAILY 03/10/20 05/21/20 History buPROPion HCL [buPROPion HCL ER] 200 mg PO BID 03/10/20 05/21/20 History lamoTRIgine [LaMICtal] 100 mg PO DAILY 03/10/20 05/21/20 History Allergies Allergy/AdvReac Type Severity Reaction Status Date / Time venom-honey bee Allergy Severe Anaphylaxis Verified 05/21/20 10:36 [bee venom (honey bee)] coconut oil Allergy Unknown Rash/Hives Verified 05/21/20 10:36 Hops plant Allergy projectile Uncoded 05/21/20 10:36 vomiting Surgical - Exam Vital Signs Temp Pulse Resp BP Pulse Ox 97.4 F L 88 16 155/87 97 05/21/20 10:34 05/21/20 10:34 05/21/20 10:34 05/21/20 10:34 05/21/20 10:34 - General well developed, well nourished, no distress - Eyes PERRL - ENT normal pinna - Neck no masses - Respiratory normal expansion - Cardiovascular Rhythm: regular - Abdomen Abdomen: soft, non tender Assessment and Plan Assessment: Dysphagia. We'll perform EGD.
--- NOTE | 2020-05-21 11:22 | P.OP ---
Date of Procedure: 05/21/20 Preoperative Diagnosis: Dysphagia Postoperative Diagnosis: Antral gastritis No evidence of hiatal hernia Procedure(s) Performed: EGD Anesthesia: MAC Surgeon: Dvain Clark Pathology: other (Antrum) Condition: stable Disposition: PACU Description of Procedure: The patient's placed on the endoscopy table in the lateral position. She received IV sedation. The gastroscope placed oropharynx and passed in the esophagus and into the stomach. Scope was then placed through the pylorus. The first and second portion of the duodenum appeared normal. Scope was then brought back the antrum and this appeared mildly inflamed. A biopsies performed. The scope was then retroflexed and remainder of the stomach appeared normal. There was no significant hiatal hernia. The GE junction was at 40 cm. The distal esophagus appeared normal. The proximal esophagus appeared normal. Scope was withdrawn for patient.
[2020-05-21 11:45] VITALS: BP 126/68; PULSE 85
== END 2020-05-21 11:54 | disposition home or self-care (01) ==
LOC: ORWHC2ENDO 10:01
PROVIDERS: ATTEND Surgery
DX: K29.50 Unspecified chronic gastritis without bleeding (principal); J44.9 Chronic obstructive pulmonary disease, unspecified; M79.7 Fibromyalgia; E78.5 Hyperlipidemia, unspecified; M19.90 Unspecified osteoarthritis, unspecified site; G43.909 Migraine, unspecified, not intractable, without status migrainosus; G58.8 Other specified mononeuropathies; K51.90 Ulcerative colitis, unspecified, without complications; F41.9 Anxiety disorder, unspecified; F32.9 Major depressive disorder, single episode, unspecified; M54.2 Cervicalgia; F17.210 Nicotine dependence, cigarettes, uncomplicated; Z87.442 Personal history of urinary calculi; Z87.11 Personal history of peptic ulcer disease; Z86.19 Personal history of other infectious and parasitic diseases; Z90.49 Acquired absence of other specified parts of digestive tract; Z90.710 Acquired absence of both cervix and uterus; Z98.890 Other specified postprocedural states; Z98.51 Tubal ligation status; Z86.69 Personal history of other diseases of the nervous system and sense organs; Z87.19 Personal history of other diseases of the digestive system; Z79.899 Other long term (current) drug therapy; Z79.891 Long term (current) use of opiate analgesic; Z91.030 Bee allergy status; Z91.018 Allergy to other foods; Z91.09 Other allergy status, other than to drugs and biological substances
CPT/HCPCS: 88305; 43239; J2001; J2704

== ENCOUNTER 2021-02-26 10:19 | Observation (INO) | payer MEDICARE, OTHER ==
[2021-02-26] MEDS ORDERED: MORPHINE SULFATE 4 MG/ML SYRINGE IV STA (10:54)
[2021-02-26] MEDS ORDERED: ONDANSETRON 4 MG/2 ML VIAL IVP STA (10:54)
[2021-02-26] MEDS ORDERED: ASPIRIN 81 MG PO STA (10:54)
[2021-02-26 11:31] LABS: Basophils # (A) 0.1 k/uL (0-0.2); Basophils % (A) 0 %; Eosinophils # (A) 0.2 k/uL (0-0.7); Eosinophils % (A) 1 %; HCT 44.4 % (34.0-46.0); Lymphocytes # (A) 1.5 k/uL (1.0-4.8); Lymphocytes % (A) 10 %; MCH 30.3 pg (25.0-35.0); MCHC 33.7 g/dL (31.0-37.0); MCV 89.8 fL (80.0-100.0); Mean Platelet Volume 7.7; Monocytes # (A) 0.5 k/uL (0-1.0); Monocytes % (A) 3 %; Neutrophils # (A) 12.4 k/uL (1.3-7.7); Neutrophils % (A) 85 %; Platelet Count 270 k/uL (150-450); RBC 4.95 m/uL (3.80-5.40); RDW 13.1 % (11.5-15.5); WBC 14.7 k/uL (3.8-10.6)
[2021-02-26 11:41] LABS: Albumin 4.9 g/dL (3.5-5.0); Calcium 10.2 mg/dL (8.4-10.2); Magnesium 2.1 mg/dL (1.6-2.3); Total Bilirubin 0.5 mg/dL (0.2-1.3); Total Protein 7.2 g/dL (6.3-8.2)
[2021-02-26 11:51] LABS: Potassium 4.1 mmol/L (3.5-5.1)
[2021-02-26 12:00] LABS: INR 0.9 (<1.2); Prothrombin Time 9.4 sec (9.0-12.0)
[2021-02-26 12:01] LABS: Partial Thromboplastin Time 21.4 sec (22.0-30.0)
--- NOTE | 2021-02-26 12:16 | ED ---
Chest Pain HPI - General Chief Complaint: Chest Pain Stated Complaint: Chest pain/head ache Time Seen by Provider: 02/26/21 10:37 Source: patient Mode of arrival: ambulatory Limitations: no limitations - History of Present Illness Initial Comments: Patient is a 55-year-old female, with history of COPD, fibromyalgia, awake, presenting to the emergency Department with complaints of lower chest and abdomen pain that started suddenly this morning. She currently rates it a 10/10. She states she is very nauseous, she is diaphoretic as well. She denies any recent fevers or chills. She denies a heart history. She states yesterday she felt her normal self, she's been eating and drinking as normal. She denies any falls or trauma. She is an occasional smoker, denies drug use other than marijuana for pain control. She denies any shortness of breath. He has been taking her medications as prescribed. She states she did take a [place] prior to arrival, she takes this for chronic pain. She has no further complaints at this time. Upon arrival to the ER, vital signs are stable. - Related Data Home Medications Medication Instructions Recorded Confirmed Simvastatin [Zocor] 20 mg PO HS 02/10/16 02/26/21 DULoxetine HCL [Cymbalta] 60 mg PO HS 12/04/16 02/26/21 Melatonin 5 mg PO HS PRN 12/24/16 02/26/21 Verapamil HCl [Verapamil ER] 180 mg PO HS 04/10/17 02/26/21 HYDROcodone/APAP 7.5-325MG [[place] 1 tab PO TID PRN 01/02/18 02/26/21 7.5-325] SUMAtriptan SUCCINATE [Imitrex] 50 mg PO DAILY PRN 01/02/18 02/26/21 Cyanocobalamin (Vitamin B-12) 2,500 mcg PO DAILY 03/10/20 02/26/21 [Vitamin B-12] Cyclobenzaprine [Flexeril] 10 mg PO TID 03/10/20 02/26/21 Evening [place] Oil 1,000 mg PO BID 03/10/20 02/26/21 Galcanezumab-Gnlm [Emgality Pen] 120 mg SQ Q28D 03/10/20 02/26/21 Glucosamine/Chondr [place] A Sod [[place] 1 tab PO DAILY 03/10/20 02/26/21 Bi-Flex Caplet] L.acidoph,Paracasei, B.lactis 1 cap PO DAILY 03/10/20 02/26/21 [Probiotic] buPROPion HCL [buPROPion HCL ER] 200 mg PO BID 03/10/20 02/26/21 lamoTRIgine [LaMICtal] 100 mg PO DAILY 03/10/20 02/26/21 Albuterol Sulfate [Ventolin HFA] 1 - 2 puff INHALATION RT-Q6H PRN 02/26/21 02/26/21 Cholecalciferol [Vitamin D3 (25 50 mcg PO DAILY 02/26/21 02/26/21 Mcg = 1000 Iu)] Dexlansoprazole [Dexilant] 60 mg PO DAILY 02/26/21 02/26/21 Fluticasone/Salmeterol [Advair Hfa 2 puff INHALATION RT-BID 02/26/21 02/26/21 115-21 Mcg Inhaler] Gabapentin 600 mg PO TID 02/26/21 02/26/21 Mesalamine [Lialda] 1.2 gm PO BID 02/26/21 02/26/21 traZODone HCL [Desyrel] 100 mg PO HS 02/26/21 02/26/21 Allergies Allergy/AdvReac Type Severity Reaction Status Date / Time venom-honey bee Allergy Severe Anaphylaxis Verified 05/21/20 10:36 [bee venom (honey bee)] coconut oil Allergy Unknown Rash/Hives Verified 05/21/20 10:36 Hops plant Allergy projectile Uncoded 05/21/20 10:36 vomiting Review of Systems ROS Statement: Those systems with pertinent positive or pertinent negative responses have been documented in the HPI. ROS Other: All systems not noted in ROS Statement are negative. EKG Findings - EKG Comments: EKG Findings:: Normal sinus rhythm, normal ECG, no signs of an acute process. This is similar to her previous on 03/10/2020. Ventricular rate 73, MI interval 176, QTC 418. 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 History of Any Multi-Drug Resistant Organisms: C-DIFF Date of last positivie culture/infection: MDRO Source:: stool Past Surgical History: Appendectomy, Cholecystectomy, Hysterectomy, Orthopedic Surgery, Tubal Ligation, Uterine Ablation Additional Past Surgical History / Comment(s): carpel tunnel to left, ganglion cyst, SYED FUNDOPLASTY Past Anesthesia/Blood Transfusion Reactions: No Reported Reaction Past Psychological History: Anxiety, Depression Smoking Status: Current every day smoker Past Alcohol Use History: Rare Past Drug Use History: Marijuana - Past Family History Mother Family Medical History: No Reported History General Exam - General Exam Comments Initial Comments: GENERAL: Patient is well-developed and well-nourished. Patient is nontoxic, slightly diaphoretic, and mild distress. HEAD: Atraumatic, normocephalic. EYES: Pupils equal round and reactive to light, extraocular movements intact, sclera anicteric, conjunctiva are normal. Eyelids were unremarkable. ENT: TMs normal, nares patent, oropharynx clear without exudates. Moist mucous membranes. NECK: Normal range of motion, supple without lymphadenopathy or JVD. LUNGS: Unlabored respirations. Breath sounds clear to auscultation bilaterally and equal. No wheezes rales or rhonchi. HEART: Regular rate and rhythm without murmurs, rubs or gallops. ABDOMEN: Soft, upper abdomen pain but tender all over her abdomen, normoactive bowel sounds. No guarding, no rebound. No masses appreciated. : Deferred MUSCULOSKELETAL: Normal extremities with adequate strength and normal range of motion, no pitting or edema. No clubbing or cyanosis. NEUROLOGICAL: Patient is alert and oriented x 3. Motor and sensory are also intact. Cranial nerves II through XII grossly intact. Symmetrical smile. Normal speech, normal gait. PSYCH: Normal mood, normal affect. SKIN: Warm, Dry, normal turgor, no rashes or lesions noted. Limitations: no limitations Course Vital Signs 02/26/21 02/26/21 02/26/21 10:24 11:30 12:00 Temperature 99.1 F Pulse Rate 70 67 89 Respiratory 18 22 18 Rate Blood Pressure 169/72 172/92 167/77 O2 Sat by Pulse 98 100 90 L Oximetry 02/26/21 12:30 Temperature Pulse Rate 93 Respiratory 18 Rate Blood Pressure 154/86 O2 Sat by Pulse 98 Oximetry Chest Pain MDM - MDM Patient is a 55-year-old female here for sudden onset of chest, upper abdominal pain that started this morning. Patient is diaphoretic, nauseous upon arrival. Slightly hypertensive as well, afebrile. Her EKG shows normal sinus rhythm, no signs of acute ischemia. Given patient's intense pain and sudden onset, I did do an thoracic and abdomen CT angio, this was completely unremarkable. Patients labs show a slightly elevated white count of 14.7, this is most likely reactive, rest of labs are within normal limits. Troponin is normal. Patient received aspirin, morphine, Zofran, has been resting comfortably. She'll be admitted for chest pain rule out, serial troponins, cardiac consult. She is in agreement wi this plan of care. Patient accepted by Dr. Lieberman. Case discussed with Dr. Curry. Disposition Clinical Impression: Chest pain Disposition: ADMITTED IP TO THIS HOSP Condition: Stable Is patient prescribed a controlled substance at d/c from ED?: No Decision Date: 02/26/21 Decision Time: 13:52
[2021-02-26] MEDS ORDERED: METOCLOPRAMIDE 5 MG/ML 2 ML VIAL IVP STA (12:28)
[2021-02-26] MEDS ORDERED: MORPHINE SULFATE 2 MG/ML SYRINGE IVP ONE (12:28)
--- NOTE | 2021-02-26 12:33 | CT ---
EXAMINATION TYPE: CT angio thor/abd pel aorta DATE OF EXAM: 02/26/2021 COMPARISON: None HISTORY: Sudden chest/abdominal pain with headache CT DLP: 1095.6 mGycm CONTRAST: CTA thoracic and abdominal aorta with 3-D reconstruction is performed and without and with IV Contras t, patient injected with 100 ml mL of Isovue 370. Contrast CTA of the thoracic and abdominal aorta was performed from the lung apex through the base of the pelvis. 3-D reconstruction imaging obtained at a separate workstation. CT Chest: THORACIC AORTA: There is no evidence for aneurysm. No dissection or mediastinal hematoma. Mild ath eromatous changes are seen. LUNGS: The lungs are clear and free of infiltrate or atelectasis. No pulmonary nodule or mass is det ected. No pleural effusion or CT evidence of interstitial lung disease. MEDIASTINUM: The heart is not enlarged. No evidence for mediastinal mass or adenopathy. HILAR STRUCTURES: No evidence for mass. No hilar adenopathy is appreciated. OTHER: No significant abnormality. CONTRAST CT ABDOMEN AND PELVIS ABDOMENAL AORTA: No evidence for abdominal aortic aneurysm. No dissection. Iliac vessels are symmet villa and patent. LIVER/GB-the gallbladder surgically absent. PANCREAS- No significant abnormality is seen. SPLEEN- No significant abnormality is seen. ADRENALS- No significant abnormality is seen. KIDNEYS/BLADDER-renal cystic changes noted. BOWEL-hiatal hernia noted. GENITAL ORGANS: Previous hysterectomy changes noted. LYMPH NODES- No greater than 1cm abdominal or pelvic lymph nodes are appreciated. OSSEOUS STRUCTURES- No significant abnormality is seen. OTHER-free fluid is seen within the cul-de-sac. IMPRESSION- 1. No evidence for aortic aneurysm or dissection. No periaortic collections seen.
[2021-02-26] MEDS ORDERED: ACETAMINOPHEN TAB 325 MG TAB PO PRN (13:50)
[2021-02-26] MEDS ORDERED: NITROGLYCERIN SL TABS 0.4 MG TAB SUBLINGUAL PRN (13:50)
[2021-02-26] MEDS ORDERED: MELATONIN 5 MG TABLET PO PRN (16:02)
[2021-02-26] MEDS ORDERED: SUMAtriptan succinate 50 MG TAB PO PRN (16:02)
[2021-02-26] MEDS: HYDROcodone/APAP 7.5-325MG 1 EACH TAB PO PRN (17:15)
--- NOTE | 2021-02-26 19:29 | P.HPIM ---
History of Present Illness This is a pleasant 55 years old female with multiple medical problems including asthma/COPD, fibromyalgia and migraine follow-up with Dr. Ceja, ulcerative colitis on follow-up with Dr. neil, also she follow up with senior php software developer, Dr. Rodriguez operations associate and she follows up with Dr. Cottrell for her increased pressure in the eye, she uses eyedrops and home and patient was advised to bring came so it can be restarted as they are not on on her home list, she agrees. Her PCP is Dr. Jaffe Patient presents because of chest pain started 6:00 this morning about 10/10 when she came in and currently 728/10, central felt like pressure associated with little dyspnea but no coughing or abdominal pain or nausea vomiting or diarrhea. No dysuria or change in urine habits. Also patient vomited about 6 times this morning, however currently she feels fine with no nausea She smokes about 6 cigarettes per day, she was counseled and agreed to quit, she agrees to the nicotine patch. She denies alcohol but she uses marijuana for her pain Vitas looks stable, she is slightly tachycardic at 106. She has mild leukocytosis of 14.7 K. INR 0.9, BMP is unremarkable. Liver enzymes not increased. Troponin less than 0.0123. Lipase is normal at 119, chung virus not detected EKG showed normal sinus rhythm at [address] T changes CT angiography thorax, abdomen and pelvic aorta: No evidence of dissecting aneurysm of the aorta. The emergency room patient was started on aspirin 325 mg and Reglan/Zofran Review of Systems CONSTITUTIONAL: No fever, no malaise, no fatigue. HEENT: No recent visual problems or hearing problems. Denied any sore throat. CARDIOVASCULAR: No orthopnea, PND, no palpitations, no syncope. PULMONARY: No shortness of breath, no cough, no hemoptysis. GASTROINTESTINAL: No diarrhea, no nausea, no vomiting, no abdominal pain. Normoactive bowel sounds. NEUROLOGICAL: No headaches, no weakness, no numbness. HEMATOLOGICAL: Denies any bleeding or petechiae. GENITOURINARY: Denies any burning micturition, frequency, or urgency. MUSCULOSKELETAL/RHEUMATOLOGICAL: Denies any joint pain, swelling, or any muscle pain. ENDOCRINE: Denies any polyuria or polydipsia. 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 History of Any Multi-Drug Resistant Organisms: C-DIFF Date of last positivie culture/infection: MDRO Source:: stool Past Surgical History: Appendectomy, Cholecystectomy, Hysterectomy, Orthopedic Surgery, Tubal Ligation, Uterine Ablation Additional Past Surgical History / Comment(s): carpel tunnel to left, ganglion cyst, SYED FUNDOPLASTY Past Anesthesia/Blood Transfusion Reactions: No Reported Reaction Additional Past Anesthesia/Blood Transfusion Reaction / Comment(s): Pt has clausterphobia. Smoking Status: Current every day smoker, Light tobacco smoker - Past Family History Mother Family Medical History: No Reported History Additional Family Medical History / Comment(s): Pancreatic disease, . Father Family Medical History: Diabetes Mellitus Medications and Allergies Home Medications Medication Instructions Recorded Confirmed Type Simvastatin [Zocor] 20 mg PO HS 02/10/16 02/26/21 History DULoxetine HCL [Cymbalta] 60 mg PO HS 12/04/16 02/26/21 History Melatonin 5 mg PO HS PRN 12/24/16 02/26/21 History Verapamil HCl [Verapamil ER] 180 mg PO HS 04/10/17 02/26/21 History HYDROcodone/APAP 7.5-325MG [[place] 1 tab PO TID PRN 01/02/18 02/26/21 History 7.5-325] SUMAtriptan SUCCINATE [Imitrex] 50 mg PO DAILY PRN 01/02/18 02/26/21 History Cyanocobalamin (Vitamin B-12) 2,500 mcg PO DAILY 03/10/20 02/26/21 History [Vitamin B-12] Cyclobenzaprine [Flexeril] 10 mg PO TID 03/10/20 02/26/21 History Evening [place] Oil 1,000 mg PO BID 03/10/20 02/26/21 History Galcanezumab-Gnlm [Emgality Pen] 120 mg SQ Q28D 03/10/20 02/26/21 History Glucosamine/Chondr [place] A Sod [Osteo 1 tab PO DAILY 03/10/20 02/26/21 History Bi-Flex Caplet] L.acidoph,Paracasei, B.lactis 1 cap PO DAILY 03/10/20 02/26/21 History [Probiotic] buPROPion HCL [buPROPion HCL ER] 200 mg PO BID 03/10/20 02/26/21 History lamoTRIgine [LaMICtal] 100 mg PO DAILY 03/10/20 02/26/21 History Albuterol Sulfate [Ventolin HFA] 1 - 2 puff INHALATION RT-Q6H PRN 02/26/21 02/26/21 History Cholecalciferol [Vitamin D3 (25 50 mcg PO DAILY 02/26/21 02/26/21 History Mcg = 1000 Iu)] Dexlansoprazole [Dexilant] 60 mg PO DAILY 02/26/21 02/26/21 History Fluticasone/Salmeterol [Advair Hfa 2 puff INHALATION RT-BID 02/26/21 02/26/21 History 115-21 Mcg Inhaler] Gabapentin 600 mg PO TID 02/26/21 02/26/21 History Mesalamine [Lialda] 1.2 gm PO BID 02/26/21 02/26/21 History traZODone HCL [Desyrel] 100 mg PO HS 02/26/21 02/26/21 History Allergies Allergy/AdvReac Type Severity Reaction Status Date / Time venom-honey bee Allergy Severe Anaphylaxis Verified 05/21/20 10:36 [bee venom (honey bee)] coconut oil Allergy Unknown Rash/Hives Verified 05/21/20 10:36 Hops plant Allergy projectile Uncoded 05/21/20 10:36 vomiting Physical Exam Vitals: Vital Signs Temp Pulse Pulse Resp BP BP Pulse Ox 02/26/21 17:07 106 H 16 111/66 96 02/26/21 15:16 98.6 F 104 H 16 122/77 96 02/26/21 14:58 98.9 F 91 18 143/79 98 02/26/21 12:30 93 18 154/86 98 02/26/21 12:00 89 18 167/77 90 L 02/26/21 11:30 67 22 172/92 100 02/26/21 10:24 99.1 F 70 18 169/72 98 Intake and Output 02/26/21 02/26/21 02/26/21 06:59 14:59 22:59 Other: Weight 78.018 kg GENERAL: The patient is alert and oriented x3, not in any acute distress. Well developed, well nourished. HEENT: Pupils are round and equally reacting to light. EOMI. No scleral icterus. No conjunctival pallor. Normocephalic, atraumatic. No pharyngeal erythema. No thyromegaly. CARDIOVASCULAR: S1 and S2 present. No murmurs, rubs, or gallops. PULMONARY: Chest is clear to auscultation, no wheezing or crackles. ABDOMEN: Soft, nontender, nondistended, normoactive bowel sounds. No palpable organomegaly. MUSCULOSKELETAL: No joint swelling or deformity. EXTREMITIES: No cyanosis, clubbing, or pedal edema. NEUROLOGICAL: Gross neurological examination did not reveal any focal deficits. SKIN: No rashes. No petechiae Results CBC & Chem 7: 02/26/21 11:11 02/26/21 11:11 Labs: Abnormal Lab Results - Last 24 Hours (Table) 02/26/21 02/26/21 02/26/21 Range/Units 11:11 11:11 11:11 WBC 14.7 H (3.8-10.6) k/uL Neutrophils # 12.4 H (1.3-7.7) k/uL APTT 21.4 L (22.0-30.0) sec Chloride 110 H (98-107) mmol/L Glucose 133 H (74-99) mg/dL Thrombosis Risk Factor Assmnt - Choose All That Apply Any of the Below Risk Factors Present?: Yes Each Factor Represents 1 point: Abnormal pulmonary function (COPD), Age 41-60 years, Obesity (BMI >25) Other Risk Factors: Yes Each Risk Factor Represents 3 Points: History of DVT/PE Other congenital or acquired thrombophilia - If yes, enter type in comment: No Thrombosis Risk Factor Assessment Total Risk Factor Score: 6 Thrombosis Risk Factor Assessment Level: High Risk Assessment and Plan Assessment: Chest pain, rule out cardiac causes Nausea and vomiting could be related to mild gastritis Dehydration History of asthma/COPD History of fibromyalgia and migraine History of ulcerative colitis history of eye disease and decreased pressure Plan: This is a pleasant 55 years old female who presents with chest pain and vomiting . We will do serial troponin, cardiology consult. Continue with aspirin Start gentle hydration We will order Chest x-ray Continue with antiemetic Labs and medication were reviewed.. Continue same treatment. Continue with symptomatic treatment. Resume home medication. Monitor lytes and vitals. DVT and GI prophylaxis. Further recommendationsas per clinical course of the patient DVT prophylaxis: Subcutaneous heparin GI Prophylaxis: Pepcid
[2021-02-26] MEDS: SODIUM CHLORIDE 0.9% 1,000 ML IV SCH (20:51)
[2021-02-26] MEDS: NICOTINE 7MG/24HR PATCH TRANSDERM SCH (20:51)
[2021-02-26] MEDS: VERAPAMIL SR 180 MG TABLET.ER PO SCH (20:52)
[2021-02-26] MEDS: traZODone HCL 50 MG TAB PO SCH (20:52)
[2021-02-26] MEDS: DULoxetine HCL 60 MG CAPSULE.DR PO SCH (20:52)
[2021-02-26] MEDS: BALSALAZIDE DISODIUM 750 MG CAPSULE PO SCH (20:52)
[2021-02-26] MEDS: buPROPion SR 100 MG TABLET.ER PO SCH (20:52)
[2021-02-26] MEDS: ALBUTEROL HFA INHALER INHALATION PRN (20:55)
[2021-02-26] MEDS: SYMBICORT 160-4.5 MCG INHALER INHALATION SCH (20:55)
[2021-02-26 20:58] LABS: African American GFR (CKD) >90 (>60 ml/min/1.73 sqM); Anion Gap 7 mmol/L; Blood Urea Nitrogen 12 mg/dL (7-17); Calcium 9.4 mg/dL (8.4-10.2); Carbon Dioxide 25 mmol/L (22-30); Chloride 108 mmol/L (98-107); Glucose 106 mg/dL (74-99); Non-African American GFR(CKD) 89 (>60 ml/min/1.73 sqM); Potassium 3.8 mmol/L (3.5-5.1); Sodium 140 mmol/L (137-145)
--- NOTE | 2021-02-26 22:23 | XR ---
EXAMINATION TYPE: XR chest 2V DATE OF EXAM: 02/26/2021 COMPARISON: 10/26/2015 HISTORY: Pain TECHNIQUE: 2 views FINDINGS: Heart and mediastinum are normal. Lungs are clear. Diaphragm is normal. There is prominent right-sided pericardial fat pad. There are chest leads. IMPRESSION: Normal chest. No change.
[2021-02-27] MEDS: HYDROcodone/APAP 7.5-325MG 1 EACH TAB PO PRN ×3 (01:35→16:47)
[2021-02-27 04:07] LABS: Basophils # (A) 0.04 X 10*3/uL (0.00-0.10); Basophils % (A) 0.3 %; Eosinophils # (A) 0.03 X 10*3/uL (0.04-0.35); Eosinophils % (A) 0.2 %; HCT 39.5 % (37.2-46.3); Lymphocytes # (A) 1.77 X 10*3/uL (0.90-5.00); Lymphocytes % (A) 12.3 %; MCHC 32.9 g/dL (32.0-37.0); MCV 91.2 fL (80.0-97.0); Mean Platelet Volume 10.5 fL (9.5-12.2); Monocytes # (A) 0.91 X 10*3/uL (0.20-1.00); Monocytes % (A) 6.3 %; Neutrophils # (A) 11.55 X 10*3/uL (1.80-7.70); Neutrophils % (A) 80.6 %; Platelet Count 276 X 10*3/uL (140-440); RBC 4.33 X 10*6/uL (4.10-5.20); RDW 13.3 % (11.5-14.5); WBC 14.35 X 10*3/uL (4.50-10.00)
[2021-02-27] MEDS: SYMBICORT 160-4.5 MCG INHALER INHALATION SCH ×2 (07:20→20:36)
[2021-02-27] MEDS: ALBUTEROL HFA INHALER INHALATION PRN ×2 (07:20→20:37)
[2021-02-27] MEDS: ASPIRIN 325 MG TAB PO SCH (08:31)
[2021-02-27] MEDS: buPROPion SR 100 MG TABLET.ER PO SCH ×2 (08:31→20:22)
[2021-02-27] MEDS: HEPARIN SODIUM,PORCINE/PF 5,000 UNIT/0.5 ML SYRINGE SQ SCH ×2 (08:31→20:22)
[2021-02-27] MEDS: PANTOPRAZOLE 40 MG TABLET PO SCH (08:31)
[2021-02-27] MEDS: BALSALAZIDE DISODIUM 750 MG CAPSULE PO SCH ×3 (08:31→20:22)
[2021-02-27] MEDS: lamoTRIgine 100 MG TAB PO SCH (08:32)
[2021-02-27] MEDS: NICOTINE 7MG/24HR PATCH TRANSDERM SCH (08:32)
[2021-02-27] MEDS ORDERED: FAMOTIDINE 20 MG/2 ML VIAL IV SCH (09:00)
[2021-02-27] MEDS: SODIUM CHLORIDE 0.9% 1,000 ML IV SCH ×2 (09:27→22:26)
--- NOTE | 2021-02-27 09:48 | P.CRDCN ---
History of Present Illness Consult date: 02/27/21 Requesting physician: Jasbir E Sheet Reason for Consult (text): chest pain Chief complaint: chest pain History of present illness: This is a pleasant 55-year-old female patient with a history of hyperlipidemia, MS, spinal issues for which she follows with neurology, ulcerative colitis, IBS, recently diagnosed with achalasia, COPD, smoking, fibromyalgia, regular marijuana use for pain control, depression, anxiety, and kidney stones for which she will require intervention. She does have a preop appointment scheduled with the immigration specialist out of town on March 10 for evaluation prior to kidney stone surgery. She has a history of an appendectomy, hysterectomy and cholecystectomy. She presented to the emergency department with severe chest discomfort left lower sternal border that lasted several hours. She did have some nausea and vomiting 6 times with this. He was finally relieved after receiving a few doses of morphine in the emergency department. She continues to have intermittent discomfort at that site that is much milder and does not last as long. She has tenderness to the area. The pain was worse with inspiration. EKG on admission showed sinus rhythm with no ST-T wave abnormalities indicative of ischemia. She underwent thoracic aorta CTA which showed no evidence of aneurysm or dissection. Chest x-ray showed normal chest. Laboratory values show white blood cell count 14,700, BUN 12, creatinine 0.76, troponins have been negative 4. Magnesium was normal at 2.1 with a potassium of 4.1. Vital signs of an stable she's been afebrile. Upon examination she is resting comfortably in bed. She has no complaints at rest but does complain of tenderness to palpation of the left lower sternal border. Mild abdominal tenderness which she attributes to her ulcerative colitis. 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 History of Any Multi-Drug Resistant Organisms: C-DIFF Date of last positivie culture/infection: MDRO Source:: stool Past Surgical History: Appendectomy, Cholecystectomy, Hysterectomy, Orthopedic Surgery, Tubal Ligation, Uterine Ablation Additional Past Surgical History / Comment(s): carpel tunnel to left, ganglion cyst, SYED FUNDOPLASTY Past Anesthesia/Blood Transfusion Reactions: No Reported Reaction Additional Past Anesthesia/Blood Transfusion Reaction / Comment(s): Pt has clausterphobia. Smoking Status: Current every day smoker, Light tobacco smoker - Past Family History Mother Family Medical History: No Reported History Additional Family Medical History / Comment(s): Pancreatic disease, . Father Family Medical History: Diabetes Mellitus Medications and Allergies Home Medications Medication Instructions Recorded Confirmed Type Simvastatin [Zocor] 20 mg PO HS 02/10/16 02/26/21 History DULoxetine HCL [Cymbalta] 60 mg PO HS 12/04/16 02/26/21 History Melatonin 5 mg PO HS PRN 12/24/16 02/26/21 History Verapamil HCl [Verapamil ER] 180 mg PO HS 04/10/17 02/26/21 History HYDROcodone/APAP 7.5-325MG [[place] 1 tab PO TID PRN 01/02/18 02/26/21 History 7.5-325] SUMAtriptan SUCCINATE [Imitrex] 50 mg PO DAILY PRN 01/02/18 02/26/21 History Cyanocobalamin (Vitamin B-12) 2,500 mcg PO DAILY 03/10/20 02/26/21 History [Vitamin B-12] Cyclobenzaprine [Flexeril] 10 mg PO TID 03/10/20 02/26/21 History Evening Poth Oil 1,000 mg PO BID 03/10/20 02/26/21 History Galcanezumab-Gnlm [Emgality Pen] 120 mg SQ Q28D 03/10/20 02/26/21 History Glucosamine/Chondr Watters A Sod [Osteo 1 tab PO DAILY 03/10/20 02/26/21 History Bi-Flex Caplet] L.acidoph,Paracasei, B.lactis 1 cap PO DAILY 03/10/20 02/26/21 History [Probiotic] buPROPion HCL [buPROPion HCL ER] 200 mg PO BID 03/10/20 02/26/21 History lamoTRIgine [LaMICtal] 100 mg PO DAILY 03/10/20 02/26/21 History Albuterol Sulfate [Ventolin HFA] 1 - 2 puff INHALATION RT-Q6H PRN 02/26/21 02/26/21 History Cholecalciferol [Vitamin D3 (25 50 mcg PO DAILY 02/26/21 02/26/21 History Mcg = 1000 Iu)] Dexlansoprazole [Dexilant] 60 mg PO DAILY 02/26/21 02/26/21 History Fluticasone/Salmeterol [Advair Hfa 2 puff INHALATION RT-BID 02/26/21 02/26/21 History 115-21 Mcg Inhaler] Gabapentin 600 mg PO TID 02/26/21 02/26/21 History Mesalamine [Lialda] 1.2 gm PO BID 02/26/21 02/26/21 History traZODone HCL [Desyrel] 100 mg PO HS 02/26/21 02/26/21 History Allergies Allergy/AdvReac Type Severity Reaction Status Date / Time venom-honey bee Allergy Severe Anaphylaxis Verified 05/21/20 10:36 [bee venom (honey bee)] coconut oil Allergy Unknown Rash/Hives Verified 05/21/20 10:36 Hops plant Allergy projectile Uncoded 05/21/20 10:36 vomiting Physical Exam Vitals: Vital Signs Temp Pulse Pulse Resp BP BP Pulse Ox 02/27/21 07:00 98.7 F 78 16 127/80 97 02/27/21 01:53 98.3 F 87 17 113/71 98 02/26/21 20:00 98.1 F 101 H 18 101/61 96 02/26/21 17:07 106 H 16 111/66 96 02/26/21 15:16 98.6 F 104 H 16 122/77 96 02/26/21 14:58 98.9 F 91 18 143/79 98 02/26/21 12:30 93 18 154/86 98 02/26/21 12:00 89 18 167/77 90 L 02/26/21 11:30 67 22 172/92 100 02/26/21 10:24 99.1 F 70 18 169/72 98 Intake and Output 02/26/21 02/27/21 02/27/21 22:59 06:59 14:59 Other: Voiding Method Toilet Toilet Toilet # Voids 1 1 1 PHYSICAL EXAMINATION: This is a 55-year-old female in no apparent distress at the time of my examination. VITAL SIGNS: Blood pressure 127/80, heart rate 78, respirations 16, temp 98.7F. Patient is 97 % on room air. HEENT: Head is atraumatic, normocephalic. Pupils are equal, round. Sclerae anicteric. Conjunctivae are clear. Mucous membranes of the mouth are moist. Neck is supple. There is no elevated jugular venous pressure. No carotid bruit is heard. CHEST EXAMINATION: Clear to auscultation bilaterally. No wheezes rales or rhonchi. Respirations even and nonlabored. Tenderness noted to left lower sternal border on palpation HEART EXAMINATION: Heart regular, positive S1 and S2. No S3. No S4. No clicks, rubs or murmurs. ABDOMEN: Soft, mild tenderness to palpation, no guarding. Bowel sounds are heard. No organomegaly noted. EXTREMITIES: 2+ peripheral pulses with no evidence of peripheral edema and no calf tenderness noted. NEUROLOGIC EXAMINATION: Patient is awake, alert and oriented x3. Results 02/26/21 20:33 02/26/21 20:33 Cardiac Enzymes 02/26/21 02/26/21 02/26/21 Range/Units 11:11 11:11 14:21 AST 22 (14-36) U/L Troponin I <0.012 <0.012 (0.000-0.034) ng/mL 02/26/21 02/26/21 Range/Units 17:22 20:33 AST (14-36) U/L Troponin I <0.012 <0.012 (0.000-0.034) ng/mL Coagulation 02/26/21 Range/Units 11:11 PT 9.4 (9.0-12.0) sec APTT 21.4 L (22.0-30.0) sec CBC 02/26/21 02/26/21 Range/Units 11:11 20:33 WBC 14.7 H 14.35 H (3.8-10.6) k/uL RBC 4.95 4.33 (3.80-5.40) m/uL Hgb 15.0 13.0 (11.4-16.0) gm/dL Hct 44.4 39.5 (34.0-46.0) % Plt Count 270 276 (150-450) k/uL Comprehensive Metabolic Panel 02/26/21 02/26/21 Range/Units 11:11 20:33 Sodium 145 140 (137-145) mmol/L Potassium 4.1 3.8 (3.5-5.1) mmol/L Chloride 110 H 108 H (98-107) mmol/L Carbon Dioxide 22 25 (22-30) mmol/L BUN 15 12 (7-17) mg/dL Creatinine 0.87 0.76 (0.52-1.04) mg/dL Glucose 133 H 106 H (74-99) mg/dL Calcium 10.2 9.4 (8.4-10.2) mg/dL AST 22 (14-36) U/L ALT 16 (4-34) U/L Alkaline Phosphatase 126 (38-126) U/L Total Protein 7.2 (6.3-8.2) g/dL Albumin 4.9 (3.5-5.0) g/dL Current Medications Generic Name Dose Route Start Last Admin Trade Name Freq PRN Reason Stop Dose Admin Acetaminophen 650 mg 02/26/21 13:50 02/26/21 21:03 Acetaminophen Tab 325 Mg Tab PO 650 mg Q4HR PRN Administration Pain Hydrocodone Bitart/Acetaminophen 1 each 02/26/21 16:02 02/27/21 09:00 Hydrocodone/Apap 7.5-325mg 1 Each Tab PO 1 each TID PRN Administration Pain Albuterol Sulfate 2 puff 02/26/21 16:02 02/27/21 07:20 Albuterol Hfa Inhaler INHALATION 2 puff RT-Q6H PRN Administration Shortness Of Breath Aspirin 325 mg 02/27/21 09:00 02/27/21 08:31 Aspirin 325 Mg Tab PO 325 mg DAILY RACHEL Administration Balsalazide 2,250 mg 02/26/21 22:00 02/27/21 08:31 Balsalazide Disodium 750 Mg Capsule PO 2,250 mg TID RACHEL Administration Budesonide/Formoterol Fumarate 2 puff 02/26/21 20:00 02/27/21 07:20 Symbicort 160-4.5 Mcg Inhaler INHALATION 2 puff RT-BID RACHEL Administration Bupropion HCl 200 mg 02/26/21 21:00 02/27/21 08:31 Bupropion Sr 100 Mg Tablet.Er PO 200 mg BID RACHEL Administration Duloxetine HCl 60 mg 02/26/21 21:00 02/26/21 20:52 Duloxetine Hcl 60 Mg Capsule.Dr PO 60 mg HS RACHEL Administration Famotidine 20 mg 02/27/21 09:00 02/27/21 08:31 Famotidine 20 Mg/2 Ml Vial IV 20 mg Q12HR RACHEL Administration Heparin Sodium (Porcine) 5,000 unit 02/27/21 09:00 02/27/21 08:31 Heparin Sodium,Porcine/Pf 5,000 Unit/0.5 Ml Syringe SQ 5,000 unit Q12HR RACHEL Administration Sodium Chloride 1,000 mls @ 75 mls/hr 02/26/21 19:30 02/27/21 09:27 Saline 0.9% IV Not Given .[id number] RACHEL Lamotrigine 100 mg 02/27/21 09:00 02/27/21 08:32 Lamotrigine 100 Mg Tab PO 100 mg DAILY RACHEL Administration Melatonin 5 mg 02/26/21 16:02 Melatonin 5 Mg Tablet PO HS PRN Insomnia Nicotine 1 patch 02/26/21 19:30 02/27/21 08:32 Nicotine 7mg/24hr Patch TRANSDERM 1 patch DAILY RACHEL Administration Nitroglycerin 0.4 mg 02/26/21 13:50 Nitroglycerin Sl Tabs 0.4 Mg Tab SUBLINGUAL Q5M PRN Chest Pain Pantoprazole Sodium 40 mg 02/27/21 07:30 02/27/21 08:31 Pantoprazole 40 Mg Tablet PO 40 mg DAILY@0730 RACHEL Administration Sumatriptan Succinate 50 mg 02/26/21 16:02 Sumatriptan Succinate 50 Mg Tab PO DAILY PRN migraines Trazodone HCl 100 mg 02/26/21 21:00 02/26/21 20:52 Trazodone Hcl 50 Mg Tab PO 100 mg HS RACHEL Administration Verapamil HCl 180 mg 02/26/21 21:00 02/26/21 20:52 Verapamil Sr 180 Mg Tablet.Er PO 180 mg HS RACHEL Administration Intake and Output 02/26/21 02/27/21 02/27/21 22:59 06:59 14:59 Other: Voiding Method Toilet Toilet Toilet # Voids 1 1 1 02/26/21 20:33 02/26/21 20:33 EKG Interpretations (text) Sinus rhythm Assessment and Plan Assessment: #1 symptoms of chest pain, atypical, reproducible, and acute coronary event has been ruled out, troponins have been negative 4, EKG showed no evidence of ischemia #2 smoking #3 hyperlipidemia #4 achalasia #5 MS #6 fibromyalgia #7 marijuana use Plan: From cardiology perspective we obtain a 2-D echo with Doppler to assess cardiac structure and function. The pain does not seem to be cardiac in nature. Increase patient's activity. Depending on patient's symptoms and diagnostic findings further recommendations will be made however patient will likely be discharged soon and have Dobutamine stress echo as an outpatient. The above dictated assessment and findings were discussed with signing physician. The impression and plan of care have been directed as dictated. Marion Wong, Nurse Practitioner, acting as scribe for signing physician.
[2021-02-27 10:08] LABS: Chol/HDL Ratio 3.75; LDL Cholesterol,Calculated 120.4 mg/dL (0.0-131.0); VLDL Calculation 30.6 mg/dL (5.00-40.00)
--- NOTE | 2021-02-27 10:42 | ECHOF ---
Referral Reason:chest pain MEASUREMENTS -------- HEIGHT: 162.6 cm WEIGHT: 78.0 kg BP: 127/80 RVIDd: 3.8 cm (< 3.3) IVSd: 1.3 cm (0.6 - 1.1) LVIDd: 4.1 cm (3.9 - 5.3) LVPWd: 1.3 cm (0.6 - 1.1) IVSs: 1.7 cm LVIDs: 2.6 cm LVPWs: 1.9 cm LAESV Index (A-L): 32.42 ml/m Ao Diam: 3.1 cm (2.0 - 3.7) AV Cusp: 2.2 cm (1.5 - 2.6) LA Diam: 4.0 cm (2.7 - 3.8) MV EXCURSION: 19.027 mm (> 18.000) MV EF SLOPE: 121 mm/s (70 - 150) EPSS: 0.2 cm MV E Suhail: 1.00 m/s MV DecT: 203 ms MV A Suhail: 0.83 m/s MV E/A Ratio: 1.20 RAP: 5.00 mmHg RVSP: 26.46 mmHg FINDINGS -------- Sinus rhythm. This was a technically adequate study. The left ventricular size is normal. There is mild concentric left ventricular hypertrophy. Overa ll left ventricular systolic function is normal with, an EF between 55 - 60 %. The diastolic fillin g pattern is normal for the age of the patient 10.64. The right ventricle is mild to moderately enlarged. LA is midly dilated 29-33ml/m2. The right atrial size is normal. Interatrial and interventricular septum intact. The aortic valve is trileaflet and appears structurally normal. There is no evidence of aortic regu rgitation. There is no evidence of aortic stenosis. Mild mitral regurgitation is present. Mild tricuspid regurgitation present. There is no evidence of pulmonary hypertension. The right v entricular systolic pressure, as measured by Doppler, is 26.46mmHg. There is no pulmonic regurgitation present. The aortic root size is normal. The inferior vena cava is mildly dilated. There is no pericardial effusion. CONCLUSIONS -------- 1. The left ventricular size is normal. 2. There is mild concentric left ventricular hypertrophy. 3. Overall left ventricular systolic function is normal with, an EF between 55 - 60 %. 4. The diastolic filling pattern is normal for the age of the patient 10.64 5. The right ventricle is mild to moderately enlarged. 6. LA is midly dilated 29-33ml/m2. 7. Mild mitral regurgitation is present. 8. Mild tricuspid regurgitation present. 9. The inferior vena cava is mildly dilated. POLYMERIZATION SUPERVISOR: Greta Santana RDCS
--- NOTE | 2021-02-27 12:54 | P.CNPUL ---
History of Present Illness Consult date: 02/27/21 Requesting physician: Jasbir Lieberman Reason for consult: dyspnea, chest pain Chief complaint: Pain on deep inspiration, reproducible sternal pain. History of present illness: Pulmonary consult dated 02/27/2021. 55-year-old female, who I am asked to see because of chest discomfort. The pain apparently started yesterday. She states the pain is primarily in the center of her chest. It also radiated to her back. She states it is difficult in taking a deep breath because of the pain. Currently, the pain is much improved. I asked her whether or not the pain was reproducible and she said yes. In addition, she states that she had a migraine, and also, had epigastric discomfort and vomited. She apparently was recently diagnosed with achalasia. The patient apparently has a history of asthma, COPD, fibromyalgia, osteoarthritis, kidney stones, migraine cephalgia, ulcerative colitis, hiatal hernia, stomach ulcer, and achalasia. The patient also apparently had an episode of C. difficile colitis. Currently, the patient is not on any supplemental oxygen. Room air saturations are 97%. White count 14.35, hemoglobin 13, hematocrit 39.5, and platelet count 276,000. PT INR normal. S odium 140, potassium 3.8, chlorides 108, CO2 25, anion gap 7, BUN and creatinine were both normal. Troponins were negative 4. Coronavirus testing was negative. A chest x-ray was interpreted as normal. A CT of the chest revealed no evidence of aortic aneurysm or dissection. Review of Systems REVIEW OF SYSTEMS: CONSTITUTIONAL: [Negative.] NEUROLOGIC: Migraine cephalgia. HEENT: [ Negative.] CARDIAC: Reproducible midsternal pain. PULMONARY: Pain with deep inspiration. GI: Emesis. : [Negative.] RHEUMATOLOGIC: [ Negative.] IMMUNOLOGIC: [ Negative.] ENDOCRINE: [Negative. ] DERMATOLOGIC: [Negative.] Past Medical History Past Medical History: Asthma, COPD, Fibromyalgia, Musculoskeletal Disorder, Osteoarthritis (OA) Additional Past Medical History / Comment(s): STATES KIDNEY STONES SHARONA, CARLA YESI, NERVE DAMAGE TO NECK AND SPINE, ULCERATIVE COLITIS- OCCASIONAL BLOOD IN STOOL, HIATAL HERNIA WITH SURGERY, HX OF STOMACH ULCER. History of Any Multi-Drug Resistant Organisms: C-DIFF Date of last positivie culture/infection: MDRO Source:: stool Past Surgical History: Appendectomy, Cholecystectomy, Hysterectomy, Orthopedic Surgery, Tubal Ligation, Uterine Ablation Additional Past Surgical History / Comment(s): carpel tunnel to left, ganglion cyst, SYED FUNDOPLASTY Past Anesthesia/Blood Transfusion Reactions: No Reported Reaction Additional Past Anesthesia/Blood Transfusion Reaction / Comment(s): Pt has clausterphobia. Smoking Status: Current every day smoker, Light tobacco smoker - Past Family History Mother Family Medical History: No Reported History Additional Family Medical History / Comment(s): Pancreatic disease, . Father Family Medical History: Diabetes Mellitus Medications and Allergies Home Medications Medication Instructions Recorded Confirmed Type Simvastatin [Zocor] 20 mg PO HS 02/10/16 02/26/21 History DULoxetine HCL [Cymbalta] 60 mg PO HS 12/04/16 02/26/21 History Melatonin 5 mg PO HS PRN 12/24/16 02/26/21 History Verapamil HCl [Verapamil ER] 180 mg PO HS 04/10/17 02/26/21 History HYDROcodone/APAP 7.5-325MG [[place] 1 tab PO TID PRN 01/02/18 02/26/21 History 7.5-325] SUMAtriptan SUCCINATE [Imitrex] 50 mg PO DAILY PRN 01/02/18 02/26/21 History Cyanocobalamin (Vitamin B-12) 2,500 mcg PO DAILY 03/10/20 02/26/21 History [Vitamin B-12] Cyclobenzaprine [Flexeril] 10 mg PO TID 03/10/20 02/26/21 History Evening [place] Oil 1,000 mg PO BID 03/10/20 02/26/21 History Galcanezumab-Gnlm [Emgality Pen] 120 mg SQ Q28D 03/10/20 02/26/21 History Glucosamine/Chondr Wat[place] A Sod [Osteo 1 tab PO DAILY 03/10/20 02/26/21 History Bi-Flex Caplet] L.acidoph,Paracasei, B.lactis 1 cap PO DAILY 03/10/20 02/26/21 History [Probiotic] buPROPion HCL [buPROPion HCL ER] 200 mg PO BID 03/10/20 02/26/21 History lamoTRIgine [LaMICtal] 100 mg PO DAILY 03/10/20 02/26/21 History Albuterol Sulfate [Ventolin HFA] 1 - 2 puff INHALATION RT-Q6H PRN 02/26/21 02/26/21 History Cholecalciferol [Vitamin D3 (25 50 mcg PO DAILY 02/26/21 02/26/21 History Mcg = 1000 Iu)] Dexlansoprazole [Dexilant] 60 mg PO DAILY 02/26/21 02/26/21 History Fluticasone/Salmeterol [Advair Hfa 2 puff INHALATION RT-BID 02/26/21 02/26/21 History 115-21 Mcg Inhaler] Gabapentin 600 mg PO TID 02/26/21 02/26/21 History Mesalamine [Lialda] 1.2 gm PO BID 02/26/21 02/26/21 History traZODone HCL [Desyrel] 100 mg PO HS 02/26/21 02/26/21 History Allergies Allergy/AdvReac Type Severity Reaction Status Date / Time venom-honey bee Allergy Severe Anaphylaxis Verified 05/21/20 10:36 [bee venom (honey bee)] coconut oil Allergy Unknown Rash/Hives Verified 05/21/20 10:36 Hops plant Allergy projectile Uncoded 05/21/20 10:36 vomiting Physical Exam Osteopathic Statement: *. No significant issues noted on an osteopathic structural exam other than those noted in the History and Physical/Consult. Vitals: Vital Signs Temp Pulse Pulse Resp BP BP Pulse Ox 02/27/21 07:00 98.7 F 78 16 127/80 97 02/27/21 01:53 98.3 F 87 17 113/71 98 02/26/21 20:00 98.1 F 101 H 18 101/61 96 02/26/21 17:07 106 H 16 111/66 96 02/26/21 15:16 98.6 F 104 H 16 122/77 96 02/26/21 14:58 98.9 F 91 18 143/79 98 Intake and Output 02/26/21 02/27/21 02/27/21 22:59 06:59 14:59 Intake Total 120 Balance 120 Intake: Oral 120 Other: Voiding Method Toilet Toilet Toilet # Voids 1 1 1 No acute distress, oriented 3. Room air saturation 98%. No conversational dyspnea or accessory muscle use. HEENT examination is grossly unremarkable. Neck supple. Full range of motion. No adenopathy thyromegaly or neck vein distention. Cardiovascular examination reveals regular rhythm rate. S1-S2 normal. No S3 or S4. No discernible murmur noted. Heart rate 78 bpm. Lungs reveal clear breath sounds. Breath sounds are equal bilaterally. No adventitious lung sounds including wheezes rhonchi or crackles. Reproducible anterior chest wall pain on palpation. Abdomen soft bowel sounds are heard. No masses or tenderness. Extremities are intact. No cyanosis clubbing or edema. Skin is without rash or lesion. Neurologic examination is brief but nonfocal. Results - Laboratory Findings CBC and BMP: 02/26/21 20:33 02/26/21 20:33 PT/INR, D-dimer PT 9.4 sec (9.0-12.0) 02/26/21 11:11 INR 0.9 (<1.2) 02/26/21 11:11 Abnormal lab findings: Abnormal Labs 02/26/21 02/26/21 02/26/21 11:11 11:11 11:11 WBC 14.7 H Immature Gran # Neutrophils # 12.4 H Eosinophils # APTT 21.4 L Chloride 110 H Glucose 133 H Triglycerides Cholesterol 02/26/21 02/26/21 02/26/21 11:11 20:33 20:33 WBC 14.35 H Immature Gran # 0.05 H Neutrophils # 11.55 H Eosinophils # 0.03 L APTT Chloride 108 H Glucose 106 H Triglycerides 153.0 H Cholesterol 206 H - Diagnostic Findings Chest x-ray: image reviewed CT scan - chest: image reviewed Assessment and Plan Assessment: Acute chest wall pain, likely related to costochondritis/Tietze's syndrome. Epigastric discomfort, which may relate to underlying achalasia/acid reflux disease. History of COPD from ongoing tobacco use, currently stable. History of fibromyalgia. Osteoarthritis. History of migraine cephalgia. History of kidney stones. History of ulcerative colitis. History of hiatal hernia. History of stomach ulcer. History of C. difficile colitis. Plan: Plan dated 02/27/2021. I would recommend a combination nonsteroid anti-inflammatory drugs along with corticosteroids for the patient's chest pain. It appears to be in acute chest wall syndrome. She is very tender on palpation. It likely represents an acute costochondritis. No additional recommendations are made. We'll follow as needed. Prognosis is thought to be good. Time with Patient: Greater than 30
[2021-02-27 15:19] VITALS: BMI 29.5
[2021-02-27] MEDS: predniSONE 10 MG TAB PO SCH (16:47)
[2021-02-27] MEDS: VERAPAMIL SR 180 MG TABLET.ER PO SCH (20:21)
[2021-02-27] MEDS: DULoxetine HCL 60 MG CAPSULE.DR PO SCH (20:22)
[2021-02-27] MEDS: FAMOTIDINE 20 MG TAB PO SCH (20:22)
[2021-02-27] MEDS: traZODone HCL 50 MG TAB PO SCH (20:22)
--- NOTE | 2021-02-27 22:44 | P.PN ---
Subjective This is a pleasant 55 years old female with multiple medical problems including asthma/COPD, fibromyalgia and migraine follow-up with Dr. Ceja, ulcerative colitis on follow-up with Dr. neil, also she follow up with assistant boiler operator, Dr. 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 Cottrell for her increased pressure in the eye, she uses eyedrops and home and patient was advised to bring came so it can be restarted as they are not on on her home list, she agrees. Her PCP is Dr. Jaffe Patient presents because of chest pain started 6:00 this morning about 10/10 when she came in and currently 728/10, central felt like pressure associated with little dyspnea but no coughing or abdominal pain or nausea vomiting or diarrhea. No dysuria or change in urine habits. Also patient vomited about 6 times this morning, however currently she feels fine with no nausea She smokes about 6 cigarettes per day, she was counseled and agreed to quit, she agrees to the nicotine patch. She denies alcohol but she uses marijuana for her pain Vitas looks stable, she is slightly tachycardic at 106. She has mild leukocytosis of 14.7 K. INR 0.9, BMP is unremarkable. Liver enzymes not increased. Troponin less than 0.0123. Lipase is normal at 119, chung virus not detected EKG showed normal sinus rhythm at [address] T changes CT angiography thorax, abdomen and pelvic aorta: No evidence of dissecting aneurysm of the aorta. The emergency room patient was started on aspirin 325 mg and Reglan/Zofran 02/27/2021 Patient reports improvement but not complete resolution of her chest pain, she rated at 7-8/10 in severity, she states that her pain is sharp and increased with coughing and deep breathing, looks pleuritic-like, noncardiac in nature and cardiology cleared the patient for discharge and follow-up as an outpatient for stress test as an outpatient. Pulmonary service were consulted and they recommended steroids and NSAIDs for osteochondritis Patient is currently on aspirin 325 mg, prednisone 30 mg a normal sinus 75 mg. Her tachycardia improved significantly. WBC is stable at 14 gait. Possible discharge in 24-48 hours if she keeps improving Objective - Vital Signs Vital signs: Vital Signs Temp 98.1 F 02/27/21 19:23 Pulse 81 05/22/21 19:23 Resp 18 02/27/21 19:23 BP 157/83 02/27/21 19:23 Pulse Ox 95 02/27/21 19:23 Intake & Output 02/27/21 02/27/21 02/28/21 06:59 18:59 06:59 Intake Total 640 Balance 640 Weight 78.018 kg Intake: Oral 640 Other: Voiding Method Toilet Toilet Toilet # Voids 1 3 - Labs CBC & Chem 7: 02/26/21 20:33 02/26/21 20:33 Labs: Abnormal Lab Results - Last 24 Hours (Table) 02/26/21 02/26/21 02/26/21 Range/Units 11:11 20:33 20:33 WBC 14.35 H (4.50-10.00) X 10*3/uL Immature Gran # 0.05 H (0.00-0.04) X 10*3/uL Neutrophils # 11.55 H (1.80-7.70) X 10*3/uL Eosinophils # 0.03 L (0.04-0.35) X 10*3/uL Chloride 108 H (98-107) mmol/L Glucose 106 H (74-99) mg/dL Triglycerides 153.0 H (0.0-149.0) mg/dL Cholesterol 206 H (0-200) mg/dL Assessment and Plan Assessment: Chest pain, noncardiac or pulmonary in nature, mostly secondary to osteochondritis Nausea and vomiting could be related to mild gastritis. Resolved Dehydration. Improvement History of asthma/COPD History of fibromyalgia and migraine History of ulcerative colitis history of eye disease and decreased pressure Plan: This is a pleasant 55 years old female who presents with chest pain and vomiting. Vomiting stopped. Cardiology cleared the patient for outpatient stress test. Pulmonary team think it's osteo-chondritis. Continue with prednisone on NSAIDs further recommendation. Labs and medication were reviewed.. Continue same treatment. Continue with symptomatic treatment. Resume home medication. Monitor lytes and vitals. DVT and GI prophylaxis. Further recommendationsas per clinical course of the patient DVT prophylaxis: Subcutaneous heparin GI Prophylaxis: Pepcid
[2021-02-28] MEDS: HYDROcodone/APAP 7.5-325MG 1 EACH TAB PO PRN (01:41)
[2021-02-28 07:51] VITALS: BP 160/90; PULSE 86; RESP 16; TEMP 98.1
[2021-02-28] MEDS: ALBUTEROL HFA INHALER INHALATION PRN (08:12)
[2021-02-28] MEDS: SYMBICORT 160-4.5 MCG INHALER INHALATION SCH (08:12)
[2021-02-28] MEDS: BALSALAZIDE DISODIUM 750 MG CAPSULE PO SCH (08:17)
[2021-02-28] MEDS: lamoTRIgine 100 MG TAB PO SCH (08:17)
[2021-02-28] MEDS: FAMOTIDINE 20 MG TAB PO SCH (08:17)
[2021-02-28] MEDS: buPROPion SR 100 MG TABLET.ER PO SCH (08:17)
[2021-02-28] MEDS: ASPIRIN 325 MG TAB PO SCH (08:17)
[2021-02-28] MEDS: PANTOPRAZOLE 40 MG TABLET PO SCH (08:17)
[2021-02-28] MEDS: HEPARIN SODIUM,PORCINE/PF 5,000 UNIT/0.5 ML SYRINGE SQ SCH (08:17)
[2021-02-28] MEDS: NICOTINE 7MG/24HR PATCH TRANSDERM SCH (08:17)
[2021-02-28] MEDS: predniSONE 10 MG TAB PO SCH (08:17)
[2021-02-28] MEDS ORDERED: LOSARTAN 25 MG TAB PO SCH (09:00)
--- NOTE | 2021-02-28 12:23 | CONS ---
CONSULTATION This is a 55-year-old lady that is admitted to hospital with atypical chest pain. This morning she still complains of vague, sharp pericardial pain but wishes to go home. She has been ruled out for myocardial infarction. On exam heart rate is 86 beats per minute, blood pressure is 160/90, respiratory 16. Chest exam reveals good air entry bilaterally. Heart exam reveals first and second heart sounds. No gallop. Abdomen is soft. Exam of extremities did not reveal any edema. I do not have any labs from today. Her cardiac enzymes have been negative. ASSESSMENT: 1. Atypical chest pain. 2. Hypertension. PLAN: I will add losartan given the elevated blood pressures. MMODL / IJN: [id number] /
--- NOTE | 2021-03-01 00:05 | P.DS ---
Providers Date of admission: 02/26/21 12:51 Attending physician: Jasbir Lieberman MD Consults: 02/26/21 13:50 Consult Physician Urgent Consulting Provider: [facility] Consult Reason/Comments: chest pain Do you want consulting provider notified?: Yes 02/27/21 11:54 Consult Physician Routine Consulting Provider: Octaviano Cantrell Reason/Comments: pleuritic pain Do you want consulting provider notified?: Yes Primary care physician: [facility] Course: Diagnoses: Chest pain, noncardiac or pulmonary in nature, mostly secondary to osteochondritis Nausea and vomiting could be related to mild gastritis. Resolved Dehydration. Improvement History of asthma/COPD History of fibromyalgia and migraine History of ulcerative colitis history of eye disease and decreased pressure Total course: This is a pleasant 55 years old female with multiple medical problems including asthma/COPD, fibromyalgia and migraine follow-up with Dr. Ceja, ulcerative colitis on follow-up with Dr. 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 Cottrell for her increased pressure in the eye, Her PCP is Dr. Jaffe Patient presents because of chest pain of one-day duration. Patient has been evaluated by back end engineer and helminthology teacher and found to have to be due musculoskeletal secondary to her osteochondritis and hip pain. Patient was prescribed steroids and aspirin upon discharge. Patient was cleared for discharge by back end engineer and helminthology teacher. The patient back to her baseline other than that. No dyspnea and no coughing. No GI or urinary complaints. No fever Problems and management plan were discussed with the patient and he verbalized understanding and acceptance Patient was found stable and can be discharged home however he needs follow-up as an outpatient. Patient was instructed to follow up with PCP dr. Serrano within one week and patient agrees Patient was instructed to follow up with her back end engineer Dr. Anne in 1-2 weeks and she agrees to call and make appointments Physical exam Gen: patient is a AAOx3, no distress CVS: S1-S2, RRR, no murmur -Lungs: B/L CTA, no wheezing. Significant tenderness of left third and fourth ribs anteriorly (patient jumps on palpation) Abdomen: soft, no distention, no tenderness, positive bowel sounds Extremity: no leg edema or induration Time spent more than 35 minutes Patient Condition at Discharge: Stable Plan - Discharge Summary Discharge Rx Participant: No New Discharge Prescriptions: New Losartan [Cozaar] 25 mg PO DAILY #30 tab Aspirin 325 mg PO DAILY 10 Days #10 tab Nicotine 7Mg/24Hr Patch [Habitrol] 1 patch TRANSDERM DAILY patch methylPREDNISolone Dose Pack [Medrol Dose Pack] 4 mg PO DIRECTED #21 package Continue Simvastatin [Zocor] 20 mg PO HS DULoxetine HCL [Cymbalta] 60 mg PO HS Melatonin 5 mg PO HS PRN PRN Reason: Insomnia Verapamil HCl [Verapamil ER] 180 mg PO HS SUMAtriptan SUCCINATE [Imitrex] 50 mg PO DAILY PRN PRN Reason: migraines HYDROcodone/APAP 7.5-325MG [[place] 7.5-325] 1 tab PO TID PRN PRN Reason: Pain Glucosamine/Chondr Watters A Sod [Osteo Bi-Flex Caplet] 1 tab PO DAILY Cyanocobalamin (Vitamin B-12) [Vitamin B-12] 2,500 mcg PO DAILY Evening [place] Oil 1,000 mg PO BID buPROPion HCL [buPROPion HCL ER] 200 mg PO BID lamoTRIgine [LaMICtal] 100 mg PO DAILY Galcanezumab-Gnlm [Emgality Pen] 120 mg SQ Q28D L.acidoph,Paracasei, B.lactis [Probiotic] 1 cap PO DAILY Mesalamine [Lialda] 1.2 gm PO BID Albuterol Sulfate [Ventolin HFA] 1 - 2 puff INHALATION RT-Q6H PRN PRN Reason: Shortness Of Breath Gabapentin 600 mg PO TID Fluticasone/Salmeterol [Advair Hfa 115-21 Mcg Inhaler] 2 puff INHALATION RT- BID Cholecalciferol [Vitamin D3 (25 Mcg = 1000 Iu)] 50 mcg PO DAILY traZODone HCL [Desyrel] 100 mg PO HS Dexlansoprazole [Dexilant] 60 mg PO DAILY Discontinued Cyclobenzaprine [Flexeril] 10 mg PO TID Discharge Medication List Simvastatin [Zocor] 20 mg PO HS 02/10/16 [History] DULoxetine HCL [Cymbalta] 60 mg PO HS 12/04/16 [History] Melatonin 5 mg PO HS PRN 12/24/16 [History] Verapamil HCl [Verapamil ER] 180 mg PO HS 04/10/17 [History] HYDROcodone/APAP 7.5-325MG [[place] 7.5-325] 1 tab PO TID PRN 01/02/18 [History] SUMAtriptan SUCCINATE [Imitrex] 50 mg PO DAILY PRN 01/02/18 [History] Cyanocobalamin (Vitamin B-12) [Vitamin B-12] 2,500 mcg PO DAILY 03/10/20 [History] Evening [place] Oil 1,000 mg PO BID 03/10/20 [History] Galcanezumab-Gnlm [Emgality Pen] 120 mg SQ Q28D 03/10/20 [History] Glucosamine/Chondr Watters A Sod [Osteo Bi-Flex Caplet] 1 tab PO DAILY 03/10/20 [History] L.acidoph,Paracasei, B.lactis [Probiotic] 1 cap PO DAILY 03/10/20 [History] buPROPion HCL [buPROPion HCL ER] 200 mg PO BID 03/10/20 [History] lamoTRIgine [LaMICtal] 100 mg PO DAILY 03/10/20 [History] Albuterol Sulfate [Ventolin HFA] 1 - 2 puff INHALATION RT-Q6H PRN 02/26/21 [History] Cholecalciferol [Vitamin D3 (25 Mcg = 1000 Iu)] 50 mcg PO DAILY 02/26/21 [History] Dexlansoprazole [Dexilant] 60 mg PO DAILY 02/26/21 [History] Fluticasone/Salmeterol [Advair Hfa 115-21 Mcg Inhaler] 2 puff INHALATION RT-BID 02/26/21 [History] Gabapentin 600 mg PO TID 02/26/21 [History] Mesalamine [Lialda] 1.2 gm PO BID 02/26/21 [History] traZODone HCL [Desyrel] 100 mg PO HS 02/26/21 [History] Aspirin 325 mg PO DAILY 10 Days #10 tab 02/28/21 [Rx] Losartan [Cozaar] 25 mg PO DAILY #30 tab 02/28/21 [Rx] Nicotine 7Mg/24Hr Patch [Habitrol] 1 patch TRANSDERM DAILY patch 02/28/21 [Rx] methylPREDNISolone Dose Pack [Medrol Dose Pack] 4 mg PO DIRECTED #21 package 02/28/21 [Rx] Follow up Appointment(s)/Referral(s): Holly Jaffe DO [Primary Care Provider] - 1-2 days (Office is currently closed, please call the office Monday am to schedule your appointment. We recommend to check your blood test with her doctor) Ruben Anne MD [STAFF PHYSICIAN] - 1 Week (Office is currently closed, please call the office Monday am to schedule your appointment. We recommend dobutamine stress test as an outpatient) Patient Instructions/Handouts: Angina (DC) Activity/Diet/Wound Care/Special Instructions: Heart healthy diet Activity is restricted till you see your doctor Discharge Disposition: HOME SELF-CARE
--- NOTE | 2021-03-01 08:26 | PN ---
PROGRESS NOTE INTERVAL HISTORY: 55-year-old female who I asked to see yesterday in consultation for reproducible chest wall syndrome. The patient is doing better today. I recommended corticosteroids and nonsteroid anti-inflammatory drugs for her pain. Her pain was clearly reproducible on palpation. She likely had an episode of costochondritis or Tietze's syndrome. Currently, the patient is feeling much better. Her pain is much less severe today than it was yesterday. PHYSICAL EXAMINATION: VITAL SIGNS: Current vital signs are reviewed. Temperature 98.1, heart rate 86, respiratory rate 16, blood pressure 160/90, mean 113, room air saturation 97%. GENERAL: Appears in no acute distress. HEENT: Examination is grossly unremarkable. NECK: Supple. Full range of motion. No adenopathy. Neck veins are flat. CARDIOVASCULAR: Examination reveals regular rhythm and rate. S1, S2 normal. No S3, S4, or murmur. Heart rate 86 beats per minute. LUNGS: Reveal clear breath sounds equal. No wheezes, rhonchi, or crackles. ABDOMEN: Soft. Bowel sounds are heard. EXTREMITIES are intact. There is no cyanosis, clubbing, or edema. SKIN: Without rash. NEUROLOGIC: Examination is brief but nonfocal. LABS: Reviewed. Nothing new to report. Medications are reviewed. ASSESSMENT: 1. Acute chest wall pain, likely related to costochondritis/T2 syndrome. 2. Epigastric discomfort, which may relate to underlying achalasia, acid reflux disease. 3. History of chronic obstructive pulmonary disease from ongoing tobacco use, currently stable. 4. History of fibromyalgia. 5. Osteoarthritis. 6. History of migraine cephalgia. 7. History of kidney stones. 8. History of ulcerative colitis. 9. History of hiatal hernia. 10.History of stomach ulcer. 11.History of C difficile colitis. PLAN: I recommended warm compresses, and a combination of corticosteroids and nonsteroid anti- inflammatory drug for her reproducible chest wall syndrome. No additional recommendations are made. The patient should do well. Prognosis is good. The patient could be discharged in the near future. No additional recommendations are made. A copy of today's note will go to the primary care provider. MMODL / IJN: [id number] /
== END 2021-02-28 11:45 | disposition home or self-care (01) ==
LOC: EC 10:19 → 6NMEDSUR 12:51
PROVIDERS: ADMIT Internal Medicine; ATTEND Internal Medicine
DX: R07.2 Precordial pain (principal); M94.0 Chondrocostal junction syndrome [Tietze]; R11.2 Nausea with vomiting, unspecified; K29.70 Gastritis, unspecified, without bleeding; E86.0 Dehydration; J44.9 Chronic obstructive pulmonary disease, unspecified; M79.7 Fibromyalgia; G43.909 Migraine, unspecified, not intractable, without status migrainosus; Z20.822 Contact with and (suspected) exposure to COVID-19; R00.0 Tachycardia, unspecified; I10 Essential (primary) hypertension; K22.0 Achalasia of cardia; E78.5 Hyperlipidemia, unspecified; K51.90 Ulcerative colitis, unspecified, without complications; K21.9 Gastro-esophageal reflux disease without esophagitis; M19.90 Unspecified osteoarthritis, unspecified site; F12.90 Cannabis use, unspecified, uncomplicated; G89.29 Other chronic pain; M25.559 Pain in unspecified hip; K44.9 Diaphragmatic hernia without obstruction or gangrene; F32.9 Major depressive disorder, single episode, unspecified; F41.9 Anxiety disorder, unspecified; F40.240 Claustrophobia; F17.210 Nicotine dependence, cigarettes, uncomplicated; Z79.899 Other long term (current) drug therapy; Z79.51 Long term (current) use of inhaled steroids; Z79.82 Long term (current) use of aspirin; Z91.018 Allergy to other foods; Z91.030 Bee allergy status; Z87.11 Personal history of peptic ulcer disease; Z90.710 Acquired absence of both cervix and uterus; Z86.19 Personal history of other infectious and parasitic diseases; Z87.39 Personal history of other diseases of the musculoskeletal system and connective tissue; Z87.442 Personal history of urinary calculi; Z87.19 Personal history of other diseases of the digestive system; Z83.3 Family history of diabetes mellitus
CPT/HCPCS: 96361 ×2; 96372 ×2; 96375 ×2; 96376; 96374; 99285; 36415; 94640 ×6; 93005; 93306; 80061; 80053; 80048; 83690; 83735; 84484; 85025; 85610; 85730; 87635; 71046; 71275; 74174; G0378 ×3; S4990 ×3; J2270 ×2; J2765; S0106 ×3; J2405; J7512 ×2; Q9967; J1644 ×2; 96360

== ENCOUNTER → 2024-01-02 | Outpatient (CLI) | payer MEDICARE, OTHER | END | disposition home or self-care (01) | LOC: LABWHC1 11:23 | PROVIDERS: ATTEND Psychiatry & Neurology Neurology | DX: I49.9 Cardiac arrhythmia, unspecified (principal) | CPT/HCPCS: 93005 ==

== ENCOUNTER 2024-12-23 13:33 | Emergency (ER) | payer MEDICARE, OTHER ==
--- NOTE | 2024-12-23 14:07 | ED ---
General Adult HPI - General Source: patient, RN notes reviewed Mode of arrival: ambulatory Limitations: no limitations <Dariana Power - Last Filed: 12/23/24 14:06> - General Source: patient, RN notes reviewed Mode of arrival: ambulatory Limitations: no limitations <Jojo Henriquez - Last Filed: 12/23/24 21:33> - General Chief complaint: Abdominal Pain Stated complaint: Abd/back pain Time Seen by Provider: 12/23/24 14:06 - History of Present Illness Initial comments: Quick note: 59-year-old female presented the ER for evaluation of bilateral flank pain with radiation to abdomen. She states been going on for a week. She admits to nausea and vomiting. History of ulcerative colitis. Patient does report feeling dizzy and lightheaded. History of cholecystectomy, appendectomy and hysterectomy. (Dariana Power) This is a 59-year-old female who presents to the emergency department for flank pain. States that it started about a week ago but seems to be getting worse. Pain is on both sides but worse on the left and wraps around to the front of her abdomen. She did have some nausea and vomiting for the last couple days, but denies any recently. States that she has started to feel dizzy and lightheaded as well. She has a history of both kidney stones and ulcerative colitis and states that it feels similar to prior bouts of both. (Jojo Henriquez) - Related Data Home Medications Medication Instructions Recorded Confirmed Simvastatin [Zocor] 20 mg PO HS 02/10/16 02/26/21 DULoxetine HCL [Cymbalta] 60 mg PO HS 12/04/16 02/26/21 Melatonin 5 mg PO HS PRN 12/24/16 02/26/21 Verapamil HCl [Verapamil ER] 180 mg PO HS 04/10/17 02/26/21 HYDROcodone/APAP 7.5-325MG [[place] 1 tab PO TID PRN 01/02/18 02/26/21 7.5-325] SUMAtriptan succinate [Imitrex] 50 mg PO DAILY PRN 01/02/18 02/26/21 Cyanocobalamin (Vitamin B-12) 2,500 mcg PO DAILY 03/10/20 02/26/21 [Vitamin B-12] Evening Foster Oil 1,000 mg PO BID 03/10/20 02/26/21 Galcanezumab-Gnlm [Emgality Pen] 120 mg SQ Q28D 03/10/20 02/26/21 Glucosamine/Chondr Watters A Sod [Osteo 1 tab PO DAILY 03/10/20 02/26/21 Bi-Flex Caplet] L.acidoph,Paracasei, B.lactis 1 cap PO DAILY 03/10/20 02/26/21 [Probiotic] buPROPion HCL [buPROPion HCL ER] 200 mg PO BID 03/10/20 02/26/21 lamoTRIgine [LaMICtal] 100 mg PO DAILY 03/10/20 02/26/21 Albuterol Sulfate [Ventolin HFA] 1 - 2 puff INHALATION RT-Q6H PRN 02/26/21 02/26/21 Cholecalciferol [Vitamin D3 (25 50 mcg PO DAILY 02/26/21 02/26/21 Mcg = 1000 Iu)] Dexlansoprazole [Dexilant] 60 mg PO DAILY 02/26/21 02/26/21 Fluticasone Propion/Salmeterol 2 puff INHALATION RT-BID 02/26/21 02/26/21 [Advair Hfa 115-21 Mcg Inhaler] Gabapentin 600 mg PO TID 02/26/21 02/26/21 Mesalamine [Lialda] 1.2 gm PO BID 02/26/21 02/26/21 traZODone HCL [Desyrel] 100 mg PO HS 02/26/21 02/26/21 Previous Rx's Medication Instructions Recorded Aspirin 325 mg PO DAILY 10 Days #10 tab 02/28/21 Losartan [Cozaar] 25 mg PO DAILY #30 tab 02/28/21 Nicotine 7Mg/24Hr Patch [Habitrol] 1 patch TRANSDERM DAILY patch 02/28/21 methylPREDNISolone Dose Pack 4 mg PO DIRECTED #21 package 02/28/21 [Medrol Dose Pack] Meloxicam [Mobic] 15 mg PO DAILY PRN #20 tab 12/23/24 methocarbamoL [Robaxin-750] 1,500 mg PO TID PRN #20 tab 12/23/24 Allergies Allergy/AdvReac Type Severity Reaction Status Date / Time venom-honey bee Allergy Severe Anaphylaxis Verified 12/23/24 14:15 [bee venom (honey bee)] coconut oil Allergy Unknown Rash/Hives Verified 12/23/24 14:15 Hops plant Allergy projectile Uncoded 12/23/24 14:15 vomiting Review of Systems ROS Other: All systems not noted in ROS Statement are negative. <Dariana Power - Last Filed: 12/23/24 14:06> ROS Other: All systems not noted in ROS Statement are negative. <Jojo Henriquez - Last Filed: 12/23/24 21:33> ROS Statement: Those systems with pertinent positive or pertinent negative responses have been documented in the HPI. 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 History of Any Multi-Drug Resistant Organisms: C-DIFF Date of last positivie culture/infection: MDRO Source:: stool Past Surgical History: Appendectomy, Cholecystectomy, Hysterectomy, Orthopedic Surgery, Tubal Ligation, Uterine Ablation Additional Past Surgical History / Comment(s): carpel tunnel to left, ganglion cyst, SYED FUNDOPLASTY Past Anesthesia/Blood Transfusion Reactions: No Reported Reaction Additional Past Anesthesia/Blood Transfusion Reaction / Comment(s): Pt has clausterphobia. Smoking Status: Current every day smoker, Light tobacco smoker - Past Family History Mother Family Medical History: No Reported History Additional Family Medical History / Comment(s): Pancreatic disease, . Father Family Medical History: Diabetes Mellitus <Dariana Power - Last Filed: 12/23/24 14:06> General Exam <Dariana Power - Last Filed: 12/23/24 14:06> Limitations: no limitations General appearance: alert, in no apparent distress Head exam: Present: atraumatic, normocephalic, normal inspection Respiratory exam: Present: normal lung sounds bilaterally. Absent: respiratory distress, wheezes, rales, rhonchi, stridor Cardiovascular Exam: Present: regular rate, normal rhythm GI/Abdominal exam: Present: soft, tenderness (Epigastric), normal bowel sounds. Absent: distended, guarding, rebound, rigid Back exam: Present: CVA tenderness (R), CVA tenderness (L) Neurological exam: Present: alert, oriented X3, CN II-XII intact Psychiatric exam: Present: normal affect, normal mood Skin exam: Present: warm, dry, intact, normal color. Absent: rash <Jojo Henriquez - Last Filed: 12/23/24 21:33> - General Exam Comments Initial Comments: Visual Physical Exam Vital signs reviewed General: Well-appearing, nontoxic, no acute distress. Head: Normocephalic, atraumatic Eyes: PERRLA, EOMI ENT: Airway patent Chest: Nonlabored breathing Skin: No visual rash, normal skin tone Neuro: Alert and oriented 3 Musculoskeletal: No gross abnormalities (Dariana Power) Course Vital Signs 12/23/24 12/23/24 12/23/24 14:12 18:18 20:56 Temperature 99.4 F 100.4 F H 98.7 F Pulse Rate 91 93 78 Respiratory 17 20 16 Rate Blood Pressure 93/55 107/73 105/68 O2 Sat by Pulse 95 96 96 Oximetry Medical Decision Making <Dariana Power - Last Filed: 12/23/24 14:06> - Lab Data Result diagrams: 12/23/24 14:36 12/23/24 14:36 - Radiology Data Radiology results: report reviewed, image reviewed <Jojo Henriquez - Last Filed: 12/23/24 21:33> - Medical Decision Making I performed the quick note portion of this chart. Electronically signed by Dariana Power PA-C (Dariana Power) This is a 59 year old female who presents to the emergency department for abdominal pain. Was pt. sent in by a medical professional or institution? @ -No Did you speak to anyone other than the patient for history? @ -No Did you review nursing and triage notes? @ -Yes, and I agree, it is accurate with regards to the patient's symptoms. Were old charts reviewed? @ -No Differential Diagnosis? @ -Differential Abdominal Pain Women: Appendicitis, Cholecystitis, diverticulosis, ischemic bowel, pancreatitis, hepatitis, UTI, gastroenteritis, AAA, incarcerated hernia, bowel obstruction, constipation, inflammatory bowel, hepatitis, peptic ulcer disease, splenic infarction, perforated viscus, vulvitis, ovarian torsion, PID, kidney stone, placenta abruption, this is not meant to be an all-inclusive list EKG interpreted by me (3pts min.)? @ -Not obtained X-rays interpreted by me (1pt min.)? @ -Not obtained CT interpreted by me (1pt min.)? @ -CT scan of the abdomen and pelvis obtained. My interpretation identifies mesenteric lymphadenopathy. U/S interpreted by me (1pt. min.)? @ -Not obtained What testing was considered but not performed? (CT, X-rays, U/S, labs)? Why? @ -None What meds were considered but not given? Why? @ -None Did you discuss the management of the patient with other professionals? @ -No Did you reconcile home meds? @ -No Was smoking cessation discussed for >3mins.? @ -I discussed smoking cessation for greater than 3 minutes. The risk of smoking were discussed with the patient including but not limited to risks of cancer, stroke, coronary artery disease and COPD. Also discussed with patient were multiple methods of quitting smoking. Lastly we discussed the financial cost of smoking. Was critical care preformed (if so, how long)? @ -No Were there social determinants of health that impacted care today? How? (Home lessness, low income, unemployed, alcoholism, drug addiction, transportation, low edu. Level, literacy, decrease access to med. care, long term, rehab)? @ -No Was there de-escalation of care discussed even if they declined? (Discuss DNR or withdrawal of care, Hospice)? @ -No What co-morbidities impacted this encounter? (DM, HTN, Smoking, COPD, CAD, Ca ncer, CVA, Hep., AIDS, mental health diagnosis, sleep apnea, morbid obesity)? @ -UC, kidney stones, smoking, fibromyalgia Was patient admitted / discharged? @ -Discharged. Lab work relatively unremarkable. Urinalysis demonstrates blood but is negative for signs of infection. Patient became febrile with a temperature of 100.4 F in the emergency department. This was treated with Tylenol. CT scan of the abdomen and pelvis demonstrates mesenteric prominent lymph nodes with fat stranding changes with an unclear etiology. They advised correlation for enteritis with short-term follow-up to exclude malignancy. Additionally, she has bilateral renal cysts, one of which may be hemorrhagic. Findings reviewed with the patient. Symptoms treated in the emergency department. She is already on [place] at home. Meloxicam and Robaxin provided to see if that offers any additional relief. Discussed with the patient that she will need to follow-up with both urology and her PCP for repeat imaging, especially with regards to the lymphadenopathy. Patient discharged home in stable condition. Case discussed with ED attending Dr. Nagy. Return precautions reviewed in depth, the patient is instructed to return to the emergency department with any new, worsening, or concerning symptoms. Patient verbalized understanding. Undiagnosed new problem with uncertain prognosis? @ -None Drug Therapy requiring intensive monitoring for toxicity (Heparin, Nitro, Insulin, Cardizem)? @ -None Were any procedures done? @ -None Diagnosis/symptom? @ -Abdominal pain, enteritis, mesenteric lymphadenopathy, renal cyst Acute, or Chronic, or Acute on Chronic? @ -Acute Uncomplicated (without systemic symptoms) or Complicated (systemic symptoms)? @ -Uncomplicated Side effects of treatment? @ -None Exacerbation, Progression, or Severe Exacerbation] @ -Not applicable Poses a threat to life or bodily function? @ -No (Jojo Henriquez) - Lab Data Lab Results 12/23/24 12/23/24 12/23/24 Range/Units 14:28 14:36 14:36 WBC 8.1 (3.8-10.6) k/uL RBC 4.58 (3.80-5.40) m/uL Hgb 13.6 (11.4-16.0) gm/dL Hct 42.0 (34.0-46.0) % MCV 91.7 (80.0-100.0) fL MCH 29.7 (25.0-35.0) pg MCHC 32.4 (31.0-37.0) g/dL RDW 13.8 (11.5-15.5) % Plt Count 242 (150-450) k/uL MPV 7.9 Neutrophils % 78 % Lymphocytes % 14 % Monocytes % 5 % Eosinophils % 1 % Basophils % 0 % Neutrophils # 6.3 (1.3-7.7) k/uL Lymphocytes # 1.2 (1.0-4.8) k/uL Monocytes # 0.4 (0-1.0) k/uL Eosinophils # 0.1 (0-0.7) k/uL Basophils # 0.0 (0-0.2) k/uL PT (10.0-12.5) sec INR (<1.2) APTT (22.0-30.0) sec Sodium 137 (137-145) mmol/L Potassium 4.2 (3.5-5.1) mmol/L Chloride 102 (98-107) mmol/L Carbon Dioxide 26 (22-30) mmol/L Anion Gap 9 mmol/L BUN 20 H (7-17) mg/dL Creatinine 0.67 (0.52-1.04) mg/dL Est GFR (CKD-EPI)AfAm >90 (>60 ml/min/1.73 sqM) Est GFR (CKD-EPI)NonAf >90 (>60 ml/min/1.73 sqM) Glucose 85 (74-99) mg/dL Plasma Lactic Acid Nick (0.7-2.0) mmol/L Calcium 9.1 (8.4-10.2) mg/dL Total Bilirubin 0.7 (0.2-1.3) mg/dL AST 31 (14-36) U/L ALT 30 (4-34) U/L Alkaline Phosphatase 98 (38-126) U/L Troponin I (0.000-0.034) ng/mL Total Protein 6.7 (6.3-8.2) g/dL Albumin 4.2 (3.5-5.0) g/dL Amylase 35 (30-110) U/L Lipase 54 (23-300) U/L Urine Color Yellow Urine Appearance Clear (Clear) Urine pH 6.0 (5.0-8.0) Ur Specific Vance 1.034 (1.001-1.035) Urine Protein Trace H (Negative) Urine Glucose (UA) Negative (Negative) Urine Ketones Trace H (Negative) Urine Blood Small H (Negative) Urine Nitrite Negative (Negative) Urine Bilirubin Negative (Negative) Urine Urobilinogen <2.0 (<2.0) mg/dL Ur Leukocyte Esterase Negative (Negative) Urine RBC 9 H (0-5) /hpf Urine WBC 1 (0-5) /hpf Ur Squamous Epith Cells <1 (0-4) /hpf Urine Mucus Few H (None) /hpf 12/23/24 12/23/24 12/23/24 Range/Units 14:36 14:36 18:33 WBC (3.8-10.6) k/uL RBC (3.80-5.40) m/uL Hgb (11.4-16.0) gm/dL Hct (34.0-46.0) % MCV (80.0-100.0) fL MCH (25.0-35.0) pg MCHC (31.0-37.0) g/dL RDW (11.5-15.5) % Plt Count (150-450) k/uL MPV Neutrophils % % Lymphocytes % % Monocytes % % Eosinophils % % Basophils % % Neutrophils # (1.3-7.7) k/uL Lymphocytes # (1.0-4.8) k/uL Monocytes # (0-1.0) k/uL Eosinophils # (0-0.7) k/uL Basophils # (0-0.2) k/uL PT 10.1 (10.0-12.5) sec INR 0.9 (<1.2) APTT 23.7 (22.0-30.0) sec Sodium (137-145) mmol/L Potassium (3.5-5.1) mmol/L Chloride (98-107) mmol/L Carbon Dioxide (22-30) mmol/L Anion Gap mmol/L BUN (7-17) mg/dL Creatinine (0.52-1.04) mg/dL Est GFR (CKD-EPI)AfAm (>60 ml/min/1.73 sqM) Est GFR (CKD-EPI)NonAf (>60 ml/min/1.73 sqM) Glucose (74-99) mg/dL Plasma Lactic Acid Nick 1.5 (0.7-2.0) mmol/L Calcium (8.4-10.2) mg/dL Total Bilirubin (0.2-1.3) mg/dL AST (14-36) U/L ALT (4-34) U/L Alkaline Phosphatase (38-126) U/L Troponin I <0.012 (0.000-0.034) ng/mL Total Protein (6.3-8.2) g/dL Albumin (3.5-5.0) g/dL Amylase (30-110) U/L Lipase (23-300) U/L Urine Color Urine Appearance (Clear) Urine pH (5.0-8.0) Ur Specific Vance (1.001-1.035) Urine Protein (Negative) Urine Glucose (UA) (Negative) Urine Ketones (Negative) Urine Blood (Negative) Urine Nitrite (Negative) Urine Bilirubin (Negative) Urine Urobilinogen (<2.0) mg/dL Ur Leukocyte Esterase (Negative) Urine RBC (0-5) /hpf Urine WBC (0-5) /hpf Ur Squamous Epith Cells (0-4) /hpf Urine Mucus (None) /hpf Disposition <Dariana Power - Last Filed: 12/23/24 14:06> Is patient prescribed a controlled substance at d/c from ED?: No Time of Disposition: 20:37 <Jojo Henriquez - Last Filed: 12/23/24 21:33> Clinical Impression: Back pain, Abdominal pain, Enteritis, Renal cyst, Nicotine dependence Disposition: HOME SELF-CARE Condition: Stable Instructions (If sedation given, give patient instructions): Abdominal Pain (ED), Enteritis (ED) Additional Instructions: Return to the emergency department with any new, worsening, or concerning symptoms. Take the meloxicam once daily for pain relief. If you choose to take this, do not take any other anti-inflammatories like ibuprofen, take one or the other. You may take it with Tylenol. Try taking the Robaxin as 1 to 2 tablets up to 3-4 times daily. Make sure you follow-up with your primary care provider in the next couple of days. You will need follow-up imaging to ensure that the lymph nodes on your CT scan resolved. Prescriptions: Meloxicam [Mobic] 15 mg PO DAILY PRN #20 tab PRN Reason: Pain methocarbamoL [Robaxin-750] 1,500 mg PO TID PRN #20 tab PRN Reason: Pain Referrals: Holly Jaffe DO [Primary Care Provider] - 1-2 days
[2024-12-23 14:51] LABS: Basophils % (A) 0 %; Eosinophils # (A) 0.1 k/uL (0-0.7); Eosinophils % (A) 1 %; HGB 13.6 gm/dL (11.4-16.0); Lymphocytes # (A) 1.2 k/uL (1.0-4.8); Lymphocytes % (A) 14 %; MCH 29.7 pg (25.0-35.0); MCHC 32.4 g/dL (31.0-37.0); MCV 91.7 fL (80.0-100.0); Mean Platelet Volume 7.9; Monocytes # (A) 0.4 k/uL (0-1.0); Monocytes % (A) 5 %; Neutrophils # (A) 6.3 k/uL (1.3-7.7); Neutrophils % (A) 78 %; Platelet Count 242 k/uL (150-450); RBC 4.58 m/uL (3.80-5.40); RDW 13.8 % (11.5-15.5); WBC 8.1 k/uL (3.8-10.6)
[2024-12-23 14:59] LABS: Appearance,Urine Clear (Clear); Bilirubin,Urine Negative (Negative); Blood,Urine Small (Negative); Color,Urine Yellow; Glucose,Urine (UA) Negative (Negative); Ketones,Urine Trace (Negative); Leukocyte Esterase,Urine Negative (Negative); Mucus,Urine Few /hpf; Nitrite,Urine Negative (Negative); Protein,Urine Trace (Negative); RBC,Urine 9 /hpf (0-5); Specific Gravity,Urine 1.034 (1.001-1.035); Squamous Epithelial Cell,Urine <1 /hpf (0-4); Urobilinogen,Urine <2.0 mg/dL (<2.0); WBC,Urine 1 /hpf (0-5)
[2024-12-23 14:59] LABS: ALT 30 U/L (4-34); African American GFR (CKD) >90 (>60 ml/min/1.73 sqM); Albumin 4.2 g/dL (3.5-5.0); Amylase 35 U/L (30-110); Anion Gap 9 mmol/L; Blood Urea Nitrogen 20 mg/dL (7-17); Calcium 9.1 mg/dL (8.4-10.2); Carbon Dioxide 26 mmol/L (22-30); Chloride 102 mmol/L (98-107); Glucose 85 mg/dL (74-99); Lipase 54 U/L (23-300); Non-African American GFR(CKD) >90 (>60 ml/min/1.73 sqM); Sodium 137 mmol/L (137-145); Total Bilirubin 0.7 mg/dL (0.2-1.3); Total Protein 6.7 g/dL (6.3-8.2)
[2024-12-23 15:04] LABS: AST 31 U/L (14-36); Alkaline Phosphatase 98 U/L (38-126); Potassium 4.2 mmol/L (3.5-5.1)
[2024-12-23] MEDS: KETOROLAC 15 MG/ML 1 ML VIAL IVP STA ×2 (18:29→20:51)
[2024-12-23] MEDS: HYDROmorphone 1 MG/ML 1 ML SYRINGE IVP STA ×2 (18:30→20:19)
[2024-12-23] MEDS: SODIUM CHLORIDE 0.9% 1,000 ML IV ONE (18:30)
[2024-12-23 18:50] LABS: INR 0.9 (<1.2); Partial Thromboplastin Time 23.7 sec (22.0-30.0); Prothrombin Time 10.1 sec (10.0-12.5)
[2024-12-23] MEDS: ACETAMINOPHEN IV (For NPO) 1,000 MG in EMPTY BAG 1 BAG IVPB STA (19:44)
--- NOTE | 2024-12-23 19:59 | CT ---
EXAMINATION TYPE: CT abdomen pelvis wo con DATE OF EXAM: 12/23/2024 7:02 PM COMPARISON: CT abdomen pelvis most recent from 03/10/2020, 02/26/2021 CLINICAL INDICATION: Female, 59 years old with history of Flank pain, hematuria; Flank pain, hematuri a TECHNIQUE: Axial CT abdomen pelvis wo con;Sagittal and coronal reformats were created on a separate workstation. Contrast used: mL of , (none if empty) Oral contrast used: without Oral Contrast (none if empty) CT DLP: 474.9 mGycm, Automated exposure control for dose reduction was used. FINDINGS: LOWER CHEST: Unremarkable ABDOMEN LIVER: Unremarkable GALLBLADDER AND BILE DUCTS: The gallbladder is surgically absent. PANCREAS: Unremarkable. SPLEEN: Unremarkable. ADRENAL GLANDS: Unremarkable. KIDNEYS AND URETERS: Bilateral renal cysts right renal cortical calcification measuring 7 mm exophyti c soft tissue-like area on the left kidney measuring 23 mm BLADDER: No evidence for wall thickening or mass given limitations of exam. REPRODUCTIVE: Unremarkable. ABDOMEN & PELVIS STOMACH AND BOWEL: No evidence of bowel obstruction. PERITONEUM/RETROPERITONEUM: No evidence of pneumoperitoneum or free fluid. VASCULATURE: No evidence of aortic aneurysm. MUSCULOSKELETAL: No acute osseous abnormalities LYMPH NODES: No gross evidence for lymphadenopathy. There is fat stranding changes in the low pelvis mesentery and prominent lymph nodes up to 9 mm in short axis. Series 202 image 65. No bowel masses de finitively visualized and bowel wall thickening visualized. Etiology uncertain. SOFT TISSUE/ABDOMINAL WALL: Unremarkable IMPRESSION: 1. Mesenteric prominent lymph nodes with fat stranding changes unclear etiology. Short-term follow-u p recommended in 3 months to ensure resolution. Findings not seen on priors in 2020 , correlate for e nteritis. Malignancy not excluded this single exam alone. 2. Bilateral renal cysts one of which appears more masslike on today's exam possibly hemorrhagic cys t given simple appearance on prior on 03/10/2020. Consider MRI for complete evaluation of the kidneys w ith renal cysts. [facility], , 12/23/2024 7:57 PM
[2024-12-23] MEDS: ONDANSETRON 4 MG ODT STARTER PACK 2 TAB BTL PO STA (20:48)
[2024-12-23] MEDS: traMADol 50 MG STARTER PACK 3 TAB BTL PO STA (20:48)
[2024-12-23] MEDS: ORPHENADRINE 30 MG/ML 2 ML VIAL IVP STA (20:49)
[2024-12-23] MEDS: HYDROmorphone 0.5 MG/0.5 ML SYRINGE IVP STA (20:49)
[2024-12-23 21:25] VITALS: BP 105/68; PULSE 78; RESP 16; TEMP 98.7
== END 2024-12-23 20:56 | disposition home or self-care (01) ==
LOC: EC 13:33
DX: N28.1 Cyst of kidney, acquired (principal); K52.9 Noninfective gastroenteritis and colitis, unspecified; F17.200 Nicotine dependence, unspecified, uncomplicated; M54.9 Dorsalgia, unspecified; I88.0 Nonspecific mesenteric lymphadenitis; Z91.030 Bee allergy status; Z91.018 Allergy to other foods; Z88.8 Allergy status to other drugs, medicaments and biological substances
CPT/HCPCS: 36415; 80053; 82150; 83605; 83690; 84484; 85025; 85610; 85730; 81001; 74176; 99284; 96365; 96375 ×2; 96376 ×2; 96361 ×2; 99406; J2360; J1171 ×2; J0131; J1885; S0119

== ENCOUNTER → 2025-04-25 | Outpatient (CLI) | payer MEDICARE, OTHER ==
[2025-04-25 15:15] LABS: Basophils # (A) 0.07 X 10*3/uL (0.00-0.10); Basophils % (A) 0.4 %; Eosinophils # (A) 0.05 X 10*3/uL (0.04-0.35); Eosinophils % (A) 0.3 %; HCT 42.2 % (37.2-46.3); HGB 13.5 g/dL (12.0-15.0); Immature Grans, Automated 1.30 %; Lymphocytes # (A) 3.73 X 10*3/uL (0.90-5.00); Lymphocytes % (A) 23.8 %; MCH 31.0 pg (27.0-32.0); MCHC 32.0 g/dL (32.0-37.0); MCV 96.8 FL (80.0-97.0); Monocytes # (A) 1.01 X 10*3/uL (0.20-1.00); Monocytes % (A) 6.5 %; NRBC Per 100 WBC 0 X 10*3/uL (0.00-0.01); Neutrophils # (A) 10.58 X 10*3/uL (1.80-7.70); Neutrophils % (A) 67.7 %; Platelet Count 337 X 10*3/uL (140-440); RBC 4.36 X 10*6/uL (4.10-5.20); RDW 14.5 % (11.5-14.5); WBC 15.64 X 10*3/uL (4.50-10.00)
[2025-04-25 15:32] LABS: Anion Gap 12.20 mmol/L (4.00-12.00); BUN/Creat Ratio 30.12 Ratio (12.00-20.00); Blood Urea Nitrogen 24.1 mg/dL (9.0-27.0); Calcium 9.8 mg/dL (8.7-10.3); Carbon Dioxide 25.8 mmol/L (21.6-31.8); Chloride 106 mmol/L (96-109); Glucose 77 mg/dL (70-110); Potassium 4.6 mmol/L (3.5-5.5); Sodium 144 mmol/L (135-145)
== END | disposition home or self-care (01) ==
LOC: LABPAT 12:11
PROVIDERS: ATTEND Urology
DX: Z01.812 Encounter for preprocedural laboratory examination (principal); N20.0 Calculus of kidney
CPT/HCPCS: 80048; 85025

== ENCOUNTER 2025-04-29 11:30 | Day surgery (SDC) | payer MEDICARE, OTHER ==
[~2025-04-29 11:30] MED LIST changes: -LACTATED RINGERS 1,000 ML IV SCH; +LIDOCAINE 1% (10MG/ML) FOR IV START INTRADERMA PRN; +ONDANSETRON 4 MG/2 ML VIAL IVP ONE; -ONDANSETRON 4 MG/2 ML VIAL IVP PRN; +droPERidol 2.5 MG/ML VIAL IVP ONE
--- NOTE | 2025-04-29 11:47 | P.HPIHPCON ---
History of Present Illness H&P Date: 04/29/25 Chief Complaint: Right renal stone This is a 59-year-old female with history of 7 mm right sided renal stone, on CT is difficult to assess whether this is a renal stone, versus parenchymal calcification versus a calyceal stone. She is having symptomatic right flank pain. She underwent previous ESWL per patient at an outside facility that failed to fragment the stone. Given her symptoms I did discuss with her the option of right-sided ureteroscopy with holmium laser. She is aware of the risk which include but not limited to bleeding, infection, injury to the ureter. Discussed also potential of not being able to remove the stone Consent for Procedure: I have explained the operation/procedure to the patient, including the risks, benefits, side effects, alternative therapies (including not receiving the proposed treatment or service), the likelihood of the patient achieving his/her goals, and potential recuperation problems for the procedure/sedation/analgesia, as well as any blood products, if indicated. I also explained to the patient the risks, benefits and side effects of the alternatives, as well as the risks related to not receiving the proposed procedure, care, treatment, or services. 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 migraine headaches History of Any Multi-Drug Resistant Organisms: C-DIFF Date of last positivie culture/infection: MDRO Source:: stool Past Surgical History: Appendectomy, Cholecystectomy, Hysterectomy, Orthopedic Surgery, Tubal Ligation, Uterine Ablation Additional Past Surgical History / Comment(s): carpel tunnel to left, ganglion cyst, SYED FUNDOPLASTY, colonoscopies & EGD, arthroscopic right knee surg. Past Anesthesia/Blood Transfusion Reactions: No Reported Reaction Additional Past Anesthesia/Blood Transfusion Reaction / Comment(s): Pt has claustrophobia. Smoking Status: Current every day smoker, Light tobacco smoker - Past Family History Mother Family Medical History: No Reported History Additional Family Medical History / Comment(s): Pancreatic disease, . Father Family Medical History: Diabetes Mellitus Medications and Allergies Home Medications Medication Instructions Recorded Confirmed Type Simvastatin [Zocor] 40 mg PO HS 02/10/16 04/28/25 History DULoxetine HCL [Cymbalta] 60 mg PO HS 12/04/16 04/28/25 History Verapamil HCl [Verapamil ER] 180 mg PO HS 04/10/17 04/28/25 History HYDROcodone/APAP 7.5-325MG [[place] 1 tab PO TID PRN 01/02/18 04/28/25 History 7.5-325] SUMAtriptan succinate [Imitrex] 50 mg PO DAILY PRN 01/02/18 04/28/25 History Cyanocobalamin (Vitamin B-12) 2,500 mcg PO DAILY 03/10/20 04/28/25 History [Vitamin B-12] Galcanezumab-Gnlm [Emgality Pen] 120 mg SQ Q28D 03/10/20 04/28/25 History L.acidoph,Paracasei, B.lactis 1 cap PO DAILY 03/10/20 04/28/25 History [Probiotic] buPROPion HCL [buPROPion HCL ER] 200 mg PO BID 03/10/20 04/28/25 History Albuterol Sulfate [Ventolin HFA] 1 - 2 puff INHALATION RT-Q6H PRN 02/26/21 04/28/25 History Dexlansoprazole [Dexilant] 60 mg PO DAILY 02/26/21 04/28/25 History Fluticasone Propion/Salmeterol 2 puff INHALATION RT-BID 02/26/21 04/28/25 History [Advair Hfa 115-21 Mcg Inhaler] Gabapentin 600 mg PO TID 02/26/21 04/28/25 History Losartan [Cozaar] 25 mg PO DAILY #30 tab 02/28/21 04/28/25 Rx Ascorbic Acid [Vitamin C] 500 mg PO DAILY 04/28/25 04/28/25 History Balance Of Nature 1 tab PO DAILY 04/28/25 History Cetirizine HCl [Zyrtec] 10 mg PO DAILY 04/28/25 04/28/25 History Dicyclomine [Bentyl] 10 mg PO AC-TID 04/28/25 04/28/25 History Meloxicam [Mobic] 15 mg PO DAILY 04/28/25 04/28/25 History Mesalamine [Canasa] 1,000 mg RECTAL HS 04/28/25 04/28/25 History Mesalamine [Mesalamine ER] 3 tab PO DAILY 04/28/25 04/28/25 History Montelukast [Singulair] 10 mg PO HS 04/28/25 04/28/25 History Naproxen [Naprosyn] 500 mg PO DIRECTED PRN 04/28/25 04/28/25 History Pantoprazole Sodium [Protonix] 20 mg PO DAILY 04/28/25 04/28/25 History methocarbamoL [Robaxin-750] 750 mg PO TID 04/28/25 04/28/25 History ondansetron HCL [Ondansetron HCl] 8 mg PO DIRECTED PRN 04/28/25 04/28/25 History predniSONE 10 mg PO DAILY 04/28/25 04/28/25 History Allergies Allergy/AdvReac Type Severity Reaction Status Date / Time venom-honey bee Allergy Severe Anaphylaxis Verified 04/28/25 12:33 [bee venom (honey bee)] coconut oil Allergy Unknown Rash/Hives Verified 04/28/25 12:33 acetone AdvReac swelling Verified 04/28/25 12:34 around nailbeds Hops plant Allergy projectile Uncoded 04/28/25 12:33 vomiting Surgical - Exam - General no distress, moderate pain - Eyes normal ocular movement, pale - ENT normal nares, normal mucosa - Respiratory normal expansion, normal respiratory effort - Abdomen Abdomen: soft, non tender, no distended - Psychiatric oriented to time, oriented to person, oriented to place Assessment and Plan Assessment: OR for right-sided ureteroscopy, holmium laser lithotripsy, stone basketing and stent insertion
[2025-04-29 12:20] LABS: Glucose,Whole Blood 91 mg/dL (70-110)
[2025-04-29] MEDS: IV FLUID CONTINUATION 1,000 ML IV ONE ×2 (12:24→14:22)
[2025-04-29] MEDS: DEXAMETHASONE SOD PHOSPHATE 4 MG/ML 1 ML VIAL IV ONE (12:28)
[2025-04-29] MEDS: LACTATED RINGERS 1,000 ML IV SCH (12:28)
[2025-04-29] MEDS ORDERED: MIDAZOLAM 2 MG/2 ML VIAL ONE (12:54)
[2025-04-29] MEDS ORDERED: fentaNYL (PF) 50 MCG/ML 2 ML AMP ONE (12:54)
[2025-04-29] MEDS ORDERED: LIDOCAINE 1% INJ 10MG/ML (20 ML MDV) ONE (12:54)
[2025-04-29] MEDS ORDERED: PROPOFOL 10 MG/ML 20 ML VIAL IV ONE (12:54)
[2025-04-29] MEDS: IOPAMIDOL-370 100ML BTL MISCELLANE ONE (13:29)
[2025-04-29 14:16] VITALS: TEMP 97.3
[2025-04-29] MEDS: HYDROmorphone 0.5 MG/0.5 ML SYRINGE IVP PRN (14:19)
--- NOTE | 2025-04-29 15:26 | P.OP ---
Date of Procedure: 04/29/25 Preoperative Diagnosis: Right renal stone Postoperative Diagnosis: Same Procedure(s) Performed: Cystoscopy, right ureteroscopy, holmium laser lithotripsy, incision of a calyceal diverticulum, stone basketing, retrograde pyelogram and a stent placement Implants: 6 Ukrainian by 24 cm stents in the right ureter Anesthesia: AUSTEN Surgeon: Chapin Mohan Pathology: none sent Condition: stable Disposition: PACU Indications for Procedure: This is a 59-year-old female with history of 7 mm right sided renal stone, on CT is difficult to assess whether this is a renal stone, versus parenchymal calcification versus a calyceal stone. She is having symptomatic right flank pain. She underwent previous ESWL per patient at an outside facility that failed to fragment the stone. Given her symptoms I did discuss with her the option of right-sided ureteroscopy with holmium laser. She is aware of the risk which include but not limited to bleeding, infection, injury to the ureter. Discussed also potential of not being able to remove the stone Operative Findings: Large stone within a calyceal diverticulum in the midpole Description of Procedure: Patient brought the operating, general anesthesia was induced. She was prepped and draped in sterile fashion placed in a dorsolithotomy position. Cystoscopy fitted through the 21 Ukrainian sheath was inserted per urethra, cystoscopy was performed which showed evidence of mucosal edema at the bladder neck but no additional abnormalities seen, there were no suspicious or papillary lesions appreciated. Attention was then carried to the right ureteral orifice which was intubated with a sensor wire, the wire was advanced under fluoroscopy into the kidney, next under fluoroscopy an 1113 Ukrainian access sheath was passed over the wire and into the proximal ureter. The flexible ureteroscope was inserted through the access sheath, renoscopy was performed which showed no stones within any the calyces, but there was a asmall opening at the level of the midpole, at this point retrograde pyelogram was performed which confirmed evidence of a calyceal diverticulum at the level, at this point using the holmium laser the calyceal diverticulum was incised, at this point I inserted the scope past the diverticular neck and into the diverticulum, ureteroscopy was performed which showed a large stone within the diverticulum. Using the holmium laser the stone was dusted, I did have to reposition the stone with a stone basket in order to obtain a good angle to continue with dusting the stone, repeat renoscopy showed no sizable fragments or injury to the kidney. At this time I advanced the wire through the ureteroscope and into the diverticulum, pullback ureteroscopy was performed showed no injury to the kidney or the ureter or any sizable fragments. At this time the ureteral stent was passed over the wire, the proximal curl was visualized on fluoroscopy and the distal curl was visualized in the cystoscope, initially the curl was within the diverticulum, but subsequently it did drop into the renal pelvis. At this point the bladder was emptied at the end of the case. Patient tolerated procedure well was taken to recovery in stable condition
[2025-04-29 15:46] VITALS: BP 161/87; PULSE 77; RESP 16
--- NOTE | 2025-04-29 16:26 | XR ---
EXAMINATION TYPE: XR KUB DATE OF EXAM: 04/29/2025 11:47 AM COMPARISON: 03/10/2020 CLINICAL INDICATION: Female, 59 years old with history of N20.0 renal stone, TECHNIQUE: XR KUB view(s) obtained. FINDINGS: Nonspecific bowel gas is present in small bowel loops as well as the colon. No suspicious dilated loo ps of bowel are evident. Psoas margins are normal. No organomegaly is present. Suspicious calcification is not identified. Faint calcification may overlying fecal debris in the rig ht upper quadrant measuring 0.7 cm. This could be summation density within the fecal debris. There is ar rounded calcification measuring 0.3 cm may be a distal right ureteral stone is not presen t on the comparison. IMPRESSION: 1. Nonspecific bowel gas pattern. 2. There may be a 0.3 cm distal right ureteral stone. 3. Possible 0.7 cm calcification over the mid to inferior right kidney. This density could be summati on with overlying fecal debris. [facility], Workstation: [facility], 04/29/2025 4:23 PM
--- NOTE | 2025-04-29 16:28 | FL ---
Fluoroscopy INDICATION: Pain FINDINGS: Fluoroscopy time: 11 seconds. Total dose area product (DAP) in uGy*m?, mGy*cm? (or similar): 219.14 Images obtained: 0. Images document the procedure. IMPRESSION: 1. Documentation of fluoroscopy. [facility], Workstation: [facility], 04/29/2025 4:25 PM
== END 2025-04-29 16:15 | disposition home or self-care (01) ==
LOC: OR 11:30
PROVIDERS: ATTEND Urology
DX: N20.0 Calculus of kidney (principal); J44.89 Other specified chronic obstructive pulmonary disease; E78.5 Hyperlipidemia, unspecified; M79.7 Fibromyalgia; M19.90 Unspecified osteoarthritis, unspecified site; I10 Essential (primary) hypertension; F17.210 Nicotine dependence, cigarettes, uncomplicated; Z87.442 Personal history of urinary calculi; Z87.11 Personal history of peptic ulcer disease; Z90.710 Acquired absence of both cervix and uterus; Z90.49 Acquired absence of other specified parts of digestive tract; Z83.3 Family history of diabetes mellitus; Z79.1 Long term (current) use of non-steroidal anti-inflammatories (NSAID); Z79.51 Long term (current) use of inhaled steroids; Z79.52 Long term (current) use of systemic steroids; Z91.030 Bee allergy status; Z79.899 Other long term (current) drug therapy
CPT/HCPCS: 74420; 74018; 52356; C2625; C1769; J2250; J1100; J0690; J2003; J3010; J2704; J1171; Q9967